=== PATIENT | female | born 1950 | race Caucasian/White ===

== ENCOUNTER 2017-06-09 09:26 | Day surgery (SDC) | payer BC ==
[~2017-06-09 09:26] MED LIST: Buffered Lidocaine 0.9% SYRIN* 5 ML/SYR SYRINGE INTRADERM ONE; Dexamethasone IV* 4 MG/ML 1 ML (4 MG) ONE; Famotidine IV* 10 MG/ML 2 ML (20 mg) IV ONE; KETAMINE HCL* 50 MG/ML 10 ML VIAL ONE; Ketorolac INJ* 30 MG/ML 1 ML VIAL ONE; Lidocaine 2% PF * 5 ML VIAL ONE; Midazolam* 1 MG/ML 5 ML VIAL (5 MG) ONE; Ondansetron INJ* 2 MG/ML VIAL ONE; Propofol* 10 MG/ML 20 ML BTL IV PUSH ONE; fentaNYL* 50 MCG/ML 2 ML VIAL (100 MCG VIAL) ONE
[2017-06-09] MEDS ORDERED: Famotidine IV* 10 MG/ML 2 ML (20 mg) ONE (09:39)
[2017-06-09] MEDS ORDERED: ceFAZolin 2 GM PREMIX (*) 50 ML IVPB ONE (09:40)
[2017-06-09] MEDS ORDERED: Buffered Lidocaine 0.9% SYRIN* 5 ML/SYR SYRINGE ONE (09:40)
[2017-06-09] MEDS ORDERED: Lidocaine 2% PF* 10 ML AMP ONE (09:58)
[2017-06-09] MEDS ORDERED: Midazolam* 1 MG/ML 2 ML VIAL (2 MG) ONE (10:46)
[2017-06-09] MEDS ORDERED: Ondansetron INJ* 2 MG/ML VIAL IV PRN (11:03)
[2017-06-09] MEDS ORDERED: fentaNYL* 50 MCG/ML 2 ML VIAL (100 MCG VIAL) ONE (11:54)
[2017-06-09] MEDS ORDERED: oxyCODONE/Acetamin 5/325 MG* TAB ONE ×2 (11:54→12:39)
[2017-06-09] MEDS: oxyCODONE/Acetamin 5/325 MG* TAB PO PRN ×2 (11:56→12:43)
[2017-06-09] MEDS: fentaNYL* 50 MCG/ML 2 ML VIAL (100 MCG VIAL) IV PRN ×4 (11:58→12:42)
[2017-06-09 13:17] VITALS: BP 158/81
--- NOTE | 2017-06-10 03:13 | OP ---
DATE OF OPERATION: 06/09/17 [facility] DATE OF : 52 SURGEON: David Hodge MD PHYSICIAN ASSISTANT PSYCHIATRY: JANE Crews ANESTHESIOLOGIST: Josue Romero MD ANESTHESIA: Monitored anesthesia care. PRE-OP DIAGNOSIS: Right first metatarsophalangeal joint arthritis. POST-OP DIAGNOSIS: Right first metatarsophalangeal joint arthritis. OPERATIVE PROCEDURE: Right first MTP joint fusion. DESCRIPTION OF PROCEDURE: The patient was taken to the operating room where a longitudinal incision was made over the first MTP joint. We incised medial and lateral to allow visualization of the joint, which was prepared for arthro- desis using a rongeur and a small power bur. We then pinned this in a neutral position with an oblique 4.0 cannulated lag screw and a F3 plate over the dorsum. A combination of locking and non-locking screws was used. X-ray intra- operatively showed satisfactory position of the hardware in the toe. We then irrigated thoroughly closing the 3-0 Vicryl dorsally, nylon for the skin, and a compression dressing. [id number]/[facility] #: [id number] MTDD
--- NOTE | 2017-06-10 07:19 | RAD ---
INDICATION: Right foot first metatarsal-phalangeal joint fusion. COMPARISON: Comparison is made with a prior x-ray study of the right foot from May 21, 2017. TECHNIQUE: 2.1 seconds of intermittent fluoroscopic guidance were provided and 2 spot films of the right foot were obtained in the operating room. FINDINGS: The films demonstrate a surgical screw and metallic plate transfixed with multiple surgical screws spanning the first metatarsal-phalangeal joint of the right foot. IMPRESSION: INTRAOPERATIVE CONTROL FILMS. CPT II Codes: 6045F
== END 2017-06-09 13:18 | disposition home or self-care (01) ==
LOC: OR 09:26
PROVIDERS: ATTEND Orthopaedic Surgery
DX: M19.071 Primary osteoarthritis, right ankle and foot (principal); F90.9 Attention-deficit hyperactivity disorder, unspecified type; F32.9 Major depressive disorder, single episode, unspecified; Z88.6 Allergy status to analgesic agent
CPT/HCPCS: 76000; A9270-GY; C1713; C1776; J0690; J1100; J1885; J2001; J2250; J2405; J2704; J3010

== ENCOUNTER 2019-03-06 11:14 | Inpatient (IN) | payer MEDICARE ==
[2019-03-06] MEDS ORDERED: Ticagrelor* 90 MG TAB PO ONE (11:18)
[2019-03-06] MEDS ORDERED: Heparin for STEMI(*) 5,000 UNITS/ML 1 ML VIAL IV ONE ×2 (11:18→11:20)
[2019-03-06] MEDS ORDERED: Ondansetron INJ* 2 MG/ML VIAL IV ONE (11:19)
[2019-03-06] MEDS ORDERED: Nitroglycerin TAB 0.4 MG* 0.4 MG TAB ONE (11:19)
[2019-03-06] MEDS ORDERED: Morphine 4 MG/ML VIAL (1 ml) 4 MG/ML VIAL IV ONE (11:19)
[2019-03-06] MEDS ORDERED: nitroGLYCERIN DRIP* 25,000 MCG/250 ML BTL ONE ×2 (11:20→11:45)
[2019-03-06] MEDS ORDERED: Aspirin 81 mg CHEW TAB* 81 MG TAB.CHEW ONE (11:20)
[2019-03-06] MEDS ORDERED: Morphine 4 MG/ML VIAL (1 ml) 4 MG/ML VIAL ONE (11:20)
[2019-03-06] MEDS ORDERED: Ondansetron INJ* 2 MG/ML VIAL ONE (11:20)
[2019-03-06] MEDS ORDERED: Aspirin 81 mg CHEW TAB* 81 MG TAB.CHEW PO ONE (11:23)
[2019-03-06] MEDS ORDERED: nitroGLYCERIN DRIP* 25,000 MCG/250 ML BTL IV ONE (11:26)
[2019-03-06 11:27] LABS: ABS Basophils 0.1 10^3/ul (0-0.2); ABS Eosinophils 0.1 10^3/ul (0-0.6); ABS Lymphocytes 2.9 10^3/ul (1.0-4.8); ABS Monocytes 0.7 10^3/ul (0-0.8); ABS Neutrophils 5.5 10^3/ul (1.5-7.7); Eosinophil % 1.6 %; Hematocrit 44 % (35-47); Lymphocyte % 31.2 %; Mean Corpuscular HGB Conc 34 g/dL (31-36); Mean Corpuscular Hemoglobin 30 pg (27-31); Mean Corpuscular Volume 88 fL (80-97); Mean Platelet Volume 8.4 fL (7.4-10.4); Platelet Count 243 10^3/uL (150-450); Red Blood Count 4.97 10^6 /uL (3.70-4.87); Red Cell Distribution Width 13 % (10-15); White Blood Count 9.2 10^3/uL (3.5-10.8)
--- NOTE | 2019-03-06 11:29 | ED ---
HPI Chest Pain - HPI Summary HPI Summary: Time seen by provider: 1121. The patient is a 68 y/o F presenting to [facility] with a chief complaint of sudden onset CP starting this morning with worsening since onset. She states that she did not wake up with the pain, but she's been having upper left back pain, which she thought was a result of recent heavy lifting. The sharp pain is currently rated 10/10 in severity. She additionally c/o nausea but no vomiting. Hx of HTN, but no previous cardiac problems. She had a recent cardiac workup with Dr. Little, bowl turner, in November, and there were no significant findings present at that time, but she has since began to work out more and eat better. Nonsmoker, daily EtOH, no substance use. - History of Current Complaint Time Seen by Provider: 03/06/19 11:17 Hx Obtained From: Patient Onset/Duration: Started Minutes Ago, Still Present Timing: Lasting Minutes Initial Severity: Moderate Current Severity: Severe Pain Intensity: 10 Pain Scale Used: 0-10 Numeric Chest Pain Location: Diffuse Chest Pain Radiates: Yes Chest Pain Radiates To:: Back - left upper Character: Sharp/Stabbing Aggravating Factor(s): Nothing Alleviating Factor(s): Nothing Associated Signs and Symptoms: Positive: Chest Pain, Nausea. Negative: Vomiting - Allergy/Home Medications Allergies/Adverse Reactions: Allergies Allergy/AdvReac Type Severity Reaction Status Date / Time ibuprofen Allergy Rash Verified 03/06/19 11:39 Home Medications: Home Medications Amlodipine 2.5 mg tab 2.5 mg PO DAILY 03/06/19 [History Confirmed 03/06/19] Metoprolol Succinate 25 mg PO BID 03/06/19 [History Confirmed 03/06/19] Venlafaxine HCl [Venlafaxine HCl ER] 37.5 mg PO DAILY 03/06/19 [History Confirmed 03/06/19] PMH/Surg Hx/FS Hx/Imm Hx Endocrine/Hematology History: Denies: Hx Diabetes, Hx Thyroid Disease Cardiovascular History: Reports: Hx Hypertension Respiratory History: Denies: Hx Asthma Musculoskeletal History: Reports: Hx Arthritis - GENERALIZED OSTEO, Hx Rheumatoid Arthritis, Hx Osteoporosis, Other Musculoskeletal History Denies: Hx Scoliosis Sensory History: Reports: Hx Contacts or Glasses Denies: Hx Hearing Aid Opthamlomology History: Reports: Hx Contacts or Glasses Neurological History: Denies: Hx Headaches, Other Neuro Impairments/Disorders Psychiatric History: Reports: Hx Depression - ON MEDS PT STATES CONTROLLED - Cancer History Hx Chemotherapy: No Hx Radiation Therapy: No - Surgical History Surgery Procedure, Year, and Place: RIGHT SHOULDER REPAIR [place] [facility] [place], hysterectomy 1991, appendix 1972. LAPAROSCOPY 1988. AP REPAIR DR LACEY 2002 [facility] Hx Anesthesia Reactions: No Infectious Disease History: Denies: Hx Hepatitis, Traveled Outside the [place] in Last 30 Days - Family History Known Family History: Positive: Hypertension - Social History Alcohol Use: Daily Alcohol Amount: WINE Hx Substance Use: No Substance Use Type: Reports: None Hx Tobacco Use: No Smoking Status (MU): Never Smoked Tobacco Do You Chew or Dip Tobacco: No Have You Chewed or Dipped Tobacco in the LAST YEAR: No Have You Smoked in the Last Year: No Review of Systems Positive: Chest Pain Positive: Nausea. Negative: Vomiting Positive: Other - upper back pain on left side All Other Systems Reviewed And Are Negative: Yes Physical Exam - Summary Physical Exam Summary: VITAL SIGNS: Reviewed. GENERAL: Patient is a well-developed and nourished female who is in distress secondary to the pain. Patient is not in any acute respiratory distress. HEAD AND FACE: No signs of trauma. No ecchymosis, hematomas or skull depressions. No sinus tenderness. EYES: PERRLA, EOMI x 2, No injected conjunctiva, no nystagmus. EARS: Hearing grossly intact. Ear canals and tympanic membranes are within normal limits. MOUTH: Oropharynx within normal limits. NECK: Supple, trachea is midline, no adenopathy, no JVD, no carotid bruit, no c- spine tenderness, neck with full ROM. CHEST: Symmetric, no tenderness at palpation LUNGS: Clear to auscultation bilaterally. No wheezing or crackles. CVS: Regular rate and rhythm, S1 and S2 present, no murmurs or gallops appreciated. ABDOMEN: Soft, non-tender. No signs of distention. No rebound no guarding, and no masses palpated. Bowel sounds are normal. EXTREMITIES: FROM in all major joints, no edema, no cyanosis or clubbing. NEURO: Alert and oriented x 3. No acute neurological deficits. Speech is normal and follows commands. SKIN: Dry and slightly clammy. Triage Information Reviewed: Yes Vital Signs Reviewed: Yes Diagnostics - Laboratory Result Diagrams: 03/06/19 11:22 03/06/19 15:01 Lab Statement: Any lab studies that have been ordered have been reviewed, and results considered in the medical decision making process. - Radiology CXR Radiology Interpretation Completed By: Radiologist Summary of Radiographic Findings: Findings suggestive of COPD, no evidence for acute disease. ED physician has reviewed this radiology report. - EKG 1116 Cardiac Rate: NL - 92 BPM EKG Rhythm: Sinus Rhythm Summary of EKG Findings: ST elevations in aVR, V1, V2, V3, and V4. ST depressions in II, III, and aVF. 1135 Cardiac Rate: NL - 94 BPM EKG Rhythm: Sinus Rhythm EKG Comparison: No Significant Change - Similar to EKG taken at 1116 on 2018 Summary of EKG Findings: ST elevations in aVR, V1, V2, V3, and V4. ST depressions in II, III, and aVF. Re-Evaluation - Re-Evaluation First Eval Re-Evaluation Time: 12:00 Comment: I discussed admission and next steps with the patient. Chest Pain Course/Dx - Course Assessment/Plan: The patient is a 68 y/o F presenting to [facility] with a chief complaint of sudden onset CP starting this morning. She states that she did not wake up with the pain, but she's been having upper left back pain, which she thought was a result of recent heavy lifting. The sharp pain is currently rated 10/10 in severity. She additionally c/o nausea but no vomiting. Hx of HTN, but no previous cardiac problems. She had a recent cardiac workup with Dr. Little, bowl turner, in November, and there were no significant findings present at that time. Nonsmoker, daily EtOH, no substance use. EKG shows a sinus rhythm at [address] elevations in aVR, V1, V2, V3 and V4, and ST depressions in II, III , and aVF. STEMI alert called at 1118. Patient was placed on a traffic monitor specialist; two IV access sites were obtained. Patient was started with aspirin, Brilinta, heparin, Zofran for nausea, and morphine for pain. The patient continues to have pain she was placed on the nitroglycerin drip. Blood work without any significant abnormality except for potassium level of 3.2, anion gap of 14, carbon dioxide of 20, troponin of 0.07, and BNP of 107. She was given potassium IV for her hypokalemia. At this point, I discussed my physical exam and findings with Dr. Horner from interventional cardiology. Dr. Horner is at bedside, and he will take the patient to the Assistant Professor Of Marine Biology. At this time the patient is hemodynamically stable alert and oriented 3. - Diagnoses Provider Diagnoses: STEMI (ST elevation myocardial infarction) During the Visit The Following Alert/Code Occurred: STEMI - called at 1118 - Provider Notifications Discussed Care Of Patient With: Jordyn Horner - special assets officer Time Discussed With Above Provider: 11:22 Instructed by Provider To: Other - I spoke with Dr. Horner concerning the patient's case; he will come see the patient in the ED. He admits the patient and will take her to the cath laboratory technician for further workup. - Critical Care Time Critical Care Time: 30-74 min Discharge - Sign-Out/Discharge Documenting (check all that apply): Patient Departure - Patient is admitted to [facility]. Patient Received Moderate/Deep Sedation with Procedure: No - Discharge Plan Condition: Stable Disposition: ADMITTED TO [facility] - Billing Disposition and Condition Condition: STABLE Disposition: Admitted to [facility] - Attestation Statements Document Initiated by Brendan: Yes Documenting Scribe: Shira Su Provider For Whom Brendan is Documenting (Include Credential): Dr. Carlos Ricks MD Scribe Attestation: IShira, scribed for Dr. Carlos Ricks MD on 03/06/19 at 1832. Scribe Documentation Reviewed: Yes Provider Attestation: The documentation as recorded by the Shira banda accurately reflects the service I personally performed and the decisions made by me, Dr. Carlos Ricks MD Status of Scribe Document: Ready
[2019-03-06 11:37] LABS: Activated Partial Thrombo Time 31.4 seconds (26.0-38.0); INR 0.9 (0.82-1.09)
[2019-03-06] MEDS ORDERED: fentaNYL* 50 MCG/ML 2 ML VIAL (100 MCG VIAL) ONE (11:44)
[2019-03-06] MEDS ORDERED: Midazolam* 1 MG/ML 5 ML VIAL (5 MG) ONE (11:44)
[2019-03-06] MEDS ORDERED: Heparin(*) 1000 UNIT/ML 10 ML VIAL CATH LAB IV ONE ×2 (11:44→13:28)
[2019-03-06] MEDS ORDERED: Lidocaine 1% INJ* 10 MG/ML 30 ML SDV ONE (11:45)
[2019-03-06] MEDS ORDERED: Iohexol 350 (CONTRAST) 200 ML MDV IV ONE ×2 (11:45→13:26)
[2019-03-06] MEDS ORDERED: VERAPAMIL 2.5 MG/ML 2 ML VIAL ** 5 mg/2 ml ONE ×2 (11:45→12:11)
[2019-03-06] MEDS ORDERED: Heparin 2 UNITS/ML IVPREMIX* 3,000 UNIT/1,500 ML BAG IV ONE (11:46)
[2019-03-06 11:48] LABS: ALT 15 U/L (7-52); AST 18 U/L (13-39); Albumin 4.8 g/dL (3.2-5.2); Alkaline Phosphatase 48 U/L (34-104); Anion Gap 14 mmol/L (2-11); Blood Urea Nitrogen 19 mg/dL (6-24); CO2 Carbon Dioxide 20 mmol/L (22-32); Calcium 9.8 mg/dL (8.6-10.3); Chloride 106 mmol/L (101-111); Creatine Kinase 83 U/L (10-223); EGFR African American 96.2 (>60); EGFR Non-African American 79.5 (>60); Globulin 2.4 g/dL (2-4); Glucose 137 mg/dL (70-100); LDL Cholesterol Direct 128 mg/dL; Potassium 3.2 mmol/L (3.5-5.0); Sodium 140 mmol/L (135-145); Total Protein 7.2 g/dL (6.4-8.9)
[2019-03-06 11:52] LABS: CKMB ng/mL 3.7 ng/mL (0.6-6.3)
[2019-03-06 12:01] LABS: Troponin I 0.07 ng/mL (<0.04)
[2019-03-06] MEDS ORDERED: KCL 10 MEQ/50 ML IVPREMIX* 10 MEQ/50 ML BAG ONE (12:25)
[2019-03-06] MEDS ORDERED: Metoprolol Tartrate IV* 1 MG/ML 5 ML VIAL ONE ×2 (12:25→12:50)
[2019-03-06 12:29] LABS: Cholesterol 225 mg/dL; HDL Cholesterol 71.4 mg/dL; LDL Cholesterol 125 mg/dL; Triglycerides 142 mg/dL
[2019-03-06] MEDS ORDERED: Nitroglycerin TAB 0.4 MG* 0.4 MG TAB SL PRN (13:50)
[2019-03-06] MEDS ORDERED: NS 0.9% 1000 ML** 1,000 ML IV SCH (14:00)
[2019-03-06] MEDS: KCL 10 MEQ/50 ML IVPREMIX* 10 MEQ/50 ML BAG IV SCH ×2 (14:55→16:00)
[2019-03-06] MEDS: Captopril TAB* 12.5 MG PO SCH ×2 (15:11→19:58)
[2019-03-06] MEDS: Carvedilol TAB* 6.25 MG PO SCH ×2 (15:11→19:58)
[2019-03-06 15:24] LABS: Creatine Kinase 1481 U/L (10-223); Potassium 3.6 mmol/L (3.5-5.0)
[2019-03-06 15:31] LABS: CKMB ng/mL 198.7 ng/mL (0.6-6.3)
[2019-03-06 15:33] LABS: Troponin I 21.66 ng/mL (<0.04)
--- NOTE | 2019-03-06 16:41 | HP ---
CC: Dr. Newell; Dr. Little HISTORY AND PHYSICAL: DATE OF ADMISSION: 03/06/19 PRIMARY CARE PHYSICIAN: Dr. Newell. PICKLING GRADER: Dr. Little. HISTORY OF PRESENT ILLNESS: A 68-year-old woman presenting to the ER with acute anteroseptal ST-elev ation infarct. She has been evaluated by Dr. Little in 2018 for palpitations with a negative Holter, echocardiogram with normal LV systolic function and a negative stress echo. She has been treated for hypertension. Yesterday, she was moving some objects, had some discomfort in her back, which she thought was muscul ar, although in retrospect, it was somewhat similar to the discomfort that she developed this morning , confined only to the upper back. This morning at around 9 o'clock, she developed chest pain, which was burning, radiated into both arm s, up to her neck, and across the top of her shoulder blades. She presented to the ER where EKG demon strated an acute anteroseptal ST-elevation infarct, STEMI was called. In the ER, she received a load ing dose of Brilinta, heparin 4000 units IV, was started on IV nitroglycerin, aspirin 324 mg. She wa s brought to the slab polisher. She has no history of heart failure symptoms or syncope. She is fairly active. PAST MEDICAL HISTORY: Hypertension, history of palpitations without syncope. PREHOSPITAL MEDICATIONS: 1. Toprol-XL 25 b.i.d. 2. Norvasc 2.5 daily. 3. Venlafaxine 37.5 mg daily. ALLERGIES: IBUPROFEN with hives, but tolerates aspirin without issue and occasional Aleve without pr oblem. FAMILY HISTORY: Positive for 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in her father in his 60s. SOCIAL HISTORY: She is a nonsmoker. She is . REVIEW OF SYSTEMS: General: No weight loss. No fever. WEBFOCUS DEVELOPER: No history of TIA or CVA. GI: No hi story of peptic ulcer disease or bleeding. : Negative. Circulatory: She had previous normal ABIs . Remainder all negative. PHYSICAL EXAM: GENERAL: When seen in the ER, she was still complaining of moderate chest discomfort. VITAL SIGNS: Her presenting BP 155/115 with a heart rate of 110. HEENT: Normal without xanthelasma, scleral injection or jaundice. EOMs normal. Cranial nerves gross ly intact. NECK: JVP and carotids normal. No bruits. No thyromegaly. Trachea midline. LUNGS: Clear to percussion and auscultation. CARDIAC: Texline and RV not palpable, regular rhythm. No audible gallop, murmur, or rub. ABDOMEN: Soft, nontender. No bruit. Aorta not palpable. Liver not palpable. Femoral pulses 2+. EXTREMITIES: Radial pulses 2+. Pedal pulses 2+. No cyanosis, clubbing, or edema. PSYCH: She is oriented and appropriate. SKIN: Warm and perfused. DIAGNOSTIC STUDIES/LAB DATA: CBC is unremarkable. BMP notable for a potassium of 3.2, creatinine 0. 73. Her random blood sugar is 137 without prior, A1c is 5.7. BNP elevated at 137. First troponin 0. 07. Cholesterol 225 with triglycerides 142, LDL 125, direct LDL 128, HDL 71.4. Chest x-ray per report, no acute changes. IMPRESSION AND PLAN: 1. Acute anteroseptal ST-elevation infarct. She underwent emergent catheterization. 2. Hypertension. 3. Dyslipidemia. 4. History of palpitations with negative previous workup. [id number]/[facility] #: [id number]
[2019-03-06] MEDS: Atorvastatin* 80 MG TAB PO SCH (17:46)
[2019-03-06] MEDS: Acetaminophen TAB* 325 MG PO PRN (19:58)
[2019-03-06] MEDS: Ticagrelor* 90 MG TAB PO SCH (19:58)
[2019-03-06 20:46] LABS: Troponin I 41.93 ng/mL (<0.04)
[2019-03-06 20:47] LABS: CKMB ng/mL > 304.0 ng/mL (0.6-6.3)
[2019-03-06 21:21] LABS: Creatine Kinase 2304 U/L (10-223)
[2019-03-06] MEDS: Metoprolol Tartrate TAB* 25 MG PO SCH (21:31)
[2019-03-06] MEDS ORDERED: Enoxaparin(*) 60 MG/0.6 ML SYR SUBCUT SCH (22:00)
[2019-03-07 02:35] LABS: Creatine Kinase 1507 U/L (10-223)
[2019-03-07 02:41] LABS: CKMB ng/mL 242.2 ng/mL (0.6-6.3)
[2019-03-07 02:46] LABS: Troponin I 47.78 ng/mL (<0.04)
[2019-03-07] MEDS: Metoprolol Tartrate TAB* 25 MG PO SCH ×3 (03:47→16:57)
[2019-03-07] MEDS ORDERED: Furosemide IV* 10 MG/ML VIAL (40 MG) IV ONE (05:03)
[2019-03-07 05:51] LABS: Anion Gap 7 mmol/L (2-11); BUN/Creatinine Ratio 23.2 (8-20); Blood Urea Nitrogen 16 mg/dL (6-24); CO2 Carbon Dioxide 24 mmol/L (22-32); Chloride 106 mmol/L (101-111); EGFR African American 102.7 (>60); EGFR Non-African American 84.9 (>60); Glucose 136 mg/dL (70-100); Potassium 3.8 mmol/L (3.5-5.0); Sodium 137 mmol/L (135-145)
[2019-03-07 06:03] LABS: Troponin I 44.89 ng/mL (<0.04)
--- NOTE | 2019-03-07 06:32 | PN ---
Hospitalist Progress Note Date of Service: 03/07/19 Called abt pt, persistent hypoxia overngiht, asymptomatic, no new chest pain, desats to high 80s while sleeping, and needs 4L to maintain sats, even after waking. No new tachycardia or cardiac sx Repeat CXR mild interstitial markings and as per prior hyperinflated lungs, no hx of COPD or smoking per H&P, will trial low dose diuretic and if no improvement may need to consider r/o PE or other V/Q mismatch
[2019-03-07] MEDS: Captopril TAB* 12.5 MG PO SCH ×3 (08:18→20:49)
[2019-03-07] MEDS: Ticagrelor* 90 MG TAB PO SCH ×2 (08:18→20:49)
[2019-03-07] MEDS: Aspirin 81 mg CHEW TAB* 81 MG TAB.CHEW PO SCH (08:18)
[2019-03-07] MEDS: Enoxaparin(*) 60 MG/0.6 ML SYR SUBCUT SCH (12:51)
[2019-03-07] MEDS: Venlafaxine EXT RELEASE CAP* 37.5 MG PO SCH (12:51)
[2019-03-07] MEDS: Atorvastatin* 80 MG TAB PO SCH (16:57)
[2019-03-08] MEDS: Enoxaparin(*) 60 MG/0.6 ML SYR SUBCUT SCH ×3 (00:03→23:46)
[2019-03-08] MEDS: Metoprolol Tartrate TAB* 25 MG PO SCH ×5 (01:00→20:49)
[2019-03-08] MEDS: Ticagrelor* 90 MG TAB PO SCH ×2 (07:20→20:49)
[2019-03-08] MEDS: Pantoprazole TAB * 40 MG TAB PO SCH (07:20)
[2019-03-08] MEDS: Captopril TAB* 12.5 MG PO SCH ×3 (07:20→20:49)
[2019-03-08] MEDS: Aspirin 81 mg CHEW TAB* 81 MG TAB.CHEW PO SCH (07:20)
[2019-03-08] MEDS: Venlafaxine EXT RELEASE CAP* 37.5 MG PO SCH (09:16)
--- NOTE | 2019-03-08 13:38 | CATH ---
CC: Dr. Newell; Dr. Little STENT REPORT: DATE OF PROCEDURE: PRIMARY CARE PHYSICIAN: Dr. Newell. CARPET MEASURER: Dr. Little. PROCEDURE: Right radial artery access, bilateral selective coronary cineangiography, left heart cath eterization, left ventriculography, stent placement, LAD 2.75 x 16 Synergy drug-eluting stent, with p roximal overlapping 2.5 x 8 Synergy drug-eluting stent. HISTORY: A 68-year-old woman with prediabetes, hypertension, and hyperlipidemia, presenting with acu te anterolateral ST elevation infarct. PROCEDURE ACCESS: Right radial artery sheath 6F slender. MEDICATIONS: 1. Subcu lidocaine. 2. IV versed. 3. IV fentanyl. 4. Nitroglycerin 300 mcg. 5. Verapamil 3 mg IA. 6. She received loading dose of Brilinta 180 mg as well as 4000 units of heparin and aspirin in the ER. 7. Additional heparin 6000 units IV total. 8. Lopressor 5, 5 mg IV. DIAGNOSTIC CATHETERS: 5F TIG4. GUIDING CATHETER: LAD, 6FLBU 3.5 wire 14 BMW, which was used to cross the proximal LAD near occlusio n, which was predilated with 2.5 x 12 balloon 6 atmospheres for 8 seconds. The area was then stented with a 2.75 x 16 Synergy drug-eluting stent, 11 atmospheres 20 seconds, post dilated with a 2.75 x 8 NC, distally to 12 atmospheres was 16, in the mid at 16 atmospheres 40 seconds, and proximally 16 at mospheres with 30 seconds. Due to a persisting ostial 75% to 80% LAD stenosis. In spite of a total of 750 mcg of IC nitroglycerin and additional stent, 2.5 x Synergy drug-eluting stent was depl oyed at the ostium of the LAD 11 atmospheres 10 seconds, post dilated with a 2.5 x 8 NC at the ostium 16 atmospheres of 30 seconds then the overlap area to 20 atmospheres for 30 seconds. The small sept al review analyst which likely had thrombus and slow flow was probed with the wire before the second sten t without any change. 5F pigtail was then used for left heart catheterization and the left ventricul ogram. HEMODYNAMICS: Initial AO 121/72, post revascularization LV 95/16 - 27, no aortic valve gradient on p ullback. ANGIOGRAPHY: Left Main: The left main is normal with minimal ostial irregularity. LAD: The LAD is moderate in size and extensive distribution, has a thrombus containing proximal 95 p manohar percent stenosis with distal EDIN-1 flow. Circumflex: The circumflex is large, codominant with a moderate marginal, a small ramus, 2 moderate posterolaterals, and ends with a small circumflex PDA. The circumflex has no significant stenosis. RCA: The RCA is relatively small, codominant with a proximal 30% stenosis, it supplies a small to mo derate PDA. After revascularization of the LAD and stenting of the persisting ostial LAD lesion, post dilatation, there is still some haziness of the origin of the first septal review analyst, the small side branch of the first diagonal persists with a tubular 80% stenosis, reference diameter less than 2 mm. Distally the LAD wraps around the apex. At the end of the procedure she is pain free. LV Gram: There is preserved anterobasal contraction as well as inferior contraction, the anterolater al wall, and apex are akinetic, visually estimated LVEF of 30%. There is no MR. CONCLUSION: 1. Single vessel disease proximal LAD, excellent angiographic result with drug- eluting stent placem ent. 2. Severe left ventricular systolic dysfunction, hopefully at least in part due to stunning. 3. Residual stenosis of the small first septal and small side branch of the first diagonal, too smal l for intervention. 4. Elevated LVEDP, otherwise unremarkable left-sided hemodynamics. 5. Successful right radial artery access. [id number]/[facility] #: [id number]
[2019-03-08] MEDS: Atorvastatin* 80 MG TAB PO SCH (17:00)
[2019-03-09 06:43] LABS: BUN/Creatinine Ratio 20.8 (8-20); EGFR African American 90.5 (>60); EGFR Non-African American 74.8 (>60); Potassium 3.9 mmol/L (3.5-5.0)
[2019-03-09] MEDS: Aspirin 81 mg CHEW TAB* 81 MG TAB.CHEW PO SCH (09:11)
[2019-03-09] MEDS: Pantoprazole TAB * 40 MG TAB PO SCH (09:11)
[2019-03-09] MEDS: Captopril TAB* 12.5 MG PO SCH ×3 (09:11→20:55)
[2019-03-09] MEDS: Venlafaxine EXT RELEASE CAP* 37.5 MG PO SCH (09:11)
[2019-03-09] MEDS: Metoprolol Tartrate TAB* 25 MG PO SCH ×3 (09:12→20:55)
[2019-03-09] MEDS: Ticagrelor* 90 MG TAB PO SCH ×2 (09:12→20:56)
--- NOTE | 2019-03-09 09:57 | ECHO ---
*[facility]* [place] [address] Fax #: [phone] Patient: Jessy Height: 63 in / Pita Tracey 160 cm : 1950 Weight: 139.7 lb / Study Date: 03/09/2019 63.5 kg Age: 68 BP: 91 / 59 Gender: F BMI/BSA: 24.8 HR: 90 bpm kg/m^2 / 1.66 m^2 *Transformation Analyst: * Nova Rucker [facility] *Referring Physician: * Jordyn Horner MD *Reading Physician: * Yuri Oropeza MD Indications: Myocardial Infarction (new). History: PMH: Anterolateral myocardial infarction (current admission, 03/06/2019). Risk factors: Hypertension. Hyperlipidemia. Labs, prior tests, procedures, and surgery: Catheterization (03/06/2019). There was a stenosis which was treated with a stent. Conclusions Summary: 1. Left ventricle: Systolic function is moderately reduced. The estimated ejection fraction is 30-35%. 2. Regional wall motion abnormality: Akinesis of the apical anterior myocardium; moderate hypokinesis of the mid anterior, mid anteroseptal, and apical myocardium; mild hypokinesis of the apical septal and apical lateral myocardium. 3. Right ventricle: Systolic function is normal. 4. Mitral valve: The possibility of chordal rupture cannot be excluded. There is trace regurgitation. 5. Aortic valve: There is no evidence of stenosis. There is no significant regurgitation. 6. Pericardium, extracardiac: There is no significant pericardial effusion. Study data: Procedure: Transthoracic echocardiography was performed. Image quality was fair. Complete 2D, spectral Doppler, and color flow Doppler. Location: Bedside. Patient status: Inpatient. Patient room number: 442-1. Rhythm: Normal sinus rhythm. Findings Left ventricle: The cavity size is normal. Wall thickness is normal. Systolic function is moderately reduced. The estimated ejection fraction is 30-35%. Regional wall motion abnormalities: Hypokinesis of the mid-apicalinferoseptal myocardium. Hypokinesis of the mid-apicalanterior and anterolateral myocardium. Akinesis of the mid-apicalanteroseptal myocardium. Akinesis of the apical anterior myocardium; moderate hypokinesis of the mid anterior, mid anteroseptal, and apical myocardium; mild hypokinesis of the apical septal and apical lateral myocardium. Doppler parameters are consistent with abnormal left ventricular relaxation (grade 1 diastolic dysfunction). Right ventricle: The cavity size is normal. Systolic function is normal. Systolic pressure is within the normal range. Left atrium: The atrium is normal in size. Right atrium: The atrium is normal in size. Mitral valve: The annulus is calcified. The leaflets are mildly thickened. The possibility of chordal rupture cannot be excluded. There is no evidence of stenosis. There is trace regurgitation. Aortic valve: The valve is trileaflet. The leaflets are normal thickness. There is no evidence of stenosis. There is no significant regurgitation. Tricuspid valve: The leaflets are normal thickness. There is no evidence of stenosis. There is trace to mild regurgitation. Pulmonic valve: The leaflets are normal thickness. There is no evidence of stenosis. There is trivial regurgitation. Aorta: Ascending aorta: The ascending aorta is appears normal. Aortic arch: The aortic arch is appears normal. The aortic root is not dilated. Pericardium: There is no significant pericardial effusion. Pulmonary arteries: Not well visualized. Systemic veins: Inferior vena cava: The vessel is normal in size. The respirophasic diameter changes are in the normal range (>= 50%). Measurements Left ventricle Value Ref Aortic valve Value Ref WILDA, LAX 4.6 cm 3.8 - 5.2 Patrick diam, ED 1.8 cm ----- ESD, LAX 3.1 cm 2.2 - 3.5 Peak v, S 1.12 m/sec ----- FS, LAX 33 % 27 - 45 VTI, S 18.2 cm ----- PW, ED, LAX 0.9 cm 0.6 - 0.9 Mean grad, S 3.0 mm Hg ----- FS (L) 22 % 27 - 45 Peak grad, S 5.0 mm Hg ----- Mid-wall FS 9 % LVOT/AV, VTI ratio 0.88 ----- PW, ED 0.9 cm 0.6 - 0.9 E', lat patrick, TDI (L) 4.7 cm/sec >=10.0 Mitral valve Value Ref E/e', lat patrikc, 17 Peak E 0.78 m/sec ----- TDI Peak A 0.93 m/sec ----- E', med patrick, TDI (L) 5.7 cm/sec >=7.0 Decel time 166 ms --- -- E/e', med patrick, 14 Peak grad, D 2.4 mm Hg ----- TDI Peak E/A ratio 0.8 ----- E', avg, TDI 5.2 cm/sec E/e', avg, TDI (H) 15 <=14 Pulmonic valve Value Ref Peak v, S 0.79 m/sec ----- LVOT Value Ref Peak grad, S 3.0 mm Hg ----- Peak arthur, S 0.88 m/sec VTI, S 16.0 cm Tricuspid valve Value Ref Mean grad, S 2 mm Hg TR peak v 2.3 m/sec <=2.8 Peak RV-RA grad, S 21 mm Hg ----- Ventricular septum Value Ref IVS, ED 0.9 cm 0.6 - 0.9 Aortic root Value Ref Root diam 3.2 cm <3.9 Right ventricle Value Ref WILDA, LAX 2.5 cm Ascending aorta Value Ref WILDA minor ax, A4C 3.1 cm 1.9 - 3.5 AAo AP diam, S 2.8 cm ----- mid Pressure, S 24 mm Hg Aortic arch Value Ref Arch diam 1.8 cm ----- Left atrium Value Ref AP dim, ES 2.90 cm 2.70 - Decending aorta Value Ref 3.80 Eduardo peak arthur 0.6 m/sec ----- ML dim, A4C 3.9 cm SI dim, A4C 4.2 cm Pulmonary artery Value Ref Vol/bsa, ES, 1-p 22 ml/m^2 11 - 40 Pressure, S 21.0 mm Hg ----- A4C Vol/bsa, ES, A/L 27 ml/m^2 16 - 34 Inferior vena cava Value Ref Diam 1.7 cm ----- Right atrium Value Ref SI dim, ES 3.6 cm 3.4 - 5.3 ML dim, ES, A4C 3.5 cm 2.6 - 4.4 SI dim, ES, A4C 3.6 cm 3.4 - 5.3 Estimated RAP 3 mm Hg Legend: (L) and (H) marika values outside specified reference range. Prepared and electronically signed by Yuri Oropeza MD 03/09/2019 09:56
--- NOTE | 2019-03-09 11:09 | PN ---
<ZoeyjesusLynnette - Last Filed: 03/09/19 11:03> Subjective Date of Service: 03/09/19 - anterior STEMI s/p PCI, SHF Interval History: No events last night, Patient denies chest pain, dizziness, palpitations, sensation of heart racing, syncope. She has been up and ambulating halls with no problems. She is asking if she can shower. Medications Active Medications: Acetaminophen (Tylenol Tab*) 650 mg PO Q4H PRN PRN Reason: HEADACHE/PAIN Last Admin: 03/06/19 19:58 Dose: 650 mg Aspirin (Aspirin 81 Mg Chew Tab*) 81 mg PO DAILY [facility] Last Admin: 03/09/19 09:11 Dose: 81 mg Atorvastatin Calcium (Lipitor*) 80 mg PO 1700 [facility] Last Admin: 03/08/19 17:00 Dose: 80 mg Captopril (Capoten Tab*) 12.5 mg PO TID [facility] Last Admin: 03/09/19 09:11 Dose: 12.5 mg Enoxaparin Sodium (Lovenox(*)) 60 mg SUBCUT Q12H [facility] Last Admin: 03/08/19 23:46 Dose: 60 mg Metoprolol Tartrate (Lopressor Tab*) 50 mg PO TID [facility] Last Admin: 03/09/19 09:12 Dose: 50 mg Nitroglycerin (Nitroglycerin Tab 0.4 Mg*) 0.4 mg SL Q5M PRN PRN Reason: ANGINA Last Admin: 03/07/19 00:05 Dose: 0.4 mg Pantoprazole Sodium (Protonix Tab*) 40 mg PO DAILY [facility] Last Admin: 03/09/19 09:11 Dose: 40 mg Ticagrelor (Brilinta*) 90 mg PO BID [facility] Last Admin: 03/09/19 09:12 Dose: 90 mg Venlafaxine HCl (Effexor Xr Cap*) 37.5 mg PO DAILY [facility] Last Admin: 03/09/19 09:11 Dose: 37.5 mg Objective Vital Signs: Temp Pulse Resp BP Pulse Ox 98.3 F 98 16 99/64 97 03/09/19 07:36 03/09/19 07:36 03/09/19 08:00 03/09/19 07:36 03/09/19 07:36 Oxygen Devices in Use Now: None Appearance: well nourished, A+O x3, NAD Ears/Nose/Mouth/Throat: NL Teeth, Lips, Gums, Mucous Membranes Moist Neck: NL Appearance and Movements; NL JVP Respiratory: Symmetrical Chest Expansion and Respiratory Effort, Clear to Auscultation Cardiovascular: NL Sounds; No Murmurs; No JVD, RRR, No Edema Extremities: No Edema Neurological: Alert and Oriented x 3 Lines/Tubes/Other Access: Clean, Dry and Intact Peripheral IV Laboratory Results: 03/06/19 11:22 03/09/19 05:50 INR (Anticoag Therapy) 0.90 (0.82-1.09) 03/06/19 11:22 APTT 31.4 seconds (26.0-38.0) 03/06/19 11:22 Total Bilirubin 0.50 mg/dL (0.2-1.0) 03/06/19 11:22 AST 18 U/L (13-39) 03/06/19 11:22 ALT 15 U/L (7-52) 03/06/19 11:22 Alkaline Phosphatase 48 U/L (34-104) 03/06/19 11:22 CK-MB (CK-2) 242.2 ng/mL (0.6-6.3) H 03/07/19 02:00 B-Natriuretic Peptide 137 pg/mL (<=100) H 03/06/19 11:22 Total Protein 7.2 g/dL (6.4-8.9) 03/06/19 11:22 Albumin 4.8 g/dL (3.2-5.2) 03/06/19 11:22 Globulin 2.4 g/dL (2-4) 03/06/19 11:22 Albumin/Globulin Ratio 2.0 (1-3) 03/06/19 11:22 Triglycerides 142 mg/dL 03/06/19 11:22 Cholesterol 225 mg/dL 03/06/19 11:22 LDL Cholesterol 125 mg/dL 03/06/19 11:22 HDL Cholesterol 71.4 mg/dL 03/06/19 11:22 03/06/19 03/06/19 03/06/19 11:22 15:01 20:15 Troponin I 0.07 H* 21.66 H* 41.93 H* 03/07/19 03/07/19 02:00 05:27 Troponin I 47.78 H* 44.89 H* Laboratory Results - last 24 hr 03/09/19 05:50 Sodium 141 Potassium 3.9 Chloride 107 Carbon Dioxide 28 Anion Gap 6 BUN 16 Creatinine 0.77 Est GFR ( Amer) 90.5 Est GFR (Non-Af Amer) 74.8 BUN/Creatinine Ratio 20.8 H Glucose 117 H Calcium 9.0 Diagnostic Imaging: Limited echo today per verbal report per Dr. Horner LVEF < 35% [facility] 03/08/2019 please refer to dictated report in EHR EKG Data: 03/09/2019; Sinus Rhythm rate 96, anterolater ST elevation in V 1-4. 1mm inferior ST depression. + anterior Q waves. Assessment/Plan #1 ? Late presenting anterior STEMI; Presented with c/o anterior chest pain described as burning radiating into neck. Troponin peaked 03/07/2019 at 47. s/p DESx2 Proximal LAD with known septal case liner lesion not amendable to PCI per report. On ASA 81/day, Brillinta 90mg Po BID, Lipitor 80mg PO QHS and Lopressor therapy. No recurrent c/o chest pain since PCI. EKG still reveals Anterolateral ST elevation. Will repeat Troponin and follow. Patient may shower off tely #2 ICM; LVEF < 35 on todays limited echo. Compensated on exam. Continue medical therapy unable to uptitrate. #3 h/o HLD goal LDL < 70 on high intensity statin therapy #4 h/o HTN; BP stable. #5 Disposition pending course. Patient full code. Lifevest order placed. will follow Attending: Jordyn Horner <Jordyn Horner - Last Filed: 03/09/19 18:11> Medications Active Medications: Acetaminophen (Tylenol Tab*) 650 mg PO Q4H PRN PRN Reason: HEADACHE/PAIN Last Admin: 03/06/19 19:58 Dose: 650 mg Aspirin (Aspirin 81 Mg Chew Tab*) 81 mg PO DAILY [facility] Last Admin: 03/09/19 09:11 Dose: 81 mg Atorvastatin Calcium (Lipitor*) 80 mg PO 1700 [facility] Last Admin: 03/08/19 17:00 Dose: 80 mg Captopril (Capoten Tab*) 12.5 mg PO TID [facility] Last Admin: 03/09/19 14:06 Dose: 12.5 mg Enoxaparin Sodium (Lovenox(*)) 60 mg SUBCUT Q12H [facility] Last Admin: 03/09/19 14:07 Dose: 60 mg Metoprolol Tartrate (Lopressor Tab*) 50 mg PO TID [facility] Last Admin: 03/09/19 14:06 Dose: 50 mg Nitroglycerin (Nitroglycerin Tab 0.4 Mg*) 0.4 mg SL Q5M PRN PRN Reason: ANGINA Last Admin: 03/07/19 00:05 Dose: 0.4 mg Pantoprazole Sodium (Protonix Tab*) 40 mg PO DAILY [facility] Last Admin: 03/09/19 09:11 Dose: 40 mg Ticagrelor (Brilinta*) 90 mg PO BID [facility] Last Admin: 03/09/19 09:12 Dose: 90 mg Venlafaxine HCl (Effexor Xr Cap*) 37.5 mg PO DAILY [facility] Last Admin: 03/09/19 09:11 Dose: 37.5 mg Objective Vital Signs: Temp Pulse Resp BP Pulse Ox 98.1 F 90 16 122/69 99 03/09/19 11:30 03/09/19 11:30 03/09/19 11:30 03/09/19 11:30 03/09/19 11:30 Laboratory Results: 03/06/19 11:22 03/09/19 05:50 INR (Anticoag Therapy) 0.90 (0.82-1.09) 03/06/19 11:22 APTT 31.4 seconds (26.0-38.0) 03/06/19 11:22 Total Bilirubin 0.50 mg/dL (0.2-1.0) 03/06/19 11:22 AST 18 U/L (13-39) 03/06/19 11:22 ALT 15 U/L (7-52) 03/06/19 11:22 Alkaline Phosphatase 48 U/L (34-104) 03/06/19 11:22 CK-MB (CK-2) 242.2 ng/mL (0.6-6.3) H 03/07/19 02:00 B-Natriuretic Peptide 137 pg/mL (<=100) H 03/06/19 11:22 Total Protein 7.2 g/dL (6.4-8.9) 03/06/19 11:22 Albumin 4.8 g/dL (3.2-5.2) 03/06/19 11:22 Globulin 2.4 g/dL (2-4) 03/06/19 11:22 Albumin/Globulin Ratio 2.0 (1-3) 03/06/19 11:22 Triglycerides 142 mg/dL 03/06/19 11:22 Cholesterol 225 mg/dL 03/06/19 11:22 LDL Cholesterol 125 mg/dL 03/06/19 11:22 HDL Cholesterol 71.4 mg/dL 03/06/19 11:22 03/06/19 03/06/19 03/06/19 11:22 15:01 20:15 Troponin I 0.07 H* 21.66 H* 41.93 H* 03/07/19 03/07/19 03/09/19 02:00 05:27 11:21 Troponin I 47.78 H* 44.89 H* 10.88 H* Assessment/Plan Stronger, ambulating w less "windedness". No orthostatic sx, no CP. RUE ok. CHF compensated, d/w her stunned vs infarcted myocardium, management. consolidate Rx.
[2019-03-09 12:06] LABS: Troponin I 10.88 ng/mL (<0.04)
[2019-03-09] MEDS: Enoxaparin(*) 60 MG/0.6 ML SYR SUBCUT SCH ×2 (14:07→23:30)
[2019-03-09] MEDS: Atorvastatin* 80 MG TAB PO SCH (17:24)
[2019-03-09] MEDS: Spironolactone TAB* 25 MG PO SCH (19:15)
[2019-03-10 06:58] LABS: BUN/Creatinine Ratio 19.2 (8-20); Calcium 9.1 mg/dL (8.6-10.3); EGFR African American 89.1 (>60); EGFR Non-African American 73.7 (>60); Potassium 4.1 mmol/L (3.5-5.0)
[2019-03-10] MEDS: Aspirin 81 mg CHEW TAB* 81 MG TAB.CHEW PO SCH (08:26)
[2019-03-10] MEDS: Spironolactone TAB* 25 MG PO SCH (08:26)
[2019-03-10] MEDS: Ticagrelor* 90 MG TAB PO SCH ×2 (08:26→20:52)
[2019-03-10] MEDS: Venlafaxine EXT RELEASE CAP* 37.5 MG PO SCH (08:27)
[2019-03-10] MEDS: Pantoprazole TAB * 40 MG TAB PO SCH (08:27)
[2019-03-10] MEDS: Lisinopril TAB* 10 MG PO SCH (08:27)
[2019-03-10] MEDS: Metoprolol Succinate XL TAB* 100 MG PO SCH ×2 (08:27→20:52)
--- NOTE | 2019-03-10 08:59 | PN ---
Subjective Date of Service: 03/10/19 - anterior stemi, ICM Interval History: No events last night, Patient states she noticed concentrated urine yesterday evening. She was fitted for lifevest yesterday and has been wearing it. I informed her that while she is on telemetry she does not need to wear lifevest. She adds that this morning she had (1) episode of diarrhea liquis in nature with hematuria. She denies dysuria but states she does have mid lower back pain. She contributed back pain to not sleeping well. No c/o chest pain, dizziness, palpitations or sob Medications Active Medications: Acetaminophen (Tylenol Tab*) 650 mg PO Q4H PRN PRN Reason: HEADACHE/PAIN Last Admin: 03/06/19 19:58 Dose: 650 mg Aspirin (Aspirin 81 Mg Chew Tab*) 81 mg PO DAILY [facility] Last Admin: 03/10/19 08:26 Dose: 81 mg Atorvastatin Calcium (Lipitor*) 80 mg PO 1700 [facility] Last Admin: 03/09/19 17:24 Dose: 80 mg Lisinopril (Prinivil Tab*) 10 mg PO DAILY [facility] Last Admin: 03/10/19 08:27 Dose: 10 mg Metoprolol Succinate (Toprol Xl Tab*) 100 mg PO BID [facility] Last Admin: 03/10/19 08:27 Dose: 100 mg Nitroglycerin (Nitroglycerin Tab 0.4 Mg*) 0.4 mg SL Q5M PRN PRN Reason: ANGINA Last Admin: 03/07/19 00:05 Dose: 0.4 mg Pantoprazole Sodium (Protonix Tab*) 40 mg PO DAILY [facility] Last Admin: 03/10/19 08:27 Dose: 40 mg Spironolactone (Aldactone Tab*) 25 mg PO DAILY [facility] Last Admin: 03/10/19 08:26 Dose: 25 mg Ticagrelor (Brilinta*) 90 mg PO BID [facility] Last Admin: 03/10/19 08:26 Dose: 90 mg Venlafaxine HCl (Effexor Xr Cap*) 37.5 mg PO DAILY [facility] Last Admin: 03/10/19 08:27 Dose: 37.5 mg Objective Vital Signs: Temp Pulse Resp BP Pulse Ox 98 F 98 16 101/63 98 03/10/19 07:20 03/10/19 07:20 03/10/19 07:20 03/10/19 07:20 03/10/19 07:20 Oxygen Devices in Use Now: None Appearance: well nourished, A+O x3, NAD Ears/Nose/Mouth/Throat: NL Teeth, Lips, Gums, Mucous Membranes Moist Neck: NL Appearance and Movements; NL JVP Respiratory: Symmetrical Chest Expansion and Respiratory Effort, Clear to Auscultation Cardiovascular: NL Sounds; No Murmurs; No JVD, RRR, No Edema Extremities: No Edema Neurological: Alert and Oriented x 3 Lines/Tubes/Other Access: Clean, Dry and Intact Peripheral IV Laboratory Results: 03/06/19 11:22 03/10/19 05:46 INR (Anticoag Therapy) 0.90 (0.82-1.09) 03/06/19 11:22 APTT 31.4 seconds (26.0-38.0) 03/06/19 11:22 Total Bilirubin 0.50 mg/dL (0.2-1.0) 03/06/19 11:22 AST 18 U/L (13-39) 03/06/19 11:22 ALT 15 U/L (7-52) 03/06/19 11:22 Alkaline Phosphatase 48 U/L (34-104) 03/06/19 11:22 CK-MB (CK-2) 242.2 ng/mL (0.6-6.3) H 03/07/19 02:00 B-Natriuretic Peptide 137 pg/mL (<=100) H 03/06/19 11:22 Total Protein 7.2 g/dL (6.4-8.9) 03/06/19 11:22 Albumin 4.8 g/dL (3.2-5.2) 03/06/19 11:22 Globulin 2.4 g/dL (2-4) 03/06/19 11:22 Albumin/Globulin Ratio 2.0 (1-3) 03/06/19 11:22 Triglycerides 142 mg/dL 03/06/19 11:22 Cholesterol 225 mg/dL 03/06/19 11:22 LDL Cholesterol 125 mg/dL 03/06/19 11:22 HDL Cholesterol 71.4 mg/dL 03/06/19 11:22 03/06/19 03/06/19 03/06/19 11:22 15:01 20:15 Troponin I 0.07 H* 21.66 H* 41.93 H* 03/07/19 03/07/19 03/09/19 02:00 05:27 11:21 Troponin I 47.78 H* 44.89 H* 10.88 H* Laboratory Results - last 24 hr 03/09/19 03/10/19 11:21 05:46 Sodium 141 Potassium 4.1 Chloride 106 Carbon Dioxide 28 Anion Gap 7 BUN 15 Creatinine 0.78 Est GFR ( Amer) 89.1 Est GFR (Non-Af Amer) 73.7 BUN/Creatinine Ratio 19.2 Glucose 114 H Calcium 9.1 Troponin I 10.88 H* Diagnostic Imaging: Limited echo today per verbal report per Dr. Horner LVEF < 35% [facility] 03/08/2019 please refer to dictated report in EHR EKG Data: 03/09/2019; Sinus Rhythm rate 96, anterolater ST elevation in V 1-4. 1mm inferior ST depression. + anterior Q waves. 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 LVEF 30-35%. Patient was fitted for lifevest yesterday. Troponin peaked at 47 on 03/07/2019. She is on ASA 81/day, Brilinta 90mg Po BID, toprol 100mg Po BID, and Lipitor 80mg Po QHS. given presentation was STEMI she will need uninterrupted DAPT for 12 months. She should go home with free 30 day supply of Brilinta prior to leaving 4 S. She has a follow up appointment on 03/19/2019 at 2:45pm with Lynnette Angulo NP. She should not drive for 7 days. She should not lift more than 5-10 lbs until further directed by cardiology in follow up. #2 Ischemic Cardiomyopathy with severe LV dysfunction; Patient fitted for lifevest. LVEF on limited echo 03/09/2019 30-35%. Compensated on exam. On Toprol 100mg Po BID, Lisinopril 10mg/day, Aldactone 25mg/day. #3 c/o Mid lower back pain with reported hematuria; Will order clean cath UA with reflux to culture, update CBC. She has been up and ambulating thus will D/ C Sub Q Lovenox. Recommend monitoring and not discharging home yet. #4 h/o HLD; Now on high intensity statin therapy. will need repeat FLP/LFTs in 6 -8 weeks. #5 Disposition pending course. Zoll to come today to do lifevest teaching. wait for UA, CBC. Will follow. Will d/w Dr. Horner. Attending: Jordyn Horner
[2019-03-10 09:10] LABS: ABS Basophils 0.1 10^3/ul (0-0.2); ABS Eosinophils 0.2 10^3/ul (0-0.6); ABS Lymphocytes 1.7 10^3/ul (1.0-4.8); ABS Monocytes 0.7 10^3/ul (0-0.8); ABS Neutrophils 6.2 10^3/ul (1.5-7.7); Eosinophil % 2.1 %; Hematocrit 37 % (35-47); Hemoglobin 12.6 g/dL (12.0-16.0); Mean Corpuscular HGB Conc 34 g/dL (31-36); Mean Corpuscular Hemoglobin 30 pg (27-31); Mean Corpuscular Volume 89 fL (80-97); Mean Platelet Volume 9.4 fL (7.4-10.4); Nucleated Red Blood Cells % 0.3; Platelet Count 180 10^3/uL (150-450); Red Blood Count 4.16 10^6 /uL (3.70-4.87); Red Cell Distribution Width 13 % (10-15); White Blood Count 8.8 10^3/uL (3.5-10.8)
[2019-03-10 10:02] LABS: Urine Appearance Cloudy; Urine Bacteria 2+ (Absent); Urine Bilirubin Negative (Negative); Urine Blood 2+ (Negative); Urine Color Yellow; Urine Glucose Negative (Negative); Urine Ketones Negative (Negative); Urine Nitrite Negative (Negative); Urine Protein Negative (Negative); Urine Red Blood Cell 1+(3-5/hpf) (Absent); Urine Specific Gravity 1.005 (1.010-1.030); Urine Squamous Epithelial Cell Present (Absent); Urine Urobilinogen Negative (Negative); Urine White Blood Cell 3+(>20/hpf) (Absent)
--- NOTE | 2019-03-10 13:22 | DS ---
ADDENDUM NOW INCLUDED ON THIS REPORT CC: Dr. Hernesto Little; Dr. Edin Newell * DISCHARGE SUMMARY: DATE OF ADMISSION: DATE OF DISCHARGE: ATTENDING PHYSICIAN: Dr. Horner, interventional cardiology.* (DICTATED BY LYNNETTE ANGULO NP) PRIMARY FRONT OFFICE MEDICAL ASSISTANT: Dr. Hernesto Little. PRIMARY CARE PHYSICIAN: Dr. Edin Newell. ADMITTING DIAGNOSES: 1. Acute anterior ST-elevation myocardial infarction. 2. History of hypertension. 3. History of hyperlipidemia. 4. Prediabetes. 5. Remote history of colitis in the 20s. DISCHARGE DIAGNOSES: 1. Anterior ST-elevation myocardial infarction, status post successful 2.75 x 16 Synergy drug-eluting stent, with proximal overlapping 2.5 x 8 mm Synergy drug - eluting stent with known residual small first septal and small side branch of first diagonal, disease not amenable to PCI, treated medically. The patient is on aspirin, Brilinta, metoprolol therapy. Lipitor has temporarily been discontinued due to profound diarrhea after initiation. We will reevaluate reinitiating Lipitor on an outpatient basis, but it will likely be a moderate dose instead of high- intensity dose. 2. Ischemic cardiomyopathy, LVEF per limited echocardiogram on 03/09/[address] Horner was less than 35%. [facility] She is on metoprolol 100 mg p.o. b.i.d., lisinopril 10 mg a day, Aldactone 25 mg a day. Renal function is stable. She will need repeat BMP next week prior to followup appointment. She is compensated on physical examination. 3. History of hypertension. Blood pressure is currently controlled on current medical therapy. 4. History of hyperlipidemia. LDL this admission was 125. Unfortunately, the patient developed profound diarrhea after initiation of high-intensity statin therapy; thus, Lipitor was discontinued. We will follow up reinitiating statin therapy next week when she follows up in our practice. 5. Complaints of diarrhea; C. diff test is currently pending. We will reevaluate prior to discharge. 6. Questionable hematuria. Urinalysis obtained demonstrates 2+ blood in the urine. The patient has no CVAT on exam. Urinalysis with reflex to culture, there was 2+ urine bacteria on UA with nitrite negative. We will follow up on prior to discharge. She may need to follow up with urology on an outpatient basis. PROCEDURES PERFORMED: The patient had a cardiac catheterization performed by Dr. Horner on 03/08/[address]-segment elevation myocardial infarction. FINDINGS: 1. Left main; normal with minimal ostial irregularity. 2. LAD; moderate in size with extensive distribution, has a thrombus containing proximal 95 plus percent stenosis, distal EDIN flow 1. 3. Left circumflex; large, codominant with moderate marginal, small ramus, 2 moderate posterolaterals, and ends with a small circumflex PDA. Circumflex has no significant stenosis. 4. Right coronary artery; relatively small, codominant with proximal 30% stenosis, supplies [id number] PDA. INTERVENTION PERFORMED: The patient underwent successful predilation with 2.5 x 12 balloon for 8 seconds. The territory was then stented with 2.75 x 16 mm Synergy drug-eluting stent. Due to persisting ostial 75% to 80% LAD stenosis, the patient underwent 2.5 x 8 mm Synergy drug-eluting stent in overlapping fashion to proximal LAD. The small septal mortician investigator which likely had thrombus and slow flow was probed with the wire before the second stent without any change. It was recommended to treat small first septal and small side branch of the first diagonal artery medically due to not being amenable to PCI. COMPLICATIONS: None. COURSE OF HOSPITAL STAY: This is a pleasant 68-year-old female patient who follows with Dr. Hernesto Little of our practice due to a notable history of hypertension and hyperlipidemia. She states that on 03/02/19 she started to notice exertional chest discomfort radiating to her neck that would resolve when she would rest; however, suddenly on 03/06/19 while gardening, she developed anterior chest pain, described as burning like in nature radiating into her upper back and neck. She states pain was persisting and intense; thus, she elected to be evaluated at [facility]. While being evaluated in the emergency department, ECG was obtained, which revealed anterior ST-segment elevation; thus, the patient was seen urgently by Dr. Horner on 03/06/19 and was admitted to the hospital for acute anteroseptal ST-segment elevation myocardial infarction. The patient received loading dose of Brilinta, heparin 4000 units IV and was started on IV nitroglycerin and aspirin 324 mg. She underwent emergent catheterization which resulted in drug-eluting stent placement x2 in overlapping fashion to proximal LAD. Troponin peaked at 47.7 on 03/07/19. Echocardiogram was updated, which revealed severe LV dysfunction, LVEF 30% to 35%, akinesis of the apical anterior myocardium, moderate hypokinesis of the mid anterior; mid anteroseptal and apical myocardium, and mild hypokinesis involving the apical septal and apicolateral myocardium. Trace mitral regurgitation per report, possibility of chordal eruption could not be excluded. No aortic stenosis. Aortic root 3.2 cm. The patient was started on heart failure guideline driven therapy. LifeVest was ordered. ZANE saw the patient during this hospitalization, fitted and educated the patient on importance of LifeVest. She is agreeable to wearing prior to discharge. She has been compensated on physical examination. Her blood pressure has been ranging 97 to 102, systolic, although she is not symptomatic. She has had no recurrent complaints of chest pain since she presented to the emergency department. Norvasc was discontinued. The patient was placed on metoprolol 100 mg p.o. b.i.d., lisinopril 10 mg a day, Aldactone 25 mg a day. Aspirin has been continued in addition to Brilinta therapy. She was initially prescribed Lipitor 80 mg p.o. q.h.s.; however, today 03/10/19, she started to develop profound diarrhea. She has had 6 liquid bowel movements today. C. diff test was ordered, which is currently pending. She also reported an episode of hematuria, although her urinalysis I was told was clear in nature and is still pending. She reports a remote history of colitis in her 20s with no recurrence. CBC is unremarkable. Depending upon course of illness today and if diarrhea improves, she may be discharged home; however, she will need to follow up with urology due to possible hematuria episode in the setting of newly prescribed dual antiplatelet therapy. Lovenox has been discontinued due to frequent ambulation. Further recommendations to follow pending C. diff test and urinalysis with reflex to culture; however, she denies dysuria. She has no CVAT on exam. DISCHARGE DIET: Low-cholesterol, low-fat. DRIVING RESTRICTIONS: No driving for 7 days. LIFTING RESTRICTIONS: No lifting more than 5 to 10 pounds or exercising until further directed in followup with cardiology. DISCHARGE HOME MEDICATIONS: Include: 1. Aspirin 81 mg a day. 2. Brilinta 90 mg p.o. b.i.d. 3. Metoprolol 100 mg a day. 4. Aldactone 25 mg a day. 5. Lisinopril 10 mg a day. 6. Protonix 40 mg a day. 7. Venlafaxine 37.5 mg a day. Please note that the patient is not going to be discharged home on high- intensity statin therapy or statin therapy due to initiation of profound diarrhea. We will reevaluate and follow up next week. LABS TO BE OBTAINED: The patient will need a basic metabolic panel next week due to initiation of Aldactone and lisinopril therapy to evaluate potassium and renal function. FOLLOWUP APPOINTMENTS: The patient is to follow up with Dr. Newell, PCP, in 7 to 10 days. She is to follow up with myself, Lynnette Angulo NP, on 03/19/19 at 2:45. Please note the patient was given free 30-day supply of Brilinta prior to discharge. Pending no complications and course of symptomatology today, she may go home later today. Dr. Horner agrees with the above assessment and plan. LYNNETTE ANGULO NP [id number]/[facility] #: [id number] DISCHARGE SUMMARY: ADDENDUM: ATTENDING PHYSICIAN: Jordyn Horner MD.* (DICTATED BY LYNNETTE ANGULO NP) DATE OF ADMISSION: 03/06/19 TENTATIVE DATE OF DISCHARGE: Pending no complications - 03/11/19 HOSPITAL COURSE: The patient had continued frequent bowel movements on plus she stayed an additional night. She states her bowel movements have improved although she has had 5 bowel movements today. Her C. diff testing was negative. Urine culture still pending. There has been no recurrent episodes of hematuria. She denies flank pain, no CVAT on exam. Vital signs are stable; systolic blood pressure remains 90 to 100 systolic. The patient is not symptomatic and has been up and ambulating. There had been no events on telemetry. The patient is stable to be discharged home. She was given a one time dose of Imodium 4 mg a day and was instructed to take 2 mg p.o. daily as needed for diarrhea upon discharge. She is to have a repeat basic metabolic panel next week. A prescription was sent to [facility]. She is to follow up with myself on 03/19/19 as previously instructed and she is to follow up with her PCP in 7 to 10 days as previously instructed. The patient is aware to seek medical evaluation if she has recurrent episodes of hematuria, if she develops fever, chills, changes in her urinary pattern such as dysuria, decreased urination, or any concerning symptoms. Her radial access site is intact, no evidence of hematoma. Strong pulse on physical examination today. She is compensated. Dr. Jordyn Horner personally saw and examined the patient and agrees to the above plan. LYNNETTE ANGULO NP [id number]/[facility] #: [id number] - 03/11/19 1051 ANA
[2019-03-10] MEDS: Acetaminophen TAB* 325 MG PO PRN (20:56)
--- NOTE | 2019-03-11 08:59 | PN ---
<KevLynnette - Last Filed: 03/11/19 08:54> Subjective Date of Service: 03/11/19 - Anterolateral STEMI, ICM Interval History: No events last night, Patient had low blood pressure at 0300 per nurse but was not symptomatic. No c/o chest pain, sob, dizziness. Does report feeling fatigue but contributes this to her frequent loose bowel movements yesterday which has improved but not resolved. No c.o hematuria since yesterday morning,no melena or hematochezia. She desires to go home. She is weeping today asking what activities she is able to do once she is discharge. Medications Active Medications: Acetaminophen (Tylenol Tab*) 650 mg PO Q4H PRN PRN Reason: HEADACHE/PAIN Last Admin: 03/10/19 20:56 Dose: 650 mg Aspirin (Aspirin 81 Mg Chew Tab*) 81 mg PO DAILY [facility] Last Admin: 03/10/19 08:26 Dose: 81 mg Lisinopril (Prinivil Tab*) 10 mg PO DAILY [facility] Last Admin: 03/10/19 08:27 Dose: 10 mg Metoprolol Succinate (Toprol Xl Tab*) 100 mg PO BID [facility] Last Admin: 03/10/19 20:52 Dose: 100 mg Nitroglycerin (Nitroglycerin Tab 0.4 Mg*) 0.4 mg SL Q5M PRN PRN Reason: ANGINA Last Admin: 03/07/19 00:05 Dose: 0.4 mg Pantoprazole Sodium (Protonix Tab*) 40 mg PO DAILY [facility] Last Admin: 03/10/19 08:27 Dose: 40 mg Spironolactone (Aldactone Tab*) 25 mg PO DAILY [facility] Last Admin: 03/10/19 08:26 Dose: 25 mg Ticagrelor (Brilinta*) 90 mg PO BID [facility] Last Admin: 03/10/19 20:52 Dose: 90 mg Venlafaxine HCl (Effexor Xr Cap*) 37.5 mg PO DAILY [facility] Last Admin: 03/10/19 08:27 Dose: 37.5 mg Objective Vital Signs: Temp Pulse Resp BP Pulse Ox 97.3 F 88 20 97/68 99 03/11/19 07:22 03/11/19 07:22 03/11/19 07:24 03/11/19 07:22 03/11/19 07:22 Oxygen Devices in Use Now: None Appearance: well nourished, A+O x3, NAD Ears/Nose/Mouth/Throat: NL Teeth, Lips, Gums, Mucous Membranes Moist Neck: NL Appearance and Movements; NL JVP Respiratory: Symmetrical Chest Expansion and Respiratory Effort, Clear to Auscultation Cardiovascular: NL Sounds; No Murmurs; No JVD, RRR, No Edema Extremities: No Edema Neurological: Alert and Oriented x 3 Lines/Tubes/Other Access: Clean, Dry and Intact Peripheral IV Laboratory Results: 03/10/19 05:46 03/10/19 05:46 INR (Anticoag Therapy) 0.90 (0.82-1.09) 03/06/19 11:22 APTT 31.4 seconds (26.0-38.0) 03/06/19 11:22 Total Bilirubin 0.50 mg/dL (0.2-1.0) 03/06/19 11:22 AST 18 U/L (13-39) 03/06/19 11:22 ALT 15 U/L (7-52) 03/06/19 11:22 Alkaline Phosphatase 48 U/L (34-104) 03/06/19 11:22 CK-MB (CK-2) 242.2 ng/mL (0.6-6.3) H 03/07/19 02:00 B-Natriuretic Peptide 137 pg/mL (<=100) H 03/06/19 11:22 Total Protein 7.2 g/dL (6.4-8.9) 03/06/19 11:22 Albumin 4.8 g/dL (3.2-5.2) 03/06/19 11:22 Globulin 2.4 g/dL (2-4) 03/06/19 11:22 Albumin/Globulin Ratio 2.0 (1-3) 03/06/19 11:22 Triglycerides 142 mg/dL 03/06/19 11:22 Cholesterol 225 mg/dL 03/06/19 11:22 LDL Cholesterol 125 mg/dL 03/06/19 11:22 HDL Cholesterol 71.4 mg/dL 03/06/19 11:22 03/06/19 03/06/19 03/06/19 11:22 15:01 20:15 Troponin I 0.07 H* 21.66 H* 41.93 H* 03/07/19 03/07/19 03/09/19 02:00 05:27 11:21 Troponin I 47.78 H* 44.89 H* 10.88 H* Laboratory Results - last 24 hr 03/10/19 03/10/19 05:46 09:45 WBC 8.8 RBC 4.16 Hgb 12.6 Hct 37 MCV 89 MCH 30 MCHC 34 RDW 13 Plt Count 180 MPV 9.4 Neut % (Auto) 70.4 Lymph % (Auto) 19.0 [place] % (Auto) 7.8 Eos % (Auto) 2.1 Baso % (Auto) 0.7 Absolute Neuts (auto) 6.2 Absolute Lymphs (auto) 1.7 Absolute Monos (auto) 0.7 Absolute Eos (auto) 0.2 Absolute Basos (auto) 0.1 Absolute Nucleated RBC 0.0 Nucleated RBC % 0.3 Urine Color Yellow Urine Appearance Cloudy Urine pH 6.0 Ur Specific [place] 1.005 L Urine Protein Negative Urine Ketones Negative Urine Blood 2+ A Urine Nitrate Negative Urine Bilirubin Negative Urine Urobilinogen Negative Ur Leukocyte Esterase 2+ A Urine WBC (Auto) 3+(>20/hpf) A Urine RBC (Auto) 1+(3-5/hpf) A Ur Squamous Epith Cells Present A Urine Bacteria 2+ A Urine Glucose Negative Diagnostic Imaging: Limited echo today per verbal report per Dr. Horner LVEF < 35% [facility] 03/08/2019 please refer to dictated report in EHR EKG Data: 03/09/2019; Sinus Rhythm rate 96, anterolater ST elevation in V 1-4. 1mm inferior ST depression. + anterior Q waves. Telemetry; Sinus rate 90's with PACs. Assessment/Plan #1 Anterolateral STEMI 03/07/2019 s/p DESx2 to LAD with residual septal galley stripper lesion being medically treated. LVEF 30-35%. Patient was fitted for lifevest. Troponin peaked at 47 on 03/07/2019. She is on ASA 81/day, Brilinta 90mg Po BID, toprol 100mg Po BID. Lip[itor on hold due to diarrhea will address re starting next Friday in follow up. given presentation was STEMI she will need uninterrupted DAPT for 12 months. She should go home with free 30 day supply of Brilinta prior to leaving 4 S. She has a follow up appointment on 03/19 at 2:45pm with Lynnette Angulo NP. She should not drive for 7 days. She should not lift more than 5-10 lbs until further directed by cardiology in follow up. #2 Ischemic Cardiomyopathy with severe LV dysfunction; Patient fitted for lifevest. LVEF on limited echo 03/09/2019 30-35%. Compensated on exam. On Toprol 100mg Po BID, Lisinopril 10mg/day, Aldactone 25mg/day. Unable to increase doses due to SBP. #3 c/o hematuria 03/09/2019; patient had one episode of hematuria. UA 2+ blood, nitrate negative. Urine culture is pending. No recurrent episodes. No CVAT. She will need to f/u with urology. I told her I would place referral when she sees me next week. She is aware to seek medical evaluation after discharge if hematuria re occurs, if she develops fever, back pain or dysuria/ urinary changes. Diarrhea improving off Lipitor Cdiff test negative. #4 h/o HLD; statin therapy on hold will re address in follow up. #5 Disposition pending course.Will D/C patient home. Will d/c Dr. Horner Attending: Jordyn Horner <Jordyn Horner - Last Filed: 03/11/19 10:37> Medications Active Medications: Acetaminophen (Tylenol Tab*) 650 mg PO Q4H PRN PRN Reason: HEADACHE/PAIN Last Admin: 03/10/19 20:56 Dose: 650 mg Aspirin (Aspirin 81 Mg Chew Tab*) 81 mg PO DAILY [facility] Last Admin: 03/11/19 09:34 Dose: 81 mg Lisinopril (Prinivil Tab*) 10 mg PO DAILY [facility] Last Admin: 03/11/19 09:34 Dose: 10 mg Metoprolol Succinate (Toprol Xl Tab*) 100 mg PO BID [facility] Last Admin: 03/11/19 09:34 Dose: 100 mg Nitroglycerin (Nitroglycerin Tab 0.4 Mg*) 0.4 mg SL Q5M PRN PRN Reason: ANGINA Last Admin: 03/07/19 00:05 Dose: 0.4 mg Pantoprazole Sodium (Protonix Tab*) 40 mg PO DAILY [facility] Last Admin: 03/11/19 09:34 Dose: 40 mg Spironolactone (Aldactone Tab*) 25 mg PO DAILY [facility] Last Admin: 03/11/19 09:34 Dose: 25 mg Ticagrelor (Brilinta*) 90 mg PO BID [facility] Last Admin: 03/11/19 09:34 Dose: 90 mg Venlafaxine HCl (Effexor Xr Cap*) 37.5 mg PO DAILY [facility] Last Admin: 03/11/19 09:34 Dose: 37.5 mg Objective Vital Signs: Temp Pulse Resp BP Pulse Ox 97.3 F 88 20 98/68 99 03/11/19 07:22 03/11/19 07:22 03/11/19 07:24 03/11/19 09:30 03/11/19 07:22 Laboratory Results: 03/10/19 05:46 03/10/19 05:46 INR (Anticoag Therapy) 0.90 (0.82-1.09) 03/06/19 11:22 APTT 31.4 seconds (26.0-38.0) 03/06/19 11:22 Total Bilirubin 0.50 mg/dL (0.2-1.0) 03/06/19 11:22 AST 18 U/L (13-39) 03/06/19 11:22 ALT 15 U/L (7-52) 03/06/19 11:22 Alkaline Phosphatase 48 U/L (34-104) 03/06/19 11:22 CK-MB (CK-2) 242.2 ng/mL (0.6-6.3) H 03/07/19 02:00 B-Natriuretic Peptide 137 pg/mL (<=100) H 03/06/19 11:22 Total Protein 7.2 g/dL (6.4-8.9) 03/06/19 11:22 Albumin 4.8 g/dL (3.2-5.2) 03/06/19 11:22 Globulin 2.4 g/dL (2-4) 03/06/19 11:22 Albumin/Globulin Ratio 2.0 (1-3) 03/06/19 11:22 Triglycerides 142 mg/dL 03/06/19 11:22 Cholesterol 225 mg/dL 03/06/19 11:22 LDL Cholesterol 125 mg/dL 03/06/19 11:22 HDL Cholesterol 71.4 mg/dL 03/06/19 11:22 03/06/19 03/06/19 03/06/19 11:22 15:01 20:15 Troponin I 0.07 H* 21.66 H* 41.93 H* 03/07/19 03/07/19 03/09/19 02:00 05:27 11:21 Troponin I 47.78 H* 44.89 H* 10.88 H* Assessment/Plan Diarrhea less frequent 36 hrs off Lipitor. Feeling better, no SOB, CP. Soft s4. Full review of D/C instructions. Ready for discharge. I 'll check Urine CS tomorrow.
[2019-03-11] MEDS: Venlafaxine EXT RELEASE CAP* 37.5 MG PO SCH (09:34)
[2019-03-11] MEDS: Aspirin 81 mg CHEW TAB* 81 MG TAB.CHEW PO SCH (09:34)
[2019-03-11] MEDS: Metoprolol Succinate XL TAB* 100 MG PO SCH (09:34)
[2019-03-11] MEDS: Pantoprazole TAB * 40 MG TAB PO SCH (09:34)
[2019-03-11] MEDS: Lisinopril TAB* 10 MG PO SCH (09:34)
[2019-03-11] MEDS: Spironolactone TAB* 25 MG PO SCH (09:34)
[2019-03-11] MEDS: Ticagrelor* 90 MG TAB PO SCH (09:34)
[2019-03-11 09:54] VITALS: BP 98/68
[2019-03-11] MEDS ORDERED: Loperamide CAP* 2 MG PO ONE (10:07)
--- NOTE | 2019-03-11 12:29 | DS ---
DISCHARGE SUMMARY: ADDENDUM: ATTENDING PHYSICIAN: Jordyn Horner MD. DATE OF ADMISSION: 03/06/19 TENTATIVE DATE OF DISCHARGE: Pending no complications - 03/11/19 HOSPITAL COURSE: The patient had continued frequent bowel movements on plus she stayed an additional night. She states her bowel movements have improved although she has had 5 bowel movements today. Her C. diff testing was negative. Urine culture still pending. There has been no recurrent episodes of hematuria. She denies flank pain, no CVAT on exam. Vital signs are stable; systolic blood pressure remains 90 to 100 systolic. The patient is not symptomatic and has been up and ambulating. There had been no events on telemetry. The patient is stable to be discharged home. She was given a one time dose of Imodium 4 mg a day and was instructed to take 2 mg p.o. daily as needed for diarrhea upon discharge. She is to have a repeat basic metabolic panel next week. A prescription was sent to [facility]. She is to follow up with myself on 03/19/19 as previously instructed and she is to follow up with her PCP in 7 to 10 days as previously instructed. The patient is aware to seek medical evaluation if she has recurrent episodes of hematuria, if she develops fever, chills, changes in her urinary pattern such as dysuria, decreased urination, or any concerning symptoms. Her radial access site is intact, no evidence of hematoma. Strong pulse on physical examination today. She is compensated. Dr. Jordyn Horner personally saw and examined the patient and agrees to the above plan. MARI VOGEL NP [id number]/[facility] #: [id number] ANA
== END 2019-03-11 11:37 | disposition home or self-care (01) | DRG 247 ==
LOC: ED 11:14 → CHICATH 12:02 → ICU 14:08 → MEDTELE 03-08 10:24
PROVIDERS: ADMIT Internal Medicine Cardiovascular Disease; ATTEND Internal Medicine Cardiovascular Disease
PROC: B2111ZZ Fluoroscopy of Multiple Coronary Arteries using Low Osmolar Contrast (ICD-10-PCS; 2019-03-06)
PROC: B2151ZZ Fluoroscopy of Left Heart using Low Osmolar Contrast (ICD-10-PCS; 2019-03-06)
PROC: 4A023N7 Measurement of Cardiac Sampling and Pressure, Left Heart, Percutaneous Approach (ICD-10-PCS; 2019-03-06)
PROC: 027035Z Dilation of Coronary Artery, One Artery with Two Drug-eluting Intraluminal Devices, Percutaneous Approach (ICD-10-PCS; principal; 2019-03-06 12:00)
DX: I21.09 ST elevation (STEMI) myocardial infarction involving other coronary artery of anterior wall (principal); K52.1 Toxic gastroenteritis and colitis; E78.5 Hyperlipidemia, unspecified; M19.90 Unspecified osteoarthritis, unspecified site; M81.0 Age-related osteoporosis without current pathological fracture; M06.9 Rheumatoid arthritis, unspecified; F32.9 Major depressive disorder, single episode, unspecified; R53.83 Other fatigue; I25.5 Ischemic cardiomyopathy; R31.9 Hematuria, unspecified; M54.5 Low back pain; I50.9 Heart failure, unspecified; R09.02 Hypoxemia; R73.03 Prediabetes; I25.10 Atherosclerotic 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of native coronary artery without angina pectoris; T46.6X5A Adverse effect of antihyperlipidemic and antiarteriosclerotic drugs, initial encounter; Y92.239 Unspecified place in hospital as the place of occurrence of the external cause; I11.0 Hypertensive 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with heart failure; Z88.6 Allergy status to analgesic agent; Z82.49 Family history of ischemic 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and other diseases of the circulatory system; Z72.89 Other problems related to lifestyle; Z90.710 Acquired absence of both cervix and uterus; Z79.82 Long term (current) use of aspirin; Z79.02 Long term (current) use of antithrombotics/antiplatelets
CPT/HCPCS: 36415; 71045; 80048; 80053; 80061; 81003; 81015; 82550; 82553; 83036; 83605; 83721; 83880; 84132; 84484; 85025; 85347; 85610; 85730; 87077; 87086; 87186; 87493; 87641; 93005; 93306; 99156; 99157; 99285; A9270-GY; C1725; C1769; C1876; C1887; C9606-LD; J1644; J1650; J1940; J2250; J2270; J2405; J3010; J3480; J3490

== ENCOUNTER 2019-08-06 21:39 | Emergency (ER) | payer MEDICARE ==
--- OUTSIDE RECORDS SUMMARY | 2019-08-06 21:56 | XMS REPORT | Continuity of Care Document ---
:1950 External Reference #:[id number] Author Name Lynnette Angulo NP (transmitted by agent of provider Tracy Hatfield) Address [address] [address] Care Team Providers Name Role Phone Edin Newell MD - Family Care Team Information Pressure Dispatcher [phone] Medicine Problems Active Problems Provider Date Osteoporosis Hernesto Little M.D. Onset: 06/25/2018 Osteoarthritis Hernesto Little M.D. Onset: 06/25/2018 Note: of cervical spine Gastroesophageal reflux disease Hernesto Little M.D. Onset: 06/25/2018 Note: silent Hypertensive disorder Hernesto Little M.D. Onset: 06/25/2018 Social History Type Date Description Comments Sex Unknown ETOH Use Drinks 4 Alcoholic Beverages Per Week Tobacco Use Start: Unknown Patient has never smoked Recreational Drug Use Denies Drug Use Smoking Status Reviewed: 06/10/19 Patient has never smoked Exercise Type/Frequency Exercises regularly on average 3 times a week- Reduced since (03/19/19) Allergies, Adverse Reactions, Alerts Active Allergies Reaction Severity Comments Date Ibuprofen 07/01/2014 Medications Active Medications SIG Qnty Indications Ordering Date Provider Metoprolol Succinate take 2 tablets by 120tabs Lynnette Angulo, 06/10/2019 ER mouth twice a day [employer]ONT [employer] DEVELOPER DESIGNER 25mg Tablets ER 24HR Lisinopril 2 1/2 tabs by mouth 60tabs I25.5 Lynnette Angulo, 04/27/2019 5mg every day before [employer] END DEVELOPER DESIGNER Tablets bed Atorvastatin Calcium 1 tab by mouth 30tabs E78.5 Lynnette Angulo, 03/19/2019 every day at FRONT END DEVELOPER DESIGNER 40mg Tablets bedtime Venlafaxine HCL ER alternating 1 tab Ruddy, by mouth with 2 Marycarmen FORGER HELPER 37.5mg Caps ER 24HR tabs by mouth daily Fosamax take one tablet by Unknown 70mg Tablets mouth every week (Friday) Valtrex take 1 tablet twice Unknown 500mg Tablets daily for 5 days as needed Estrace 1 applicator full Unknown 0.1mg/GM vaginally weekly as Cream needed Aspirin Adult Low 1 by mouth every Unknown Dose day 81mg Tablets DR Lo 1 by mouth twice a Unknown 90mg Tablets day Vitamin D 1 cap po daily Unknown 2000Unit Capsules Multivitamin Adult 1 by mouth every Unknown day Tablets Omeprazole 1 by mouth every Unknown 40mg day Capsules Melatonin 1 cap at bedtime as Unknown 5mg needed Capsules History Medications Lisinopril 1 by mouth q am, Lynnette Angulo NP 04/26/2019 - 2.5mg 2 po q pm 04/27/2019 Tablets Lisinopril 1 by mouth q am, 90tabs Hernesto Little, 03/16/2019 - 2.5mg 2 tabs q pm M.D. 04/26/2019 Tablets Immunizations Description No Information Available Vital Signs Date Vital Result Comment 06/10/2019 2:56pm Height 62 inches 5'2" Weight 130.12 lb with shoes Heart Rate 70 /min radial, regular BP Systolic Sitting 104 mmHg Ra, reg cuff BP Diastolic Sitting 62 mmHg Ra, reg cuff BP Systolic Standing 100 mmHg Ra, reg cuff BP Diastolic Standing 70 mmHg Ra, reg cuff BMI (Body Mass Index) 23.8 kg/m2 Ejection Fraction 35%-40% echo 04/08/19 05/24/2019 3:03pm Height 62 inches 5'2" Weight 130.50 lb with shoes Heart Rate 88 /min BP Systolic Sitting 108 mmHg Ra< reg BP Diastolic Sitting 68 mmHg Ra< reg BP Systolic Standing 106 mmHg Ra, reg BP Diastolic Standing 68 mmHg Ra, reg BMI (Body Mass Index) 23.9 kg/m2 Ejection Fraction 35%-40% 04/08/19 Results Test Date Facility Test Result H/L Range Note Laboratory test 04/26/2019 [facility] Potassium 3.9 mmol/L Normal 3.5-5.[address] [place] [address] [phone] Basic Metabolic 04/26/2019 [facility] Sodium 140 mmol/L Normal 135-[address] [place] [address] [phone] Chloride 105 mmol/L Normal 101-111 Co2 Carbon Dioxide 28 mmol/L Normal 22-32 Glucose 109 mg/dL High 70-100 Blood Urea Nitrogen 14 mg/dL Normal 6-24 Creatinine 0.77 mg/dL Normal 0.51-0.95 BUN/Creatinine Ratio 18.2 Normal 8-20 Calcium 9.8 mg/dL Normal 8.6-10.3 Egfr Non- 74.8 >60 Egfr 90.5 >60 1 Potassium TNP mmol/L 3.5-5.0 2 Anion Gap 7 mmol/L Normal 2-11 CBC Auto 04/07/2019 [facility] White Blood 6.0 10^3/uL Normal 3.5-10.[address] [place] [address] [phone] Red Blood Count 4.43 10^6/uL Normal 3.70-4.87 Hemoglobin 13.7 g/dL Normal 12.0-16.0 Hematocrit 39 % Normal 35-47 Mean Corpuscular Volume 89 fL Normal 80-97 Mean Corpuscular Hemoglobin 31 pg Normal 27-31 Mean Corpuscular HGB Conc 35 g/dL Normal 31-36 Red Cell Distribution Width 13 % Normal 10-15 Platelet Count 173 10^3/uL Normal 150-450 Mean Platelet Volume 9.3 fL Normal 7.4-10.4 Abs Neutrophils 4.0 10^3/uL Normal 1.5-7.7 Abs Lymphocytes 1.5 10^3/uL Normal 1.0-4.8 Abs Monocytes 0.4 10^3/uL Normal 0-0.8 Abs Eosinophils 0.1 10^3/uL Normal 0-0.6 Abs Basophils 0.1 10^3/uL Normal 0-0.2 Abs Nucleated RBC 0.0 10^3/uL Granulocyte % 65.9 % Lymphocyte % 24.6 % Monocyte % 6.3 % Eosinophil % 2.3 % Basophil % 0.9 % Nucleated Red Blood Cells % 0.0 Lipid Panel - 04/07/2019 [facility] Creatine 47 U/L Normal 10- [address] Kinase(CK) [place] [address] [phone] Comp Metabolic 04/07/2019 [facility] Sodium 140 Normal 135- [address] mmol/[place] [address] [phone] Potassium 4.6 mmol/L Normal 3.5-5.0 Chloride 104 mmol/L Normal 101-111 Co2 Carbon Dioxide 32 mmol/L Normal 22-32 Anion Gap 4 mmol/L Normal 2-11 Glucose 113 mg/dL High 70-100 Blood Urea Nitrogen 20 mg/dL Normal 6-24 Creatinine 0.79 mg/dL Normal 0.51-0.95 BUN/Creatinine Ratio 25.3 High 8-20 Calcium 9.8 mg/dL Normal 8.6-10.3 Total Protein 6.7 g/dL Normal 6.4-8.9 Albumin 4.5 g/dL Normal 3.2-5.2 Globulin 2.2 g/dL Normal 2-4 Albumin/Globulin Ratio 2.0 Normal 1-3 Total Bilirubin 0.60 mg/dL Normal 0.2-1.0 Alkaline Phosphatase 56 U/L Normal 34-104 Alt 16 U/L Normal 7-52 Ast 16 U/L Normal 13-39 Egfr Non- 72.6 >60 Egfr 87.8 >60 4 Lipid Profile 04/07/2019 [facility] Triglycerides 93 mg/dL 5 (Trig/Chol/HDL) [address] [place] [address] [phone] Cholesterol 142 mg/dL 6 HDL Cholesterol 55.9 mg/dL 7 LDL Cholesterol 68 mg/dL 8 Basic Metabolic 03/19/2019 [facility] Sodium 142 mmol/L Normal 135-[address] [place] [address] [phone] Potassium 4.0 mmol/L Normal 3.5-5.0 Chloride 107 mmol/L Normal 101-111 Co2 Carbon Dioxide 29 mmol/L Normal 22-32 Anion Gap 6 mmol/L Normal 2-11 Glucose 121 mg/dL High 70-100 Blood Urea Nitrogen 25 mg/dL High 6-24 Creatinine 0.91 mg/dL Normal 0.51-0.95 BUN/Creatinine Ratio 27.5 High 8-20 Calcium 10.0 mg/dL Normal 8.6-10.3 Egfr Non- 61.7 >60 Egfr 74.6 >60 9 Laboratory test 03/06/2019 [facility] Poc Activated 436 seconds [address] [place] [address] [phone] Laboratory test 03/06/2019 [facility] Poc Activated 229 seconds [address] [employer], [place] [id number] [phone] Laboratory test 03/06/2019 [facility] Poc Activated 266 seconds [address] [employer], [place] [id number] [phone] 1 Because ethnic data is not always readily available, this report includes an eGFR for both -Americans and non- Americans. The National Kidney Disease Education Program (NKDEP) does not endorse the use of the MDRD equation for patients that are not between the ages of 18 and 70, are , have extremes of body size, muscle mass, or nutritional status, or are non- or non-. According to the National Kidney Foundation, irrespective of diagnosis, the stage of the disease is based on the level of kidney function: Stage Description GFR(mL/min/1.73 m(2)) 1 Kidney damage with normal or decreased GFR 90 2 Kidney damage with mild decrease in GFR 60-89 3 Moderate decrease in GFR 30-59 4 Severe decrease in GFR 15-29 5 Kidney failure <15 (or dialysis) 2 Specimen Hemolyzed. Result may not be valid. Unable to report test result due to hemolysis. 3 FASTING in 2 weeks cc pmd Copy Result to: EDIN NEWELL ([id number]) 4 Because ethnic data is not always readily available, this report includes an eGFR for both -Americans and non- Americans. The National Kidney Disease Education Program (NKDEP) does not endorse the use of the MDRD equation for patients that are not between the ages of 18 and 70, are , have extremes of body size, muscle mass, or nutritional status, or are non- or non-. According to the National Kidney Foundation, irrespective of diagnosis, the stage of the disease is based on the level of kidney function: Stage Description GFR(mL/min/1.73 m(2)) 1 Kidney damage with normal or decreased GFR 90 2 Kidney damage with mild decrease in GFR 60-89 3 Moderate decrease in GFR 30-59 4 Severe decrease in GFR 15-29 5 Kidney failure <15 (or dialysis) 5 Desirable: <150 Borderline High: 150-199 High: 200-499 Very High: >500 6 Desirable: <200 Borderline High: 200-239 High: >239 7 Low: <40 Desirable: 40-60 High: >60 8 Desirable: <100 Near Optimal: 100-129 Borderline High: 130-159 High: 160-189 Very High: >189 9 Because ethnic data is not always readily available, this report includes an eGFR for both -Americans and non- Americans. The National Kidney Disease Education Program (NKDEP) does not endorse the use of the MDRD equation for patients that are not between the ages of 18 and 70, are , have extremes of body size, muscle mass, or nutritional status, or are non- or non-. According to the National Kidney Foundation, irrespective of diagnosis, the stage of the disease is based on the level of kidney function: Stage Description GFR(mL/min/1.73 m(2)) 1 Kidney damage with normal or decreased GFR 90 2 Kidney damage with mild decrease in GFR 60-89 3 Moderate decrease in GFR 30-59 4 Severe decrease in GFR 15-29 5 Kidney failure <15 (or dialysis) 10 Facility Environmental Technician: [id number] Reference Range: 74-125 seconds 11 Facility Environmental Technician: [id number] Reference Range: 74-125 seconds 12 Facility Environmental Technician: [id number] Reference Range: 74-125 seconds Procedures Date Code Description Status 04/08/2019 41632 ECHO Transthoracic, Real-Time 2D With Doppler And Color Completed Flow 04/08/2019 33561 ECHO Transthoracic, Real-Time 2D With Doppler And Color Completed Flow 03/25/2019 44352 EKG Tracing & Interpretation Completed 03/09/2019 46207 EKG, Interpretation Only Completed 03/09/2019 97385 ECHO Transthorasic Realtime 2D W Doppler & Color Flow Hosp Completed 03/08/2019 64083 EKG, Interpretation Only Completed 03/07/2019 61956 EKG, Interpretation Only Completed 03/06/2019 61556 EKG, Interpretation Only Completed 03/06/2019 10235 Left Heart Cath. Incl S/I Coronaries, Angio S/I V Gram If Completed Done 03/06/2019 67775 Revascularization Acute Total/Subtotal Occlusion Completed Medical Devices Description No Information Available Encounters Type Date Location Provider Dx Diagnosis Office Visit 05/24/2019 3:00p [facility] Lynnette Angulo, FRONT END DEVELOPER DESIGNER R00.2 Palpitations I25.5 Ischemic cardiomyopathy E78.5 Hyperlipidemia, unspecified I25.10 [place] 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 Office [facility] 04[facility]2019 [facility] Thuman, FRONT END DEVELOPER DESIGNER cardiomyopathy E78.5 Hyperlipidemia, unspecified I10 Essential (primary) hypertension I25.10 Athscl 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 Office [facility] E78[facility] Hyperlipidemia, 1:00p Cardiology Kev, FRONT END DEVELOPER DESIGNER unspecified I25.5 Ischemic cardiomyopathy I10 Essential (primary) hypertension I25.10 Athscl 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 Office Visit 03/25/2019 Jeannette Cyr E78.5 Hyperlipidemia, 3:40p Cardiology Dru Little unspecified I25.10 Athscl 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 I25.5 Ischemic cardiomyopathy I10 Essential (primary) hypertension 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 R94.31 Abnormal electrocardiogram [ECG] [EKG] Office Visit 03/19/2019 3:00p [facility] Lynnette Angulo, R31.9 Hematuria, FRONT END DEVELOPER DESIGNER unspecified E78.5 Hyperlipidemia, unspecified I25.10 Athscl 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 I25.5 Ischemic cardiomyopathy Z79.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 Office Visit 03/11/2019 8:58a [facility] Lynnette Angulo, I21.02 Stemi involving Of [employer] [place] [facility] FRONT END DEVELOPER DESIGNER left anterior descending coronary artery I25.10 Athscl 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 Z98.61 Coronary angioplasty status I25.5 Ischemic cardiomyopathy E78.5 Hyperlipidemia, unspecified I10 Essential (primary) hypertension Office Visit 03/11/2019 2:21p [facility] Jordyn Bustos I21.02 Stemi involving Of Car Seat Coverer AT [facility] MD Siri, left anterior FACC, FSCAI descending coronary artery I25.10 Athscl 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 I25.5 Ischemic cardiomyopathy R31.9 Hematuria, unspecified E78.5 Hyperlipidemia, unspecified Z98.61 Coronary angioplasty status Office Visit 03/10/2019 2:20p [facility] Jordyn Bustos I21.02 Stemi involving Of Car Seat Coverer AT [facility] MD Siri, left anterior FACC, FSCAI descending coronary artery I25.10 Athscl 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 Z98.61 Coronary angioplasty status I25.5 Ischemic cardiomyopathy E78.5 Hyperlipidemia, unspecified Office Visit 03/09/2019 2:19p [facility] Jordyn Bustos I21.02 Stemi involving Of Car Seat Coverer AT [facility] MD Siri, left anterior FACC, FSCAI descending coronary artery I25.10 Athscl 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 Z98.61 Coronary angioplasty status I25.5 Ischemic cardiomyopathy E78.5 Hyperlipidemia, unspecified Office Visit 03/08/2019 4:25p [facility] Jordyn Bustos I21.02 Stemi involving Of Car Seat Coverer AT [facility] MD Siri, left anterior FACC, FSCAI descending coronary artery I50.9 Heart failure, unspecified Office Visit 03/07/2019 4:24p [facility] Jordyn Bustos I21.02 Stemi involving Of Car Seat Coverer AT [facility] Horner MD, left anterior FACC, FSCAI descending coronary artery I50.9 Heart failure, unspecified Office Visit 03/06/2019 4:06p [facility] Jordyn Bustos I21.02 Stemi involving Of Car Seat Coverer AT [facility] MD Siri, left anterior FACC, FSCAI descending coronary artery I25.10 Athscl 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 I10 Essential (primary) hypertension E78.5 Hyperlipidemia, unspecified Office Visit 01/28/2019 9:30a [facility] Padma Osorio I10 Essential ( primary) Foster, N.P. hypertension R94.31 Abnormal electrocardiogram [ECG] [EKG] R06.00 Dyspnea, unspecified R00.2 Palpitations R01.1 Cardiac murmur, unspecified Assessments Date Code Description Provider 06/10/2019 I25.5 Ischemic cardiomyopathy Lynnette Angulo, FRONT END DEVELOPER DESIGNER 06/10/2019 E78.5 Hyperlipidemia, unspecified Lynnette Thuman, FRONT END DEVELOPER DESIGNER 06/10/2019 I25.10 Atherosclerotic 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of Lynnette Angulo NP [place] coronary artery with 06/10/2019 M79.18 Myalgia, other site Lynnette Angulo, FRONT END DEVELOPER DESIGNER 05/24/2019 R00.2 Palpitations Lynnette Angulo, FRONT END DEVELOPER DESIGNER 05/24/2019 I25.5 Ischemic cardiomyopathy Lynnette Angulo, FRONT END DEVELOPER DESIGNER 05/24/2019 E78.5 Hyperlipidemia, unspecified Lynnette Thuman, FRONT END DEVELOPER DESIGNER 05/24/2019 I25.10 Atherosclerotic 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of Lynnette Angulo FRONT END DEVELOPER DESIGNER [place] coronary artery with 04/27/2019 I25.5 Ischemic cardiomyopathy Lynnette Angulo, FRONT END DEVELOPER DESIGNER 04/27/2019 E78.5 Hyperlipidemia, unspecified Lynnette Thuman, FRONT END DEVELOPER DESIGNER 04/27/2019 I10 Essential (primary) [facility] END DEVELOPER DESIGNER 04/27/2019 I25.10 Atherosclerotic 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of Lynnette Angulo FRONT END DEVELOPER DESIGNER [place] coronary artery with 04/16/2019 E78.5 Hyperlipidemia, unspecified Lynnette Thuman, FRONT END DEVELOPER DESIGNER 04/16/2019 I25.5 Ischemic cardiomyopathy Lynnette Angulo, FRONT END DEVELOPER DESIGNER 04/16/2019 I10 Essential (primary) hypertension [facility] FR[employer] END DEVELOPER DESIGNER 04/16/2019 I25.10 Atherosclerotic 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of Lynnette Angulo NP [place] coronary artery with 04/08/2019 I25.5 Ischemic cardiomyopathy Hernesto Little M.D. 04/08/2019 I25.5 Ischemic cardiomyopathy [facility] Schedule 03/25/2019 E78.5 Hyperlipidemia, unspecified Hernesto Little M.D. 03/25/2019 I25.10 Atherosclerotic 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of Hernesto Little M.D. [place] coronary artery with 03/25/2019 I25.5 Ischemic cardiomyopathy Hernesto Little M.D. 03/25/2019 I10 Essential (primary) hypertension Hernesto Little M.D. 03/25/[address] elevation (Stemi) myocardial Hernesto Little M.D. infarction involving left an 03/25/2019 R94.31 Abnormal electrocardiogram [ECG] [EKG] Hernesto Little M.D. 03/19/2019 R31.9 Hematuria, unspecified [facility], FRONT END DEVELOPER DESIGNER 03/19/2019 E78.5 Hyperlipidemia, unspecified [facility], FRONT END DEVELOPER DESIGNER 03/19/2019 I25.10 Atherosclerotic 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of Lynntete Angulo FRONT END DEVELOPER DESIGNER [place] coronary artery with 03/19/2019 I25.5 Ischemic cardiomyopathy [facility], FRONT END DEVELOPER DESIGNER 03/19/2019 Z79.899 Other alf (current) drug therapy [facility] FR[employer] END DEVELOPER DESIGNER 03/11/[address] elevation (Stemi) [facility] FRONT END DEVELOPER DESIGNER infarction involving left an 03/11/[address] elevation (Stemi) myocardial Jordyn Horner MD, FACC , infarction involving left an [facility] 03/11/2019 I25.10 Atherosclerotic 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of Lynnette Kev FRONT END DEVELOPER DESIGNER [place] coronary artery with 03/11/2019 I25.10 Atherosclerotic 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of Jordyn Horner MD, FACC, [place] coronary artery with [facility] 03/11/2019 Z98.61 Coronary angioplasty status Lynnette Angulo, FRONT END DEVELOPER DESIGNER 03/11/2019 I25.5 Ischemic cardiomyopathy Jordyn Horner MD, FACC, [facility] 03/11/2019 I25.5 Ischemic cardiomyopathy [facility], FRONT END DEVELOPER DESIGNER 03/11/2019 R31.9 Hematuria, unspecified Jordyn Horner MD, FACC, [facility] 03/11/2019 E78.5 Hyperlipidemia, unspecified [facility], FRONT END DEVELOPER DESIGNER 03/11/2019 E78.5 Hyperlipidemia, unspecified Jordyn Horner MD, FACC, [facility] 03/11/2019 I10 Essential (primary) hypertension [facility], FRONT END DEVELOPER DESIGNER 03/11/2019 Z98.61 Coronary angioplasty status Jordyn Horner MD, FACC, [facility] 03/10/[address] elevation (Stemi) myocardial Jordyn Horner MD, FACC , infarction involving left an [facility] 03/10/2019 I25.10 Atherosclerotic 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of Jordyn Horner MD, FACC, [place] coronary artery with [facility] 03/10/2019 Z98.61 Coronary angioplasty status Jordyn Horner MD, FACC, [facility] 03/10/2019 I25.5 Ischemic cardiomyopathy Jordyn Horner MD, FACC, [facility] 03/10/2019 E78.5 Hyperlipidemia, unspecified Jordyn Horner MD, FACC, [facility] 03/09/2019 R94.31 Abnormal electrocardiogram [ECG] [EKG] Jordyn Horner MD, FACC, [facility] 03/09/[address] elevation (Stemi) myocardial Jordyn Horner MD, FACC , infarction involving left an [facility] 03/09/2019 I25.10 Atherosclerotic 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of Jordyn Horner MD, FACC, [place] coronary artery with [facility] 03/09/2019 Z98.61 Coronary angioplasty status Jordyn Horner MD, FACC, [facility] 03/09/2019 I25.5 Ischemic cardiomyopathy Jordyn Horner MD, FACC, [facility] 03/09/2019 E78.5 Hyperlipidemia, unspecified Jordyn Horner MD, FACC, [facility] 03/09/[address] elevation (Stemi) myocardial Yuri Oropeza M.D. infarction involving left an 03/08/2019 R94.31 Abnormal electrocardiogram [ECG] [EKG] Jordyn Horner MD, FACC, [facility] 03/08/[address] elevation (Stemi) myocardial Jordyn Horner MD, FACC , infarction involving left an [facility] 03/08/2019 I50.9 Heart failure, unspecified Jordyn Horner MD, FACC, [facility] 03/07/2019 R94.31 Abnormal electrocardiogram [ECG] [EKG] Jordyn Horner MD, FACC, [facility] 03/07/[address] elevation (Stemi) myocardial Jordyn Horner MD, FACC , infarction involving left anterior FSCAI descending coronary artery 03/07/2019 I50.9 Heart failure, unspecified Jordyn Horner MD, FACC, [facility] 03/06/2019 R94.31 Abnormal electrocardiogram [ECG] [EKG] Jordyn Horner MD, FACC, [facility] 03/06/[address] elevation (Stemi) myocardial Jordyn Horner MD, FACC , infarction involving left an [facility] 03/06/2019 I25.10 Atherosclerotic 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of Jordyn Horner MD, [facility], [place] coronary artery with [facility] 03/06/2019 I10 Essential (primary) hypertension Jordyn Horner MD, [facility], [facility] 03/06/2019 E78.5 Hyperlipidemia, unspecified Jordyn Horner MD, [facility], [facility] 01/28/2019 I10 Essential (primary) hypertension Padma Schafer, N.P. 01/28/2019 R94.31 Abnormal electrocardiogram [ECG] [EKG] Padma Schafer, N.P. 01/28/2019 R06.00 Dyspnea, unspecified Padma Schafer, N.P. 01/28/2019 R00.2 Palpitations Padma Schafer, N.P. 01/28/2019 R01.1 Cardiac murmur, unspecified Padma Schafer, N.P. Plan of Treatment Future Appointment(s):07/22/2019 1:30 pm - [place] [facility]08/10/2019 3:40 pm - Hernesto Little M.D. at [facility]08/2019 - Lynnette Angulo NPI25.5 Ischemic cardiomyopathyNew Orders: Echocardiogram, Limited Study, Scheduled: 07/22/19Recommendations:Please go home and confirm lisinopril dose and call me.E78.5 Hyperlipidemia, knseblaocfeD36.10 Atherosclerotic 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ithM79.18 Myalgia, other site Functional Status Description No Information Available Mental Status Description No Information Available Referrals Refer to Reason for Referral Status Appt Date Geovani Orourke MD Sent [address] [place], [place] [id number] [phone] [facility] Sent [address], [place] [id number] [phone]
--- OUTSIDE RECORDS SUMMARY | 2019-08-06 21:56 | XMS REPORT | Continuity of Care Document ---
:1950 External Reference #:[id number] Author Name JANE Kenny Address [address] [place] [address] Care Team Providers Name Role Phone Edin Newell MD - Family Medicine Care Team Information [employer] Rohit Sanders MD - Care Team Information [employer] [phone] Otolaryngology [place] Lawrence MD - Cardiovascular Care Team Information [employer] [phone] Disease Problems Active Problems Provider Date Dysthymia Edin Newell M.D. 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 Onset: 03/03/2017 pathological fracture Essential hypertension Edin Newell M.D. Onset: 05/11/2018 Gastroesophageal reflux disease Edin Newell M.D. 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 Onset: 03/13/2019 Dong hematuria Sandeep Knowles M.D. Onset: 03/13/[address] segment elevation myocardial Sandeep Knowles M.D. 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 2caps S20.469A Edin Newell, 2018 M.D. 100mg Capsules Atorvastatin Calcium 1 by mouth every day DR. Gallagher 04/14/2019 Doctor 40mg Tablets Omeprazole 1 by mouth every day 90caps Marycarmen 04/14/2019 40mg Ruddy, TOBACCO STRIPPER Capsules Alendronate Sodium Take One Tablet By 12tabs Edin Newell, 01/28/2019 Mouth Once Weekly M.D. 70mg Tablets Vitamin D 1 po qd Family Medicine 01/08/2014 [facility] Caps[facility] [place] Venlafaxine HCL ER take one capsule by 90caps F34.1 Edin Newell, 06/15 mouth every day M.D. 37.5mg Caps ER 24HR alternating with 2 capsules every other day as directed Valtrex 2 by mouth every day 20tabs Edin Newell, 12/30/2007 500mg Tablets x 5 days as needed M.D. Estrace 1 applicatorful Unknown 0.1mg/GM vaginally weekly Cream Brilinta 1 by mouth twice a Unknown 90mg Tablets day Nitroglycerin dissolve one tablet Unknown 0.4mg under the tongue as Tablets Sub needed, repeat every 5 minutes up to three tablets, call 911 after 3 tablets Aspirin 81 1 by mouth every day Unknown 81mg Tablets Multivitamin Adult 1 by mouth every day Unknown Tablets Metoprolol Succinate 1 by mouth bid I10 Unknown ER 50mg Tablets ER 24HR Lisinopril 2 by mouth every day Unknown 10mg Tablets Lisinopril 3 by mouth every day Unknown 5mg Tablets History Medications Macrobid 1 by mouth 14caps N39.0 Susan Shira 03/12/2019 - 100mg twice a day JIL Mejias 03/19/2019 Capsules Immunizations CPT Code Status Date Vaccine Lot # [id number] Given 05/24/2019 Pneumococcal Immunization [id number] Given 08/25/2018 High-Dose, Influenza Virus Vacccine-fluzone 65 and older 76555 Given 06/23/2017 Influenza Vac, Quadrivalent, Slit Virus, Im [id number] 79389 Given 03/03/2017 Pneumococcal Conjugate Vacc-13 [id number] 08969 Given 09/04/2014 DO Not Use Split Influenza Virus Vaccine 99067 Given 07/21/2013 Zostivax [id number] Given 07/06/2013 DO Not Use Split Influenza Virus Vaccine 02956 Given 07/07/2012 DO Not Use Split Influenza Virus Vaccine [id number] Given 02/17/2012 Tdap Tetanus, W Pertussis [id number] 85923 Given 10/15/2009 H1N1 Virus Vaccine Vital Signs Date Vital Result Comment 07/14/2019 3:22pm BP Systolic 110 mmHg BP Diastolic 70 mmHg Heart Rate 68 /min Body Temperature 98.1 F Respiratory Rate 16 /min Weight 130.00 lb 05/24/2019 10:22am BP Systolic 118 mmHg BP Diastolic 72 mmHg Heart Rate 76 /min Body Temperature 97.8 F Respiratory Rate 16 /min Height 63 inches 5'3" Weight 131.00 lb BMI (Body Mass Index) 23.2 kg/m2 Results Test Date Facility Test Result H/L Range Note Basic Metabolic Panel 06/22/2019 [facility] [place]odium 140 mmol/L Normal 135-145 Potassium 4.4 mmol/L Normal 3.5-5.0 Chloride 106 mmol/L Normal 101-111 Co2 Carbon Dioxide 29 mmol/L Normal 22-32 Anion Gap 5 mmol/L Normal 2-11 Glucose 92 mg/dL Normal 70-100 Blood Urea Nitrogen 23 mg/dL Normal 6-24 Creatinine 0.75 mg/dL Normal 0.51-0.95 BUN/Creatinine Ratio 30.7 High 8-20 Calcium 9.6 mg/dL Normal 8.6-10.3 Egfr Non- 77.1 >60 Egfr 93.3 >60 1 Laboratory test finding 06/22/2019 [facility] [place] Creatine Kinase(CK) 58 U/L Normal 10-223 TSH (Thyroid Stim Horm) 2.18 mcIU/mL Normal 0.34-5.60 Laboratory test finding 04/26/2019 [facility] [place] Potassium Redraw 3.9 mmol/L Normal 3.5-5.0 Basic Metabolic Panel 04/26/2019 [facility] [place] Sodium 140 mmol/L Normal 135-145 Chloride 105 mmol/L Normal 101-111 Co2 Carbon Dioxide 28 mmol/L Normal 22-32 Glucose 109 mg/dL High 70-100 Blood Urea Nitrogen 14 mg/dL Normal 6-24 Creatinine 0.77 mg/dL Normal 0.51-0.95 BUN/Creatinine Ratio 18.2 Normal 8-20 Calcium 9.8 mg/dL Normal 8.6-10.3 Egfr Non- 74.8 >60 Egfr 90.5 >60 2 Potassium TNP mmol/L 3.5-5.0 3 Anion Gap 7 mmol/L Normal 2-11 Laboratory test finding 04/07/2019 [facility] [place] Creatine Kinase(CK) 47 U/L Normal 10-223 4 Lipid Profile 04/07/2019 [facility] [place] Triglycerides 93 mg/dL 5 (Trig/Chol/HDL) Cholesterol 142 mg/dL 6 HDL Cholesterol 55.9 mg/dL 7 LDL Cholesterol 68 mg/dL 8 Comp Metabolic Panel 04/07/2019 [facility] [place] Sodium 140 mmol/L Normal 135-145 Potassium 4.6 mmol/L Normal 3.5-5.0 Chloride 104 [...] Egfr Non- 72.6 >60 Egfr 87.8 >60 9 CBC Auto Diff 04/07/2019 [facility] [place] White Blood Count 6.0 10^3/uL Normal 3.5- 10.8 Red Blood Count 4.43 10^6/uL Normal 3.70-4.87 [...] % Nucleated Red Blood Cells % 0.0 Basic Metabolic Panel 03/19/2019 [facility] [place] Sodium 142 mmol/L Normal 135-145 Potassium 4.0 mmol/L Normal 3.5-5.0 Chloride 107 mmol/L Normal 101-111 Co2 Carbon Dioxide 29 mmol/L Normal 22-32 Anion Gap 6 mmol/L Normal 2-11 Glucose 121 mg/dL High 70-100 Blood Urea Nitrogen 25 mg/dL High 6-24 Creatinine 0.91 mg/dL Normal 0.51-0.95 BUN/Creatinine Ratio 27.5 High 8-20 Calcium 10.0 mg/dL Normal 8.6-10.3 Egfr Non- 61.7 >60 Egfr 74.6 >60 10 Laboratory test 03/06/2019 [facility] [place] Poc Activated 436 seconds 11 finding Clotting Time Laboratory test 03/06/2019 [facility] [place] Poc Activated 229 seconds 12 finding Clotting Time Laboratory test 03/06/2019 [facility] [place] Poc Activated 266 seconds 13 finding Clotting Time CBC Auto Diff 03/06/2019 [facility] [place] White Blood Count 9.2 10^3/uL Normal 3.5- 10.8 Red Blood Count 4.97 10^6/uL High 3.70-4.87 Hemoglobin 15.0 g/dL Normal 12.0-16.0 Hematocrit 44 % Normal 35-47 Mean Corpuscular Volume 88 fL Normal 80-97 Mean Corpuscular Hemoglobin 30 pg Normal 27-31 Mean Corpuscular HGB Conc 34 g/dL Normal 31-36 Red Cell Distribution Width 13 % Normal 10-15 Platelet Count 243 10^3/uL Normal 150-450 Mean Platelet Volume 8.4 fL Normal 7.4-10.4 Abs Neutrophils 5.5 10^3/uL Normal 1.5-7.7 Abs Lymphocytes 2.9 10^3/uL Normal 1.0-4.8 Abs Monocytes 0.7 10^3/uL Normal 0-0.8 Abs Eosinophils 0.1 10^3/uL Normal 0-0.6 Abs Basophils 0.1 10^3/uL Normal 0-0.2 Abs Nucleated RBC 0.0 10^3/uL Granulocyte % 59.4 % Lymphocyte % 31.2 % Monocyte % 7.1 % Eosinophil % 1.6 % Basophil % 0.7 % Nucleated Red Blood Cells % 0.0 Inr/Protime 03/06/2019 [facility] [place] Inr 0.90 Normal 0.82-1.09 14 Laboratory test 03/06/2019 [facility] [place] Partial Thrombo 31.4 seconds Normal 26.0- 38.0 finding Time PTT Lactic Acid 1.9 mmol/L Normal 0.5-2.0 15 Comp Metabolic Panel 03/06/2019 [facility] [place] Sodium 140 mmol/L Normal 135-145 Potassium 3.2 mmol/L Low 3.5-5.0 Chloride 106 mmol/L Normal 101-111 Co2 Carbon Dioxide 20 mmol/L Low 22-32 Anion Gap 14 mmol/L High 2-11 Glucose 137 mg/dL High 70-100 Blood Urea Nitrogen 19 mg/dL Normal 6-24 Creatinine 0.73 mg/dL Normal 0.51-0.95 BUN/Creatinine Ratio 26.0 High 8-20 Calcium 9.8 mg/dL Normal 8.6-10.3 Total Protein 7.2 g/dL Normal 6.4-8.9 Albumin 4.8 g/dL Normal 3.2-5.2 Globulin 2.4 g/dL Normal 2-4 Albumin/Globulin Ratio 2.0 Normal 1-3 Total Bilirubin 0.50 mg/dL Normal 0.2-1.0 Alkaline Phosphatase 48 U/L Normal 34-104 Alt 15 U/L Normal 7-52 Ast 18 U/L Normal 13-39 Egfr Non- 79.5 >60 Egfr 96.2 >60 16 Laboratory test finding 03/06/2019 [facility] [place] LDL Cholesterol Direct 128 mg/dL 17 Creatine Kinase(CK) 83 U/L Normal 10-223 CKMB 03/06/2019 [facility] [place] CKMB ng/mL 3.7 ng/mL Normal 0.6-6.3 Laboratory test 03/06/2019 [facility] [place] Troponin I 0.07 ng/mL Critical high <0.04 18 finding B-Type Natriuretic Peptide BNP 137 pg/mL High <=100 Lipid Profile (Trig/Chol/HDL) 03/06/2019 [facility] [place] Triglycerides 142 mg/dL 19 Cholesterol 225 mg/dL 20 HDL Cholesterol 71.4 mg/dL 21 LDL Cholesterol 125 mg/dL 22 Laboratory test finding 03/06/2019 [facility] [place] Hemoglobin A1c (Glyco 5.7 % High 4.0-5.6 23 HGB) 1 Because ethnic data is not always [...] 5 Kidney failure <15 (or dialysis) 2 Because ethnic data is not always readily [...] 15-29 5 Kidney failure <15 (or dialysis) 3 Specimen Hemolyzed. Result may not be valid. Unable to report test result due to hemolysis. 4 FASTING in 2 weeks cc pmd Copy Result to: EDIN NEWELL ([id number]) 5 Desirable: <150 Borderline High: 150-199 High: [...] 5 Kidney failure <15 (or dialysis) 10 Because ethnic data is not always readily [...] 15-29 5 Kidney failure <15 (or dialysis) 11 Italian Lecturer: [id number] Reference Range: 74-125 seconds 12 Italian Lecturer: [id number] Reference Range: 74-125 seconds 13 Italian Lecturer: [id number] Reference Range: 74-125 seconds 14 Standard intensity warfarin therapeutic range: 2.0-3.0 High intensity warfarin therapeutic range: 2.5-3.5 15 [place] Severe Sepsis and Septic Shock Management Bundle Measure requires all lactic acids initially measuring >2.0 mmol/L be repeated. 16 Because ethnic data is not always readily [...] 15-29 5 Kidney failure <15 (or dialysis) 17 Desirable: <100 Near Optimal: 100-129 Borderline High: 130-159 High: 160-189 Very High: >189 18 Result TnIDx:0.[address] NIEVES at: 12:01:23 by:[id number] Read back by: DR NIEVES Troponin-I testing on Plasma Separator Tubes (PST) has a known false positive rate of 0.20-0.40%. All positive troponins reflex immediately to secondary confirmatory testing. Using the InterEx DxI 800 Access Immunoassay systems, the 99th percentile upper reference limit was demonstrated to be < 0.03 ng/mL. 19 Desirable: <150 Borderline High: 150-199 High: 200-499 Very High: >500 20 Desirable: <200 Borderline High: 200-239 High: >239 21 Low: <40 Desirable: 40-60 High: >60 22 Desirable: <100 Near Optimal: 100-129 Borderline High: 130-159 High: 160-189 Very High: >189 23 Therapeutic target for the treatment of diabetes mellitus patients is <7% HBA1C, and in selective patients <6.0%. Please refer to [place] [employer] diabetic care guidelines for further information. Procedures Date Code Description Status 06/08/2019 [id number] Mammogram Completed 05/22/2018 [id number] Mammogram Completed 02/20/2017 [id number] Mammogram Completed 01/16/2016 [id number] Colonoscopy Completed 09/29/2015 [id number] Bone Mineral Density Test Completed 12/07/2014 [id number] Mammogram Completed 11/16/2013 [id number] Mammogram Completed 05/10/2013 [id number] Mammogram Completed 11/24/2009 [id number] Mammogram Completed Medical Devices Description No Information Available Encounters Type Date Location Provider Dx Diagnosis Office Visit 05/24/2019 [facility] Edin Newell, I25.5 Ischemic 10:20a M.DMary cardiomyopathy K21.9 Gastro-esophageal reflux disease without esophagitis Z23 Encounter for immunization Z12.31 Encntr screen mammogram for malignant neoplasm of breast Office Visit 04/14/2019 4:30p [facility] Edin Harmon I25.10 Athscl heart Dru Newell disease of gamb[place] coronary artery w/o ang pctrs I25.5 Ischemic cardiomyopathy I10 Essential (primary) hypertension E78.5 Hyperlipidemia, unspecified F34.1 Dysthymic disorder M81.8 Other osteoporosis without current pathological fracture K21.9 Gastro-esophageal reflux disease without esophagitis Office Visit 03/13/2019 10:00a [facility] Sandeep Cyr I21.02 Stemi involving Dru Knowles left anterior descending coronary artery R31.0 Gross hematuria N39.0 Urinary tract infection, site not specified Assessments Date Code Description Provider 07/14/2019 S20.469A Insect bite (nonvenomous) of unspecified JANE Kenny back wall of thorax, initial encounter 05/24/2019 I25.5 Ischemic cardiomyopathy Edin Newell M.D. 05/24/2019 K21.9 Gastro-esophageal reflux disease without Edin Newell M.D. esophagitis 05/24/2019 Z23 Encounter for immunization Edin Newell M.D. 05/24/2019 Z12.31 Encounter for screening mammogram for Edin A. Darlow, M.D. malignant neoplasm of breast 04/14/2019 I25.10 Atherosclerotic 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of gamb[place] Edin Newell M.D. coronary artery with 04/14/2019 I25.5 Ischemic cardiomyopathy Edin Newell M.D. 04/14/2019 I10 Essential (primary) hypertension Edin Newell M.D. 04/14/2019 E78.5 Hyperlipidemia, unspecified Edin Newell M.D. 04/14/2019 F34.1 Dysthymic disorder Edin Newell M.D. 04/14/2019 M81.8 Other osteoporosis without current Edin Newell M.D. pathological fracture 04/14/2019 K21.9 Gastro-esophageal reflux disease without Edin Newell M.D. esophagitis 03/13/[address] elevation (Stemi) myocardial infarction Sandeep Knowles M.D. involving left an 03/13/2019 R31.0 Gross hematuria Sandeep Knowles M.D. 03/13/2019 N39.0 Urinary tract infection, site not Sandeep Knowles M.D. specified Plan of Treatment Future Appointment(s):11/24/2019 9:30 am - Edin Newell M.D. at [facility]07/14/2019 - Dolores Rosario, PAS20.469A Insect bite (nonvenomous) of unspecified back wall of thorax, initial encounterNew Medication:Doxycycline Hyclate 100 mg - take 2 tablets.Comments:Doxycycline 200 mg one dose.Monitor for any increase in red, swelling, or fevers, joint pains.AllComments: PCMHMedication Management Patient Understands medications he's taking? Yes Are there Barriers to Adherence? No Has the patient been asked about herbal supplements and therapies, and OTC meds? Yes Care Plan1. Patient has been queried about patient's goals/preferences and functional/ lifestyle goals at relevant visits. Yes If relevant, describe: N/A2. Treatment goals as explained to the patient: above3. Are there barriers to meeting treatment goals? No If Yes, please describe:4. Self-Management goals as described to the patient: Yes As always, we strongly encourage a healthy diet and making physical activity a part of your every day life. If you have questions about how or where to start, please contact the office. Functional Status Description No Information Available Mental Status Description No Information Available Referrals Description No Information Available
[2019-08-06 23:34] LABS: ABS Basophils 0.1 10^3/ul (0-0.2); ABS Eosinophils 0.3 10^3/ul (0-0.6); ABS Lymphocytes 2.1 10^3/ul (1.0-4.8); ABS Monocytes 0.5 10^3/ul (0-0.8); ABS Neutrophils 4.4 10^3/ul (1.5-7.7); Eosinophil % 3.5 %; Hematocrit 39 % (35-47); Hemoglobin 13.4 g/dL (12.0-16.0); Lymphocyte % 28.4 %; Mean Corpuscular HGB Conc 34 g/dL (31-36); Mean Corpuscular Hemoglobin 31 pg (27-31); Mean Corpuscular Volume 89 fL (80-97); Nucleated Red Blood Cells % 0.1; Platelet Count 208 10^3/uL (150-450); Red Blood Count 4.39 10^6 /uL (3.70-4.87); Red Cell Distribution Width 13 % (10-15); White Blood Count 7.3 10^3/uL (3.5-10.8)
[2019-08-06 23:41] LABS: INR 0.99 (0.82-1.09)
[2019-08-06 23:49] LABS: Albumin 4.5 g/dL (3.2-5.2); Albumin/Globulin Ratio 1.7 (1-3); BUN/Creatinine Ratio 20.3 (8-20); EGFR African American 87.8 (>60); EGFR Non-African American 72.6 (>60); Globulin 2.6 g/dL (2-4); Total Bilirubin 0.5 mg/dL (0.2-1.0); Total Protein 7.1 g/dL (6.4-8.9)
[2019-08-06 23:52] LABS: Troponin I 0.01 ng/mL (<0.04)
--- NOTE | 2019-08-07 00:53 | ED ---
HPI Chest Pain - HPI Summary HPI Summary: Patient presents with left-sided chest pain starting at 2 PM and lasting until 9 PM, radiating into left arm. Currently resolved prior to arrival. Pain in chest described as a constant pinching, rated at worst 2/10. Denies trauma, fever, cough, sore throat, SOB, N/V/D, abdominal pain, change in urine, change in BM. History of [place] in February 2019 with 3 stents placed patient states she is compliant with her medication. Currently in cardiac rehabilitation. - History of Current Complaint Chief Complaint: EDChestPainROMI Time Seen by Provider: 08/06/19 23:54 Hx Obtained From: Patient, Family/Assistance Coordinator Onset/Duration: Started Hours Ago Timing: Constant Initial Severity: Mild Current Severity: None Pain Intensity: 0 Pain Scale Used: 0-10 Numeric Chest Pain Location: Left Anterior Chest Pain Radiates To:: Arm Character: Sharp/Stabbing Aggravating Factor(s): Nothing Alleviating Factor(s): Nothing Associated Signs and Symptoms: Positive: Chest Pain - Additional Pertinent History Primary Care Physician: [facility] - Allergy/Home Medications Allergies/Adverse Reactions: Allergies Allergy/AdvReac Type Severity Reaction Status Date / Time ibuprofen Allergy Rash Verified 08/06/19 21:50 Home Medications: Home Medications Alendronate (NF) 70 mg PO WEEKLY 08/07/19 [History Confirmed 08/07/19] Atorvastatin* 40 mg PO DAILY 08/07/19 [History Confirmed 08/07/19] PMH/Surg Hx/FS Hx/Imm Hx Endocrine/Hematology History: Denies: Hx Diabetes, Hx Thyroid Disease Cardiovascular History: Reports: Hx Hypertension Respiratory History: Denies: Hx Asthma Musculoskeletal History: Reports: Hx Arthritis - GENERALIZED OSTEO, Hx Rheumatoid Arthritis, Hx Osteoporosis, Other Musculoskeletal History Denies: Hx Scoliosis Sensory History: Reports: Hx Contacts or Glasses Denies: Hx Hearing Aid Opthamlomology History: Reports: Hx Contacts or Glasses Neurological History: Denies: Hx Headaches, Other Neuro Impairments/Disorders Psychiatric History: Reports: Hx Depression - ON MEDS PT STATES CONTROLLED - Cancer History Hx Chemotherapy: No Hx Radiation Therapy: No - Surgical History Surgery Procedure, Year, and Place: RIGHT SHOULD[place]PA[place] [facility] [place], hysterectomy 1991, appendix 1972. LAPAROSCOPY 1988. AP REPAIR DR [place] [facility] [place] Anesthesia Reactions: No Infectious Disease History: No Infectious Disease History: Denies: Hx Hepatitis, Traveled Outside the [place] in Last 30 Days - Family History Known Family History: Positive: Hypertension - Social History Alcohol Use: Occasionally Alcohol Amount: WINE Hx Substance Use: No Substance Use Type: Reports: None Hx Tobacco Use: No Smoking Status (MU): Never Smoked Tobacco Have You Smoked in the Last Year: No Review of Systems Constitutional: Negative Eyes: Negative ENT: Negative Positive: Chest Pain Respiratory: Negative Gastrointestinal: Negative Genitourinary: Negative Musculoskeletal: Negative Skin: Negative Neurological: Negative Psychological: Normal All Other Systems Reviewed And Are Negative: Yes Physical Exam - Summary Physical Exam Summary: Chest nontender to palpation. Lung sounds clear to auscultation bilaterally. Triage Information Reviewed: Yes Vital Signs On Initial Exam: Initial Vitals Temp Pulse Resp BP Pulse Ox 98.2 F 78 16 155/76 99 08/06/19 21:40 08/06/19 21:40 08/06/19 21:40 08/06/19 21:40 08/06/19 21:40 Vital Signs Reviewed: Yes Appearance: Positive: Well-Appearing Skin: Positive: Warm Head/Face: Positive: Normal Head/Face Inspection Eyes: Positive: Normal Neck: Positive: Supple Respiratory/Lung Sounds: Positive: Clear to Auscultation Cardiovascular: Positive: Normal Abdomen Description: Positive: Nontender Musculoskeletal: Positive: Normal Neurological: Positive: Normal Psychiatric: Positive: Normal AVPU Assessment: Alert - [place] Coma Scale Best Eye Response: 4 - Spontaneous Best Motor Response: 6 - Obeys Commands Best Verbal Response: 5 - Oriented Coma Scale Total: 15 Procedures - Sedation Patient Received Moderate/Deep Sedation with Procedure: No Diagnostics - Vital Signs Vital Signs Temp Pulse Resp BP Pulse Ox 08/06/19 21:40 98.2 F 78 16 155/76 99 - Laboratory Lab Results: Lab Results 08/06/19 08/06/19 08/06/19 Range/Units 23:23 23:23 23:23 WBC 7.3 (3.5-10.8) 10^3/uL RBC 4.39 (3.70-4.87) 10^6 /uL Hgb 13.4 (12.0-16.0) g/dL Hct 39 (35-47) % MCV 89 (80-97) fL MCH 31 (27-31) pg MCHC 34 (31-36) g/dL RDW 13 (10-15) % Plt Count 208 (150-450) 10^3/uL MPV 8.0 (7.4-10.4) fL Neut % (Auto) 60.5 % Lymph % (Auto) 28.4 % [place] % (Auto) 6.8 % Eos % (Auto) 3.5 % Baso % (Auto) 0.8 % Absolute Neuts (auto) 4.4 (1.5-7.7) 10^3/ul Absolute Lymphs (auto) 2.1 (1.0-4.8) 10^3/ul Absolute Monos (auto) 0.5 (0-0.8) 10^3/ul Absolute Eos (auto) 0.3 (0-0.6) 10^3/ul Absolute Basos (auto) 0.1 (0-0.2) 10^3/ul Absolute Nucleated RBC 0.0 10^3/ul Nucleated RBC % 0.1 INR (Anticoag Therapy) 0.99 (0.82-1.09) Sodium 143 (135-145) mmol/L Potassium 4.0 (3.5-5.0) mmol/L Chloride 107 (101-111) mmol/L Carbon Dioxide 30 (22-32) mmol/L Anion Gap 6 (2-11) mmol/L BUN 16 (6-24) mg/dL Creatinine 0.79 (0.51-0.95) mg/dL Est GFR ( Amer) 87.8 (>60) Est GFR (Non-Af Amer) 72.6 (>60) BUN/Creatinine Ratio 20.3 H (8-20) Glucose 121 H (70-100) mg/dL Calcium 10.0 (8.6-10.3) mg/dL Total Bilirubin 0.50 (0.2-1.0) mg/dL AST 19 (13-39) U/L ALT 18 (7-52) U/L Alkaline Phosphatase 55 (34-104) U/L Troponin I 0.01 (<0.04) ng/mL Total Protein 7.1 (6.4-8.9) g/dL Albumin 4.5 (3.2-5.2) g/dL Globulin 2.6 (2-4) g/dL Albumin/Globulin Ratio 1.7 (1-3) Result Diagrams: 08/06/19 23:23 08/06/19 23:23 Lab Statement: Any lab studies that have been ordered have been reviewed, and results considered in the medical decision making process. Chest Pain Course/Dx - Course Course Of Treatment: Patient presents with left-sided chest pain starting at 2 PM and lasting until 9 PM, radiating into left arm. Currently resolved prior to arrival. Pain in chest described as a constant pinching, rated at worst 2/ 10. Denies trauma, fever, cough, sore throat, SOB, N/V/D, abdominal pain, change in urine, change in BM. History of [place] in February 2019 with 3 stents placed patient states she is compliant with her medication. Currently in cardiac rehabilitation. Vital signs within normal limits. Labs unremarkable. EKG sinus rhythm, rate of 77, normal P axis. Chest x-ray negative. Serial troponins negative. Follow up with cardiology. - Diagnoses Provider Diagnoses: Atypical chest pain Discharge ED - Sign-Out/Discharge Documenting (check all that apply): Patient Departure - Discharge Plan Condition: Stable Disposition: HOME Patient Education Materials: Chest Pain (ED) Referrals: Edin Newell MD [Primary Care Provider] - Additional Instructions: Follow-up with your client program manager for further evaluation. - Billing Disposition and Condition Condition: STABLE Disposition: Home
[2019-08-07 03:35] VITALS: BP 138/84
--- NOTE | 2019-08-07 11:08 | ED ---
Imaging and Labs Follow Up Follow Up Type: Imaging Imaging Result: IMPRESSION: HYPERINFLATION, CONSISTENT WITH COPD. NO ACTIVE CARDIOPULMONARY DISEASE. R2 Preliminary Imaging Read R2 Patient Communication/Plan: No change in treatment needed. Provider Diagnoses: Atypical chest pain
== END 2019-08-07 03:34 | disposition home or self-care (01) ==
LOC: ED 21:39
DX: R07.89 Other chest pain (principal); I10 Essential (primary) hypertension; M06.9 Rheumatoid arthritis, unspecified; F32.9 Major depressive disorder, single episode, unspecified; Z79.899 Other long term (current) drug therapy; Z88.6 Allergy status to analgesic agent
CPT/HCPCS: 36415; 71046; 80053; 84484; 85025; 85610; 93005; 99283

== ENCOUNTER 2019-11-24 11:58 | Observation (INO) | payer MEDICARE ==
[2019-11-24 12:23] LABS: ABS Basophils 0.1 10^3/ul (0-0.2); ABS Eosinophils 0.2 10^3/ul (0-0.6); ABS Lymphocytes 1.4 10^3/ul (1.0-4.8); ABS Monocytes 0.4 10^3/ul (0-0.8); ABS Neutrophils 4.9 10^3/ul (1.5-7.7); Hematocrit 37 % (35-47); Hemoglobin 12.9 g/dL (12.0-16.0); Lymphocyte % 20.2 %; Mean Corpuscular HGB Conc 35 g/dL (31-36); Mean Corpuscular Hemoglobin 31 pg (27-31); Mean Corpuscular Volume 89 fL (80-97); Mean Platelet Volume 8.2 fL (7.4-10.4); Platelet Count 228 10^3/uL (150-450); Red Cell Distribution Width 13 % (10-15); White Blood Count 7.1 10^3/uL (3.5-10.8)
--- OUTSIDE RECORDS SUMMARY | 2019-11-24 12:27 | XMS REPORT | Continuity of Care Document ---
:1950 External Reference #:[id number] Author Name Sandeep Knowles M.D. Address [address] [place] [address] Care Team Providers Name Role Phone Edin Newell MD - Family Medicine Care Team Information Computer Specialist Rohit Sanders MD - Care Team Information Computer Specialist [phone] Otolaryngology [place] Lawrence MD - Cardiovascular Care Team Information Computer Specialist [phone] Disease Problems Active Problems Provider Date Dysthymia Edin Newell M.D. 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 Onset: 03/03/2017 pathological fracture Essential hypertension Edin Newell M.D. Onset: 05/11/2018 Otitis media Sandeep Knowles M.D. Onset: 11/06/2019 Gastroesophageal reflux disease Edin Newell M.D. Onset: 04/14/2019 Atherosclerotic 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of [place] Edin Newell M.D. Onset: 2018 coronary artery [...] Active Allergies Reaction Severity Comments Date Ibuprofen rash 12/30/2007 Medications Active Medications SIG Qnty Indications Ordering Date Provider Vitamin D3 2000U 1 po qd Sandeep FMary 11/06/2019 Dru Knowles Amoxicillin/Clavulana 1 twice a day w/ 14tabs Sandeep FMary 11/06/2019 te Potassium food. Dru Knowles 875-125mg Tablets Acetaminophen-Codeine take 1 tablet by 20tabs Sandeep FMary 11/06/2019 #3 mouth every 4 Dru Knowles 300-30mg Tablets hours as needed maximum daily dose of 6 per day Omeprazole 1 by mouth every 90caps Marycarmen 04/14/2019 40mg day Ruddy, MATERIAL MOVER Capsules Alendronate Sodium Take One Tablet By 12tabs Edin Newell, 01/28/2019 70mg Mouth Once Weekly M.DMary Tablets Venlafaxine HCL ER take one capsule 90caps F34.1 Edin Newell, 2011 by mouth every day M.D. 37.5mg Caps ER 24HR alternating with 2 capsules every other day as directed Brilinta 1 by mouth twice a Unknown 90mg Tablets day Nitroglycerin dissolve one Unknown 0.4mg tablet under the Tablets Sub tongue as needed, repeat every 5 minutes up to three tablets, call 911 after 3 tablets Aspirin 81 1 by mouth every Unknown 81mg Tablets day Multivitamin Adult 1 by mouth every Unknown day Tablets Metoprolol Succinate 1 by mouth bid I10 Unknown ER 50mg Tablets ER 24HR Crestor 1 by mouth every Unknown 10mg Tablets day Coq10 1 po qd Unknown 200mg Capsules Lisinopril 1 by mouth bid Unknown 20mg Tablets History Medications Doxycycline Hyclate take 2 tablets. 2caps S20.469A Edin Newell, 2018 - M.D. 2019 100mg Capsules Immunizations CPT Code Status Date Vaccine Lot # [id number] Given 10/22/2019 High-Dose, Influenza Virus Vacccine-fluzone 65 and older [id number] Given 05/24/2019 Pneumococcal Immunization [id number] Given 08/25/2018 High-Dose, Influenza Virus Vacccine-fluzone 65 and older 86261 Given 06/23/2017 Influenza Vac, Quadrivalent, Slit Virus, Im [id number] 56687 Given 03/03/2017 Pneumococcal Conjugate Vacc-13 [id number] 38681 Given 09/04/2014 DO Not Use Split Influenza Virus Vaccine 37521 Given 07/21/2013 Zostivax [id number] 14010 Given 07/06/2013 DO Not Use Split Influenza Virus Vaccine 34764 Given 07/07/2012 DO Not Use Split Influenza Virus Vaccine 93426 Given 02/17/2012 Tdap Tetanus, W Pertussis [id number] 80614 Given 10/15/2009 H1N1 Virus Vaccine Vital Signs Date Vital Result Comment 11/06/2019 11:06am BP Systolic 134 mmHg BP Diastolic 60 mmHg Heart Rate 84 /min Body Temperature 98.6 F Respiratory Rate 16 /min O2 % BldC Oximetry 98 % Height 63 inches 5'3" Weight 128.38 lb BMI (Body Mass Index) 22.7 kg/m2 07/14/2019 3:22pm BP Systolic 110 mmHg BP Diastolic 70 mmHg Heart Rate 68 /min Body Temperature 98.1 F Respiratory Rate 16 /min Weight 130.00 lb Results Test Acquired Date Facility Test Result H/L Range Note Laboratory test 08/07/2019 [facility] [place] Troponin-I 0.02 ng/mL <0.04 1 finding (TnI) CBC Auto Diff 08/06/2019 [facility] [place] White Blood 7.3 10^3/uL Normal 3.5-10.8 Count Red Blood Count 4.39 10^6/uL Normal 3.70-4.87 Hemoglobin 13.4 g/dL Normal 12.0-16.0 Hematocrit 39 % Normal 35-47 Mean Corpuscular Volume 89 fL Normal 80-97 Mean Corpuscular Hemoglobin 31 pg Normal 27-31 Mean Corpuscular HGB Conc 34 g/dL Normal 31-36 Red Cell Distribution Width 13 % Normal 10-15 Platelet Count 208 10^3/uL Normal 150-450 Mean Platelet Volume 8.0 fL Normal 7.4-10.4 Abs Neutrophils 4.4 10^3/uL Normal 1.5-7.7 Abs Lymphocytes 2.1 10^3/uL Normal 1.0-4.8 Abs Monocytes 0.5 10^3/uL Normal 0-0.8 Abs Eosinophils 0.3 10^3/uL Normal 0-0.6 Abs Basophils 0.1 10^3/uL Normal 0-0.2 Abs Nucleated RBC 0.0 10^3/uL Granulocyte % 60.5 % Lymphocyte % 28.4 % Monocyte % 6.8 % Eosinophil % 3.5 % Basophil % 0.8 % Nucleated Red Blood Cells % 0.1 Inr/Protime 08/06/2019 [facility] [place] Inr 0.99 Normal 0.82-1.09 2 Comp Metabolic Panel 08/06/2019 [facility] [place] Sodium 143 mmol/L Normal 135-145 Potassium 4.0 mmol/L Normal 3.5-5.0 Chloride 107 mmol/L Normal 101-111 Co2 Carbon Dioxide 30 mmol/L Normal 22-32 Anion Gap 6 mmol/L Normal 2-11 Glucose 121 mg/dL High 70-100 Blood Urea Nitrogen 16 mg/dL Normal 6-24 Creatinine 0.79 mg/dL Normal 0.51-0.95 BUN/Creatinine Ratio 20.3 High 8-20 Calcium 10.0 mg/dL Normal 8.6-10.3 Total Protein 7.1 g/dL Normal 6.4-8.9 Albumin 4.5 g/dL Normal 3.2-5.2 Globulin 2.6 g/dL Normal 2-4 Albumin/Globulin Ratio 1.7 Normal 1-3 Total Bilirubin 0.50 mg/dL Normal 0.2-1.0 Alkaline Phosphatase 55 U/L Normal 34-104 Alt 18 U/L Normal 7-52 Ast 19 U/L Normal 13-39 Egfr Non- 72.6 >60 Egfr 87.8 >60 3 Laboratory test finding 08/06/2019 [facility] [place] Troponin-I (TnI) 0.01 ng/mL < 0.04 4 Basic Metabolic Panel 06/22/2019 [facility] [place] Sodium 140 mmol/L Normal 135-145 Potassium 4.4 mmol/L Normal 3.5-5.0 Chloride 106 mmol/L Normal 101-111 Co2 Carbon Dioxide 29 mmol/L Normal 22-32 Anion Gap 5 mmol/L Normal 2-11 Glucose 92 mg/dL Normal 70-100 Blood Urea Nitrogen 23 mg/dL Normal 6-24 Creatinine 0.75 mg/dL Normal 0.51-0.95 BUN/Creatinine Ratio 30.7 High 8-20 Calcium 9.6 mg/dL Normal 8.6-10.3 Egfr Non- 77.1 >60 Egfr 93.3 >60 5 Laboratory test finding 06/22/2019 [facility] Creatine Kinase(CK) 58 U/L Normal 10-223 TSH (Thyroid Stim Horm) 2.18 mcIU/mL Normal 0.34-5.60 1 Troponin-I testing on Plasma Separator Tubes (PST) has a known false positive rate of 0.20-0.40%. All positive troponins reflex immediately to secondary confirmatory testing. Using the [employer] DxI 800 Access Immunoassay systems, the 99th percentile upper reference limit was demonstrated to be < 0.03 ng/mL. 2 Standard intensity warfarin therapeutic range: 2.0-3.0 High intensity warfarin therapeutic range: 2.5-3.5 3 Because ethnic data is not always readily [...] 15-29 5 Kidney failure <15 (or dialysis) 4 Troponin-I testing on Plasma Separator Tubes (PST) has a known false positive rate of 0.20-0.40%. All positive troponins reflex immediately to secondary confirmatory testing. Using the [employer] DxI 800 Access Immunoassay systems, the 99th percentile upper reference limit was demonstrated to be < 0.03 ng/mL. 5 Because ethnic data is not always readily [...] 15-29 5 Kidney failure <15 (or dialysis) Procedures Date Code Description Status 11/06/2019 04389 Pulse Oximetry Completed 06/08/2019 [id number] Mammogram Completed 05/22/2018 [id number] Mammogram Completed 02/20/2017 [id number] Mammogram Completed 01/16/2016 [id number] Colonoscopy Completed 09/29/2015 445343418 Bone Mineral Density Test Completed 12/07/2014 [id number] Mammogram Completed 11/16/2013 [id number] Mammogram Completed 05/10/2013 [id number] Mammogram Completed 11/24/2009 [id number] Mammogram Completed Medical Devices Description No Information Available Encounters Type Date Location Provider Dx Diagnosis Office Visit 07/14/2019 [facility] Office Dolores Rosario, S20.469A Insect bite 3:15p PA (nonvenomous) of unsp back wall of thorax, init W57.xxxA Bit/stung by nonvenom insect & oth nonvenom arthropods, init Office Visit 05/24/2019 10:20a [facility] Office Edin Harmon I25.5 Elizabeth Newell M.D. cardiomyopathy K21.9 Gastro-esophageal reflux disease without esophagitis Z23 Encounter for immunization Z12.31 Encntr screen mammogram for malignant neoplasm of breast Assessments Date Code Description Provider 11/06/2019 J01.80 Other acute sinusitis Sandeep Knowles M.D. 11/06/2019 H66.91 Otitis media, unspecified, right ear Sandeep Knowles M.D. 07/14/2019 S20.469A Insect bite (nonvenomous) of unspecified Dolores Rosario , JANE back wall of thorax, initial encounter 07/14/2019 W57.xxxA Bitten or stung by nonvenomous insect and JANE Kenny other nonvenomous arthropods, initial encounter 05/24/2019 I25.5 Ischemic cardiomyopathy Edin Newell M.D. 05/24/2019 K21.9 Gastro-esophageal reflux disease without Edin Newell M.D. esophagitis 05/24/2019 Z23 Encounter for immunization Edin Newell M.D. 05/24/2019 Z12.31 Encounter for screening mammogram for Edin Newell M.D. malignant neoplasm of breast Plan of Treatment Future Appointment(s):11/24/2019 9:30 am - Edin Newell M.D. at [facility] Bixncx0411/06/2019 - Sandeep Knowles M.D.J01.80 Other acute hbhhednvoB09.91 Otitis media, unspecified, right earComments:start augmentin 875mg bid, and call us if no improvementAllNew Medication:Vitamin D3 2000U - 1 po qdAmoxicillin/Clavulanate Potassium 875-125 mg - 1 twice a day w/ food.Acetaminophen-Codeine #3 300-30 mg - take 1 tablet by mouth every 4 hours as needed maximum daily dose of 6 per day Functional Status Description No Information Available Mental Status Description No Information Available Referrals Description No Information Available
--- OUTSIDE RECORDS SUMMARY | 2019-11-24 12:27 | XMS REPORT | Continuity of Care Document ---
:1950 External Reference #:[id number] Author Name Nu Garrido MD Address [address] [place] [address] Care Team Providers Name Role Phone Edin Newell M.D. 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 Onset: 02/06/2012 Social History Type Date Description Comments Sex Unknown Cigarette Use Does Not Smoke Cigarettes Tobacco Use Start: Unknown Never Smoked Cigarettes Smoking Status Reviewed: 10/22/19 Never Smoked Cigarettes ETOH Use Occasionally consumes alcohol Recreational Drug Use Does Not Use Drugs Tobacco Use Start: Unknown Patient has never smoked Allergies, Adverse Reactions, Alerts Active Allergies Reaction Severity Comments Date Ibuprofen 12/31/2010 Medications Active Medications SIG Qnty Indications Ordering Date Provider Valtrex 1 po qd 60tabs 054.12 Edu Harmon 12/31/2010 500mg Tablets Dru Bruner Venlafaxine HCL Unknown 50mg Tablets Methylphenidate HCL Unknown Fosamax take 1 by mouth Unknown 70mg Tablets per week. take 30 minutes before food/or other medications. avoid lying down for 30 minutes after med taken Estrace Unknown Brilinta Unknown Lisinopril Unknown Prilosec Unknown Aspirin 81 Unknown Vitamin D Unknown (Cholecalciferol) Calcium 1200 Unknown Nitroglycerin Unknown Crestor Unknown Metoprolol Succinate ER Unknown Medications Administered in Office Medication SIG Qnty Indications Ordering Provider Date PT SCRN Tbco Id as Non User Nu Garrido MD 10/22/2019 Injection Immunizations Description No Information Available Vital Signs Date Vital Result Comment 10/22/2019 9:32am BP Systolic 140 mmHg BP Diastolic 80 mmHg Height 64.25 inches 5'4.25" Weight 129.00 lb BMI (Body Mass Index) 22.0 kg/m2 Last Menstrual Period 1188762 2 Parity 2 10/01/2017 9:21am BP Systolic 130 mmHg BP Diastolic 80 mmHg Height 64.25 inches 5'4.25" Weight 130.00 lb BMI (Body Mass Index) 22.1 kg/m2 Last Menstrual Period [id number] 2 Parity 2 Results Description No Information Available Procedures Date Code Description Status 06/08/2019 [id number] Mammogram Completed 01/16/2016 [id number] Colonoscopy Completed Medical Devices Description No Information Available Encounters Type Date Location Provider Dx Diagnosis Office Visit 10/22/2019 [facility] Nu Garrido, Z01.411 Encntr for nurse obgyn exam 9:30a (general) (routine) w abnormal findings N39.3 Stress incontinence (female) (male) N95.2 Postmenopausal atrophic vaginitis Assessments Date Code Description Provider 10/22/2019 Z01.411 Encounter for gynecological examination Nu Garrido MD (general) (routine) with abnormal findings 10/22/2019 N39.3 Stress incontinence (female) (male) Nu Garrido MD 10/22/2019 N95.2 Postmenopausal atrophic vaginitis Nu Garrido MD Plan of Treatment 10/22/2019 - Nu Garrido MDZ01.411 Encounter for gynecological examination (general) (routine) with abnormal findingsComments:Maintain routine exercise and healthy diet. Incorporate weight bearing exercise (walking/running with weights) to help prevent osteoporosis. Try to incorporate calcium into your regular diet. Take Vitamin D supplementation(600-800 IU/day) to assist absorption of the calcium. Call to schedule your yearly mammogram. Once it is scheduled call the office to let us know and we will send an order.Perform periodic breast exams to become familiar with your breast tissue so you are more likely to notice something abnormal. Return for annual exam in 1 year or earlier if concerns arise. Routine cervical cancer screening has changed. For low-risk women pap smears are no longer recommended after 65 years.N39.3 Stress incontinence (female) (male)Comments:Try to do routine Kegel exercises.N95.2 Postmenopausal atrophic vaginitis Functional Status Description No Information Available Mental Status Description No Information Available Referrals Description No Information Available
--- NOTE | 2019-11-24 12:29 | ED ---
HPI Chest Pain - HPI Summary HPI Summary: This patient is a 69 y/o female, with hx of IA, CAD, HTN, presenting to [facility] c/ o chest pain. Patient reports for the past 10 days she has been doing water aerobics in the pool and has been experiencing chest pain afterwards. She states usually after some rest her chest pain resolves, however, yesterday her chest pain persisted and it lasted longer than usual. Additionally yesterday patient became very short of breath and weak. Patient notes yesterday it took longer to recuperate. Patient saw her PCP, Dr. Newell, today. Dr. Newell spoke with Dr. Little who originally planned for the patient to get nitro patch and follow up with Dr. Little tomorrow. Dr. Newell also spoke with Dr. Kay, who performed cardiac cath on the patient for an IA, and recommended for the patient to come to the ED for blood work, admission and to rule out ACS. Patient currently denies any chest pain. Home Medications Medication Instructions Recorded Confirmed Type Rosuvastatin (NF) [Crestor (NF)] 10 mg PO DAILY #30 tab 10/08/19 11/24/19 Rx Alendronate (NF) [Fosamax (NF)] 70 mg PO WEEKLY 11/24/19 11/24/19 History Aspirin EC TAB* [Ecotrin EC Low 81 mg PO DAILY 11/24/19 11/24/19 History Dose 81 MG*] Calcium Carb/Vitamin D3/Vit K1 1 chw PO DAILY 11/24/19 11/24/19 History [Calcium + D] Cholecalciferol TAB* [Vitamin D 1,000 unit PO DAILY 11/24/19 11/24/19 History TAB*] Lisinopril TAB* [Prinivil TAB*] 20 mg PO BID 11/24/19 11/24/19 History Metoprolol Succinate XL TAB* 50 mg PO BID 11/24/19 11/24/19 History [Toprol XL TAB*] Multivitamins/Minerals TAB* 1 tab PO DAILY 11/24/19 11/24/19 History [Theragran/minerals TAB*] Nitroglycerin TAB 0.4 MG* 0.4 mg SL Q5M PRN 11/24/19 11/24/19 History Omeprazole (Nf) [Prilosec (NF)] 40 mg PO DAILY 11/24/19 11/24/19 History Ticagrelor* [Brilinta*] 90 mg PO BID 11/24/19 11/24/19 History Ubidecarenone [Co Q10] 200 mg PO DAILY 11/24/19 11/24/19 History ValACYclovir (*) [Valtrex 500 mg 500 mg PO DAILY PRN 11/24/19 11/24/19 History (*)] Venlafaxine EXT RELEASE CAP* 37.5 mg PO EVERY OTHER DAY 11/24/19 11/24/19 History [Effexor Xr CAP*] Venlafaxine EXT RELEASE CAP* 75 mg PO EVERY OTHER DAY 11/24/19 11/24/19 History [Effexor Xr CAP*] - History of Current Complaint Chief Complaint: EDChestPainROMI Hx Obtained From: Patient Onset/Duration: Started Days Ago Timing: Intermittent, Lasting Days Current Severity: None Pain Intensity: 0 Pain Scale Used: 0-10 Numeric Chest Pain Location: Diffuse Chest Pain Radiates: No Aggravating Factor(s): Nothing Alleviating Factor(s): Nothing Associated Signs and Symptoms: Positive: Chest Pain, Weakness, Shortness of Breath. Negative: Fever, Chills, Nausea, Vomiting - Additional Pertinent History Primary Care Physician: [id number] - Allergy/Home Medications Allergies/Adverse Reactions: Allergies Allergy/AdvReac Type Severity Reaction Status Date / Time ibuprofen Allergy Rash Verified 11/24/19 12:03 atorvastatin AdvReac Pain Verified 11/24/19 16:29 Home Medications: Home Medications Rosuvastatin (NF) [Crestor (NF)] 10 mg PO DAILY #30 tab 10/08/19 [Rx Confirmed 11/24/19] Alendronate (NF) [Fosamax (NF)] 70 mg PO WEEKLY 11/24/19 [History Confirmed ] Aspirin EC TAB* [Ecotrin EC Low Dose 81 MG*] 81 mg PO DAILY 11/24/19 [History Confirmed 11/24/19] Calcium Carb/Vitamin D3/Vit K1 [Calcium + D Soft Chewable Tab] 1 chw PO DAILY [History Confirmed 11/24/19] Cholecalciferol TAB* [Vitamin D TAB*] 1,000 unit PO DAILY 11/24/19 [History Confirmed 11/24/19] Lisinopril TAB* [Prinivil TAB 10 MG*] 20 mg PO BID 11/24/19 [History Confirmed 11/24/19] Metoprolol Succinate XL TAB* [Toprol XL TAB*] 50 mg PO BID 11/24/19 [History Confirmed 11/24/19] Multivitamins/Minerals TAB* [Theragran/minerals TAB*] 1 tab PO DAILY 11/24/19 [ History Confirmed 11/24/19] Nitroglycerin TAB 0.4 MG* 0.4 mg SL Q5M PRN 11/24/19 [History Confirmed 11/24/19 ] Omeprazole (Nf) [Prilosec (NF)] 40 mg PO DAILY 11/24/19 [History Confirmed 11/24] Ticagrelor* [Brilinta 90 MG*] 90 mg PO BID 11/24/19 [History Confirmed 11/24/19] Ubidecarenone [Co Q10] 200 mg PO DAILY 11/24/19 [History Confirmed 11/24/19] ValACYclovir (*) [Valtrex 500 mg (*)] 500 mg PO DAILY PRN 11/24/19 [History Confirmed 11/24/19] Venlafaxine EXT RELEASE CAP* [Effexor Xr CAP*] 37.5 mg PO EVERY OTHER DAY [History Confirmed 11/24/19] Venlafaxine EXT RELEASE CAP* [Effexor Xr CAP*] 75 mg PO EVERY OTHER DAY [History Confirmed 11/24/19] Nitroglycerin 0.2 MG/HR PATCH* [Nitroglycerin 5 MG PATCH*] 1 patch TRANSDERM DAILY@0900 #30 patch 11/25/19 [Rx] PMH/Surg Hx/FS Hx/Imm Hx Endocrine/Hematology History: Denies: Hx Diabetes, Hx Thyroid Disease Cardiovascular History: Reports: Hx Angina, Hx Coronary Artery Disease, Hx Hypercholesterolemia, Hx Hypertension, Hx Myocardial Infarction Denies: Hx Pacemaker/ICD, Hx Valvular Heart Disease Respiratory History: Denies: Hx Asthma, Hx Chronic Obstructive Pulmonary Disease (COPD) Musculoskeletal History: Reports: Hx Arthritis - GENERALIZED OSTEO, Hx Rheumatoid Arthritis, Hx Osteoporosis, Other Musculoskeletal History Denies: Hx Scoliosis Sensory History: Reports: Hx Contacts or Glasses Denies: Hx Hearing Aid Opthamlomology History: Reports: Hx Contacts or Glasses Neurological History: Denies: Hx Headaches, Other Neuro Impairments/Disorders Psychiatric History: Reports: Hx Depression - ON MEDS PT STATES CONTROLLED - Cancer History Hx Chemotherapy: No Hx Radiation Therapy: No - Surgical History Surgical History: Yes Surgery Procedure, Year, and Place: RIGHT SHOULDER REPAIR 1997 [facility] [place] DR S[place], hysterectomy 1991, appendix 1972. LAPAROSCOPY 1988. AP REPAIR DR LACEY 2002 [facility] [place] Hx Anesthesia Reactions: No Infectious Disease History: No Infectious Disease History: Denies: Hx Hepatitis, Traveled Outside the [place] in Last 30 Days - Family History Known Family History: Positive: Hypertension - Social History Alcohol Use: Daily Alcohol Amount: WINE Hx Substance Use: No Substance Use Type: Reports: None Hx Tobacco Use: No Smoking Status (MU): Never Smoked Tobacco Have You Smoked in the Last Year: No Review of Systems Negative: Fever, Chills Positive: Chest Pain Positive: Shortness Of Breath Gastrointestinal: Negative Genitourinary: Negative Positive: Weakness All Other Systems Reviewed And Are Negative: Yes Physical Exam - Summary Physical Exam Summary: VITAL SIGNS: Reviewed. GENERAL: Patient is a well-developed and nourished female who is lying comfortable in the stretcher. Patient is not in any acute respiratory distress. HEAD AND FACE: No signs of trauma. No ecchymosis, hematomas or skull depressions. No sinus tenderness. EYES: PERRLA, EOMI x 2, No injected conjunctiva, no nystagmus. EARS: Hearing grossly intact. Ear canals and tympanic membranes are within normal limits. MOUTH: Oropharynx within normal limits. NECK: Supple, trachea is midline, no adenopathy, no JVD, no carotid bruit, no c- spine tenderness, neck with full ROM. CHEST: Symmetric, no tenderness at palpation LUNGS: Clear to auscultation bilaterally. No wheezing or crackles. CVS: Regular rate and rhythm, S1 and S2 present, no murmurs or gallops appreciated. ABDOMEN: Soft, non-tender. No signs of distention. No rebound no guarding, and no masses palpated. Bowel sounds are normal. MSK: FROM in all major joints, no edema, no cyanosis or clubbing. NEURO: Alert and oriented x 3. No acute neurological deficits. Speech is normal and follows commands. SKIN: Dry and warm. Triage Information Reviewed: Yes Vital Signs On Initial Exam: Initial Vitals Temp Pulse Resp BP Pulse Ox 98.7 F 72 18 171/86 98 11/24/19 12:00 11/24/19 12:00 11/24/19 12:00 11/24/19 12:00 11/24/19 12:00 Vital Signs Reviewed: Yes Procedures - Sedation Patient Received Moderate/Deep Sedation with Procedure: No Diagnostics - Vital Signs Vital Signs Temp Pulse Resp BP Pulse Ox 11/24/19 12:00 98.7 F 72 18 171/86 98 - Laboratory Lab Results: Lab Results 11/24/19 Range/Units 12:10 WBC 7.1 (3.5-10.8) 10^3/uL RBC 4.20 (3.70-4.87) 10^6 /uL Hgb 12.9 (12.0-16.0) g/dL Hct 37 (35-47) % MCV 89 (80-97) fL MCH 31 (27-31) pg MCHC 35 (31-36) g/dL RDW 13 (10-15) % Plt Count 228 (150-450) 10^3/uL MPV 8.2 (7.4-10.4) fL Neut % (Auto) 69.5 % Lymph % (Auto) 20.2 % [place] % (Auto) 6.3 % Eos % (Auto) 3.0 % Baso % (Auto) 1.0 % Absolute Neuts (auto) 4.9 (1.5-7.7) 10^3/ul Absolute Lymphs (auto) 1.4 (1.0-4.8) 10^3/ul Absolute Monos (auto) 0.4 (0-0.8) 10^3/ul Absolute Eos (auto) 0.2 (0-0.6) 10^3/ul Absolute Basos (auto) 0.1 (0-0.2) 10^3/ul Absolute Nucleated RBC 0.0 10^3/ul Nucleated RBC % 0.0 Result Diagrams: 11/25/19 04:48 11/25/19 04:48 Lab Statement: Any lab studies that have been ordered have been reviewed, and results considered in the medical decision making process. - Radiology Chest XR Radiology Interpretation Completed By: Radiologist Summary of Radiographic Findings: IMPRESSION: No acute cardiopulmonary process by radiograph. Dr. Ricks has reviewed this report. - EKG 12:05 Cardiac Rate: NL - at 73 bpm EKG Rhythm: Sinus Rhythm EKG Comparison: No Significant Change - similar to previous on 08/06/19. Summary of EKG Findings: EKG at 1205 shows normal sinus rhythm at [address] elevatoins. Similar to previous on 08/06/19. This EKG was interpreted and reviewed by ED physician. Chest Pain Course/Dx - Course Assessment/Plan: This patient is a 69 y/[facility] female [facility] [facility]. Patient reports for the past 10 days she has been doing water aerobics in the pool and has been experiencing chest pain afterwards. She states usually after some rest her chest pain resolves, however, yesterday her chest pain persisted and was longer than usual. Additionally, yesterday the patient became very short of breath and weak. Patient notes yesterday it took longer to recuperate. Patient saw her PCP, Dr. Newell, today. Dr. Newell spoke with Dr. Little who originally planned for the patient to get nitro patch and Dr. Little would see the patient tomorrow. Dr. Newell spoke with Dr. Kay, who did a cardiac cath on the patient for an IA, and recommended for the patient to come to the ED for blood work, admission and to rule out ACS. Blood work without any significant abnormality. EKG is unchanged from previous EKG and has no ST elevations. Chest x-ray impression: No acute cardiopulmonary process. The patient continues to be asymptomatic. As per recommendation from Dr. Newell and Dr. Kay the patient will be admitted to the hospitalist services. I discussed my physical exam and test results with Dr. Taylor from the hospitalist services and he agrees to admit the patient to his services. The patient is hemodynamically stable, alert and oriented x 3. - Diagnoses Provider Diagnoses: Stable angina - Provider Notifications Discussed Care Of Patient With: Alfred Taylor - hospitalist Time Discussed With Above Provider: 13:23 Instructed by Provider To: Admit As Inpatient Discharge ED - Sign-Out/Discharge Documenting (check all that apply): Patient Departure - Admit to [facility] [facility] - Discharge Plan Condition: Stable Disposition: ADMITTED TO [facility] - Billing Disposition and Condition Condition: STABLE Disposition: Admitted to [facility] - Attestation Statements Document Initiated by Scribe: Yes Documenting Scribe: Renetta Block Provider For Whom Scribe is Documenting (Include Credential): Carlos Ricks MD Scribe Attestation: I, Renetta Block, scribed for Carlos Ricks MD on 11/26/19 at 0754. Scribe Documentation Reviewed: Yes Provider Attestation: The documentation as recorded by the Renetta banda accurately reflects the service I personally performed and the decisions made by me, Carlos Ricks MD Status of Scribe Document: Viewed
[2019-11-24 12:49] LABS: Albumin 4.7 g/dL (3.2-5.2); Albumin/Globulin Ratio 1.9 (1-3); CKMB ng/mL 1.5 ng/mL (0.6-6.3); Calcium 9.9 mg/dL (8.6-10.3); EGFR African American 90.2 (>60); EGFR Non-African American 74.5 (>60); Globulin 2.5 g/dL (2-4); Magnesium 2.1 mg/dL (1.9-2.7); Potassium 3.6 mmol/L (3.5-5.0); Total Bilirubin 0.5 mg/dL (0.2-1.0); Total Protein 7.2 g/dL (6.4-8.9)
[2019-11-24 13:53] LABS: TSH (Thyroid Stimulating Horm) 2.45 mcIU/mL (0.34-5.60)
[2019-11-24] MEDS ORDERED: Acetaminophen TAB* 325 MG PO PRN (15:00)
[2019-11-24] MEDS ORDERED: Enoxaparin(*) 40 MG/0.4 ML SYR SUBCUT SCH (18:00)
--- NOTE | 2019-11-24 21:03 | HP ---
CC: Dr. Newell; Dr. Little * HISTORY AND PHYSICAL: DATE OF ADMISSION: 11/24/19 PROVIDER: Sharon Deleon NP PRIMARY CARE PROVIDER: Dr. Newell. ATTENDING PHYSICIAN WHILE IN THE HOSPITAL: Dr. Alfred Taylor * (dictated by Sharon Deleon NP). CHIEF COMPLAINT: Chest pain. HISTORY OF PRESENT ILLNESS: Ms. Jiménez is a 69-year-old female with past medical history significant for hypertension, acid reflux, osteoarthritis, osteoporosis, anxiety, depression, coronary artery disease, systolic heart failure, who presented to the emergency room with complaints of chest pain. The patient reports that the beginning of October, she had a respiratory illness but her symptoms resolved. She reports that she went to [place] on and while in [place], she remained active in water aerobics. She reports she did 6 sessions of water aerobics. Initially, she had some slight shortness of breath. The patient reports that she participated in water aerobics yesterday , 11/23/19, and towards the end of that session of water aerobics, she became short of breath and developed chest pain in the center of her chest that did not radiate anywhere. The patient reports that the chest pain and shortness of breath subsided with rest. The patient does report that after water aerobics, she walked back to her sisters and took her blood pressure and noted that her pulse was 135. She does report that her pulse rate remained elevated for approximately 30 minutes after her water aerobics session. The patient reports that after this subsided, she has had no further chest pain. She denies any chest pain with walking upstairs or walking or any physical activity. She denies any associated nausea or vomiting with the chest pain. She denies any nausea or lightheadedness. She denies any cough, hemoptysis, shortness of breath. No diarrhea, abdominal pain. Denies any gross hematuria, dysuria, visual complaints, facial arthrosis, myalgias, rashes, lesions, open sores, psychosis, or anxiety. Due to the patient's reports today, she went and saw Dr. Newell. She mentioned her episode of chest pain while doing water aerobics. Dr. Newell called Dr. Little who had recommended outpatient treatment. Dr. Newell then contacted Dr. Kay who recommended the patient come to the emergency room and be evaluated for unstable angina, and admission for possible cardiac catheterization. While in the emergency room, the patient had routine lab work drawn. She had an EKG that showed no significant changes. She is currently chest pain free and asymptomatic. Due to the patient's complaints of chest pain, Hospital Medicine was asked to see and evaluate her for admission. PAST MEDICAL HISTORY: Significant for: 1. Coronary artery disease. 2. Depression. 3. Anxiety. 4. Hypertension. 5. Osteoporosis. 6. Osteoarthritis. 7. Acid reflux. 8. History of systolic heart failure. PAST SURGICAL HISTORY: 1. Shoulder surgery. 2. Appendectomy. 3. Hysterectomy. 4. Oophorectomy. 5. Right toe fusion. 6. Cardiac catheterization in February 2019 with stent placement in the LAD and first diagonal. HOME MEDICATIONS: Include: 1. CoQ10 200 mg once daily. 2. Metoprolol 50 mg twice daily. 3. Lisinopril 20 mg twice daily. 4. Venlafaxine HCl ER 37.5 alternating with 75 p.o. daily. 5. Fosamax 70 mg p.o. weekly on Sundays. 6. Valtrex 500 mg 1 tablet twice daily for 5 days as needed. 7. Aspirin 81 mg p.o. daily. 8. Brilinta 90 mg p.o. b.i.d. 9. Vitamin D 2000 units 1 cap p.o. daily. 10. Multivitamin 1 tablet p.o. daily. 11. Omeprazole 40 mg p.o. daily. ALLERGIES: To IBUPROFEN. FAMILY HISTORY: Father had a CABG at the age of 72, mother from lymphoma. No reported history of diabetes. SOCIAL HISTORY: The patient denies any smoking, alcohol, or illicit drug use. Surrogate decision maker in the event she is unable to make her own decisions is her . She is a full code. REVIEW OF SYSTEMS: A 14-point review of systems was completed. All pertinent positives were mentioned in the HPI. PHYSICAL EXAMINATION GENERAL: At this time, Ms. Jiménez is alert and oriented, resting on the stretcher in the emergency room. She is in no acute distress. VITAL SIGNS: Blood pressure 124/77, heart rate 72, respirations 16, O2 saturation 98%, temperature was 98.7. HEENT: Head is atraumatic, normocephalic. Eyes: EOMs are intact. Sclerae anicteric and not pale. Oral mucosa is moist. NECK: Supple. LUNGS: Clear to auscultation bilaterally. No wheezes, rales, or rhonchi. CARDIAC: S1, S2. No murmurs, rubs, or gallops. ABDOMEN: Soft and nontender. Bowel sounds are present x4. EXTREMITIES: She is able to move all 4 extremities. There is no clubbing or cyanosis. NEUROLOGIC: She is awake, alert, oriented x3. Speech is clear and thought process is intact. SKIN: Intact. DIAGNOSTIC STUDIES/LAB DATA: WBCs are 7.1, RBCs 4.20, hemoglobin 12.9, hematocrit 37, platelet count 228. Sodium 141, potassium 3.6, chloride 103, carbon dioxide was 29, anion gap was 9, BUN was 20, creatinine 0.77, glucose was 118, calcium 9.9, magnesium was 2.1. Total bilirubin 0.50, ASTs were 25, ALTs were 34, alkaline phosphatase was 54. CK was 55. Troponin was 0.00. Chest x-ray showed no acute cardiopulmonary process. She had an electrocardiogram, which showed sinus rhythm at a rate of 73, T-wave inversions in V1, V2, V3, and slight ST elevation in lead II. ASSESSMENT AND PLAN: Ms. Jiménez is a 69-year-old female with past medical history significant for coronary artery disease, status post cardiac stents in February 2019; hypertension; depression; anxiety; systolic heart failure; gastroesophageal reflux disease; osteoarthritis; osteoporosis, who presented to the emergency room with complaints of chest pain yesterday. She will be admitted under observation for: 1. Chest pain. The patient is experiencing chest pain. The patient will be brought in to rule out unstable angina. The patient does report that she had chest pain associated with physical activity of doing water aerobics. On Friday, the patient has had no further episodes of chest pain. She has been able to carry out her daily activities without any shortness of breath or chest pain. Due to the recommendations of her primary care provider, the patient presented to the emergency room for evaluation of chest pain. I did speak to Cardiology, Dr. Zavala, who will see the patient in consultation. The patient' s initial troponin is 0.00. We will continue to trend her troponins. I will place her on nitroglycerin patch starting tomorrow. She will continue on aspirin and Brilinta as previously prescribed as well as rosuvastatin and metoprolol 50 mg b.i.d. 2. Depression and anxiety. She will continue on Effexor as previously prescribed. 3. History of coronary artery disease. She will continue on Brilinta, Crestor , metoprolol, and aspirin as previously prescribed. 4. FEN: She can have a heart-healthy, caffeine okay diet. 5. Code status: She is a full code. 6. DVT prophylaxis: I will place her on Lovenox subcu. TIME SPENT: Time spent on this admission was 60 minutes, greater than half that time was spent at the bedside reviewing events leading thus far to her hospitalization, performing physical exam, and reviewing my plan of care. I have discussed this with my attending, Dr. Alfred Taylor; he is in agreement with my plan. SHARON DELEON, J[place] [id number]/[facility] #: [id number] ANA
[2019-11-24] MEDS: Ticagrelor* 90 MG TAB PO SCH (21:33)
[2019-11-24] MEDS: Metoprolol Succinate XL TAB* 50 MG PO SCH (21:33)
--- NOTE | 2019-11-25 00:39 | CONS ---
CC: Dr. Little; Dr. Newell * CARDIOLOGY CONSULTATION REPORT: DATE OF CONSULT: 11/24/19 REASON FOR CONSULTATION: Chest pain and abnormal stress test. HISTORY OF PRESENT ILLNESS: Ms. Jiménez is a 69-year-old woman with a past history of coronary artery disease who suffered a ST-elevation [place] 03/06/19 and underwent stenting to the proximal LAD with a drug-eluting stent. The patient underwent a stress test in September of this year, exercise Myoview that showed a large fixed defect in the anterior wall and ejection fraction of 49%. In September, the patient was free of chest pain and she went to [place], was doing water aerobics daily, would get winded with some of the certain exertion during this, and then yesterday the last day of her trip she developed substernal chest discomfort radiating a bit to the left side that cleared with rest. The patient's prior angina with chest pain radiating to the neck, jaw, and bilateral arms and the day before her myocardial infarction she had pain in the posterior neck/back. The patient thinks the pain she had yesterday with water aerobics is reminiscent , although not as strong as her anginal pain. The patient is chest pain free now. The patient had a regularly scheduled appointment with her primary care physician, Dr. Newell today, who after discussion with Dr. Little and Dr. Kay had the patient presented to the emergency room for further workup. PAST MEDICAL HISTORY: 1. Coronary artery disease, status post stent to the LAD February 2018. 2. Hypertension. 3. Osteoarthritis. 4. Reflux. 5. Anxiety and depression. 6. Osteoporosis. PAST SURGICAL HISTORY: 1. LAD stent February 2019. 2. Shoulder surgery. 3. Appendectomy. 4. Hysterectomy. 5. Oophorectomy. 6. Toe fusion. OUTPATIENT MEDICATIONS: Included: 1. Metoprolol 50 mg b.i.d. 2. Lisinopril 20 mg b.i.d. 3. Aspirin 81 mg a day. 4. Brilinta 90 mg b.i.d. 5. Coenzyme Q. 6. Venlafaxine HCL 37.5 alternating 75 mg a day. 7. Fosamax 70 mg weekly. 7. Valtrex 500 mg b.i.d. x5 days p.r.n. 8. Vitamin D 2000 units daily. 9. Multi-Vites. 10. Omeprazole 40 mg a day. ALLERGIES: Include IBUPROFEN. FAMILY HISTORY: Positive for coronary artery disease. Her father had bypass at age 72. Mother from lymphoma. SOCIAL HISTORY: The patient is a nonsmoker. No history of recreational drug use or significant alcohol intake. REVIEW OF SYSTEMS: Negative for recent changes in medications. No missed meds. No [id number] medications. Negative for problems during the airport travel back. Negative for orthopnea, PND. She denied any associated nausea or diaphoresis with the chest pressure event. No recent fevers, chills, sweats. No coughing, hematuria, dysuria, or diarrhea. All other 14-point review of systems was negative. PHYSICAL EXAM: The patient is 5 feet 4 inches, weighs 125 pounds with a BMI of 21.5. Vital Signs: Blood pressure 143/81, pulse was 75, afebrile, respiratory rate 16, oxygen saturation 99% on room air. General appearance: Petite, somewhat older woman, lying in bed, appears in no distress, smiling, happy, energetic appearing. Psychologically, pleasant and cooperative. Neurologically , awake, alert, oriented to person, place, and time. Cranial nerves II through XII intact. Grossly normal sensory and motor function in the upper and lower extremities on that exam. Skin: Age-appropriate changes, warm, dry without appreciable cyanosis or rashes. HEENT: Mucous membranes moist. Neck: Without increased JVP. Breath sounds clear with good effort. No wheezes, rales , or rhonchi. Coronary: S1, S2 regular without murmurs or rubs. Abdomen: Active bowel sounds, soft, and nontender. Lower extremities are free of edema. Strong dorsalis pedis and posterior tibial pulses. DIAGNOSTIC STUDIES/LAB DATA: The treadmill portion of her exercise stress test 10/08/19 showed she was able to achieve a work load of 10 METs. Study was limited by leg fatigue and occasional PVCs. No sustained dysrhythmias. Her resting blood pressure was 135/78, peak blood pressure at stage 3 of 207/91. The nuclear portion of the study was reviewed by myself personally and shows a large fixed defect of the anterior wall and ejection fraction of 49%, no reversibility. The gated portion of the study shows a small dyskinetic area of the apex and hypokinesis in the apex. The base of the heart shows vigorous contractility. Ecto June 2019: EF 45%, apical wall motion abnormality. A 12-lead ECG in the hospital today at noon shows normal sinus rhythm 73 beats per minute, QRS axis +60, normal AV and IV conduction time. She has anterior Qs V1 and V2. Subtle ST elevation and inverted T waves V1 through V3. Suggestive of an old anterior septal AZ. When this is compared with her EKG of 08/06/19, I do not appreciate significant changes. Chest x-ray done today showed no acute pulmonary disease. Cardiac catheterization from 03/08/19 showed near occlusion of the proximal LAD and small septal ground surveillance systems operator had thrombus and slow flow. First diagonal had tubular 80% occlusion, ejection fraction 30%. Elevated left ventricular end- diastolic pressure at 16 to 27. Circumflex dominant with no significant stenosis. The right coronary artery was codominant, proximal 30% occlusion. Labs today: White count 7.1, hematocrit 37, platelets 228. Sodium 141, potassium 3.6, chloride 103, bicarb 29, BUN 20, creatinine 0.77, glucose 118. AST 25, ALT 34. Troponin #1 0.00, troponin #2 0.00. BNP of 133. TSH 2.45. IMPRESSION AND PLAN: In summary, Pita Jiménez is a 69-year-old woman who presented in February of [address]-elevation myocardial infarction due to a tight proximal left anterior descending lesion, who underwent complex stenting which was successful and she was left on medical management with a 30% right coronary artery occlusion and an 80% diagonal branch occlusion. The patient has had exertional dyspnea on water aerobics in [place] and then yesterday had her shortness of breath and substernal chest pressure. For the patient's pain, there would be a large differential including crescendo angina, mild congestive heart failure, and noncardiac pain such as reflux. The concern is her recent stress test showing a large fixed defect that seems out of proportion to the wall motion abnormality noted. After discussion with Dr. Little and Dr. Kay as well as discussions with the patient, the current plan is to proceed with diagnostic catheterization to ensure that there has been no stent restenosis contributing to the combination of her symptoms of exertional dyspnea, chest discomfort, and findings in her nuclear stress test of a large fixed defect in the distribution of the LAD. Additional recommendations will be made pending the results of the stress test. Other than holding Eliquis, we will continue her current medications. [id number]/[facility] #: [id number] ANA
[2019-11-25 05:01] LABS: ABS Eosinophils 0.2 10^3/ul (0-0.6); ABS Lymphocytes 1.7 10^3/ul (1.0-4.8); ABS Monocytes 0.4 10^3/ul (0-0.8); ABS Neutrophils 3.6 10^3/ul (1.5-7.7); Eosinophil % 3.9 %; Hematocrit 34 % (35-47); Hemoglobin 11.9 g/dL (12.0-16.0); Lymphocyte % 28.2 %; Mean Corpuscular HGB Conc 35 g/dL (31-36); Mean Corpuscular Hemoglobin 31 pg (27-31); Mean Corpuscular Volume 89 fL (80-97); Mean Platelet Volume 8.1 fL (7.4-10.4); Nucleated Red Blood Cells % 0.1; Platelet Count 193 10^3/uL (150-450); Red Blood Count 3.87 10^6 /uL (3.70-4.87); Red Cell Distribution Width 13 % (10-15); White Blood Count 5.9 10^3/uL (3.5-10.8)
[2019-11-25 05:17] LABS: Calcium 9.1 mg/dL (8.6-10.3); Potassium 3.9 mmol/L (3.5-5.0)
[2019-11-25 05:22] LABS: BUN/Creatinine Ratio 26.4 (8-20); EGFR African American 97.5 (>60); EGFR Non-African American 80.6 (>60)
[2019-11-25] MEDS ORDERED: Pantoprazole TAB * 40 MG TAB PO SCH (09:00)
[2019-11-25] MEDS ORDERED: Aspirin EC TAB* 81 MG TAB.EC PO SCH (09:00)
[2019-11-25] MEDS ORDERED: Multivitamins/Minerals TAB PO SCH (09:00)
[2019-11-25] MEDS ORDERED: Nitroglycerin 0.2 MG/HR PATCH* (5 MG) TRANSDERM SCH (09:00)
[2019-11-25] MEDS ORDERED: Diazepam TAB(*) 5 MG PO PRN (09:03)
[2019-11-25] MEDS ORDERED: diPHENhydraMINE PO* 25 MG PO PRN (09:03)
[2019-11-25] MEDS ORDERED: NS 0.9% 1000 ML** 1,000 ML IV SCH ×2 (09:15→12:15)
[2019-11-25] MEDS: Ticagrelor* 90 MG TAB PO SCH (09:30)
[2019-11-25] MEDS: Metoprolol Succinate XL TAB* 50 MG PO SCH (09:31)
--- NOTE | 2019-11-25 10:03 | PN ---
Subjective Date of Service: 11/25/19 Interval History: Pt seen this morning sitting up in bed, in NAD. Very pleasant. Denies any CP, SOB, N/V/D, unusual numbness/tingling, visual changes. States that she had a mild headache this morning but that it is no longer present. States that she has not any further episodes of CP since her episode on 11/23. 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[employer] Enoxaparin Sodium (Lovenox(*)) 40 mg SUBCUT Q24H [facility] Last Admin: 11/24/19 18:11 Dose: 40 mg Sodium Chloride (Ns 0.9% 1000 Ml) 1,000 mls @ 100 mls/hr IV .per rate [facility] Metoprolol Succinate (Toprol Xl Tab*) 50 mg PO BID [facility] Last Admin: 11/25/19 09:31 Dose: 50 mg Multivitamins/Minerals (Theragran/Minerals Tab*) 1 tab PO DAILY [facility] Last Admin: 11/25/19 09:31 Dose: 1 tab Nitroglycerin (Nitroglycerin 5 Mg Patch*) 1 patch TRANSDERM DAILY@0900 [facility] Last Admin: 11/25/19 09:31 Dose: 1 patch Pantoprazole Sodium (Protonix Tab*) 40 mg PO DAILY [facility] Last Admin: 11/25/19 09:30 Dose: 40 mg Pharmacy Profile Note (Nitro Patch/Oint Remove*) 1 note PATCH OFF 2100 [facility] Rosuvastatin Calcium (Crestor (Nf)) 10 mg PO DAILY [facility]; Protocol Last Admin: 11/25/19 09:31 Dose: 10 mg Ticagrelor (Brilinta*) 90 mg PO BID [facility] Last Admin: 11/25/19 09:30 Dose: 90 mg Venlafaxine HCl (Effexor Xr Cap*) 37.5 mg PO EVERY OTHER DAY [facility] Venlafaxine HCl (Effexor Xr Cap*) 75 mg PO EVERY OTHER DAY [facility] Vital Signs - 8 hr 11/25/19 11/25/19 11/25/19 03:15 07:25 09:25 Temperature 97.5 F 96.7 F Pulse Rate 79 78 Respiratory 16 16 Rate Blood Pressure 103/56 102/58 108/56 (mmHg) O2 Sat by Pulse 100 96 Oximetry Oxygen Devices in Use Now: None Appearance: sitting up in bed comfortably, NAD, very pleasant Eyes: No Scleral Icterus, - - PERRL Ears/Nose/Mouth/Throat: Clear Oropharnyx, Mucous Membranes Moist Respiratory: Symmetrical Chest Expansion and Respiratory Effort, Clear to Auscultation Cardiovascular: RRR Abdominal: NL Sounds; No Tenderness; No Distention Extremities: No Edema Skin: - - warm, dry, intact Neurological: Alert and Oriented x 3 Nutrition: Taking PO's - clears prior to cardiac cath Result Diagrams: 11/25/19 04:48 11/25/19 04:48 Additional Lab and Data: Lab Results 11/24/19 Range/Units 12:10 WBC 7.1 (3.5-10.8) 10^3/uL RBC 4.20 (3.70-4.87) 10^6 /uL Hgb 12.9 (12.0-16.0) g/dL Hct 37 (35-47) % MCV 89 (80-97) fL MCH 31 (27-31) pg MCHC 35 (31-36) g/dL RDW 13 (10-15) % Plt Count 228 (150-450) 10^3/uL MPV 8.2 (7.4-10.4) fL Neut % (Auto) 69.5 % Lymph % (Auto) 20.2 % [place] % (Auto) 6.3 % Eos % (Auto) 3.0 % Baso % (Auto) 1.0 % Absolute Neuts (auto) 4.9 (1.5-7.7) 10^3/ul Absolute Lymphs (auto) 1.4 (1.0-4.8) 10^3/ul Absolute Monos (auto) 0.4 (0-0.8) 10^3/ul Absolute Eos (auto) 0.2 (0-0.6) 10^3/ul Absolute Basos (auto) 0.1 (0-0.2) 10^3/ul Absolute Nucleated RBC 0.0 10^3/ul Nucleated RBC % 0.0 Assess/Plan/Problems-Billing Assessment: is a 69yo F with pmHx significant for CAD, systolic HF, HTN, cardiac stents X2. She had an episode of CP with an elevated HR on 11/23 after doing water aerobics that lasted for approximately 30 min. She followed up with her PCP on 11/24 who ultimately sent her to the ED for evaluation. - Patient Problems (1) Chest pain Status: Acute Code(s): R07.9 - CHEST PAIN, UNSPECIFIED SNOMED Code(s): 46774822 Comment: Episode of CP, SOB which resolved after a few minutes, and elevated HR after water aerobics that lasted for approximately 30 minutes on 11/23. No episodes of CP or SOB since. EKG SR at 73 bpm with no appreciable changes from a 07/2019 EKG per . Hx STEMI in 02/2019. Stress test in 09/2019 that showed large fixed defect in anterior wall and an EF of 49%. Seen on 11/24 by . - Cardiac catheterization scheduled for today 11/25 - Resuming usual medications per cardiology recommendations (2) CAD (coronary artery disease) Status: Acute Code(s): I25.10 - ATHSCL HEART DISEASE OF [place] CORONARY ARTERY W/O ANG PCTRS SNOMED Code(s): 42145807 Comment: Again, continuing usual medications - Brilinta, crestor, metoprolol, ASA (3) Hx of essential hypertension Status: Acute Code(s): Z86.79 - PERSONAL HISTORY OF OTHER DISEASES OF THE CIRCULATORY SYSTEM SNOMED Code(s): 236379797 Comment: BPs have been stable, a little soft at times. Continue with usual medications as well as meds recommended by cardiology such as nitro patch. Again , meds affecting BP will be given/held per cardiology at this time as pt is awaiting cardiac cath procedure. (4) History of depression Status: Acute Code(s): Z86.59 - PERSONAL HISTORY OF OTHER MENTAL AND BEHAVIORAL DISORDERS SNOMED Code(s): 109486464 Comment: - Continue effexor (5) History of anxiety Status: Acute Code(s): Z86.59 - PERSONAL HISTORY OF OTHER MENTAL AND BEHAVIORAL DISORDERS SNOMED Code(s): 307321432 Comment: - Continue effexor (6) DVT prophylaxis Status: Acute Code(s): Z29.9 - ENCOUNTER FOR PROPHYLACTIC MEASURES, UNSPECIFIED SNOMED Code(s): 503693049 Comment: - Lovenox Status and Disposition: Status: stable Disposition: Telemetry unit Attending: Alfred Taylor
[2019-11-25] MEDS ORDERED: VERAPAMIL 2.5 MG/ML 2 ML VIAL ** 5 mg/2 ml ONE (11:05)
[2019-11-25] MEDS ORDERED: fentaNYL* 50 MCG/ML 2 ML VIAL (100 MCG VIAL) ONE (11:05)
[2019-11-25] MEDS ORDERED: Midazolam* 1 MG/ML 5 ML VIAL (5 MG) ONE (11:05)
[2019-11-25] MEDS ORDERED: Heparin(*) 1000 UNIT/ML 10 ML VIAL CATH LAB IV ONE (11:05)
[2019-11-25] MEDS ORDERED: Iohexol 350 (CONTRAST) 200 ML MDV IV ONE ×2 (11:06→11:50)
[2019-11-25] MEDS ORDERED: nitroGLYCERIN DRIP* 25,000 MCG/250 ML BTL ONE (11:06)
[2019-11-25] MEDS ORDERED: Lidocaine 1% INJ* 10 MG/ML 30 ML SDV ONE (11:06)
[2019-11-25] MEDS ORDERED: Heparin 2 UNITS/ML IVPREMIX* 2,000 ML IV ONE (11:06)
--- NOTE | 2019-11-25 14:15 | CATH ---
CC: Dr. Edin Newell; Dr. Hernesto Little, [facility] * CARDIAC CATHETERIZATION REPORT: DATE OF PROCEDURE: 11/25/19 - ROOM #448 INDICATION FOR THE PROCEDURE: Asked by Dr. Cami Zavala (weapons system instrument mechanic in the hospital) to perform diagnostic cardiac catheterization for recurrent symptomatology with a prior history of anterior wall presentation less than a year ago with two stents placed to the proximal to osteal LAD. PROCEDURE: Coronary arteriography, left heart catheterization, left ventriculography. CONSENT: The patient was interviewed and examined on the floor of the hospital where the risks and benefits were explained. She understood them and wished to proceed. APPROACH UTILIZED: The right radial artery was assessed for size and found to be acceptable and as such this was the approach taken. PRECARDIAC CATHETERIZATION LABORATORY RESULTS: Hemoglobin and hematocrit of 11.9 and 34 with a platelet count of 193,000. BUN 19, creatinine 0.72. Sodium 141, potassium 3.9, chloride 106, bicarb 29. Troponin 0.01. EQUIPMENT UTILIZED: 1. Right radial artery sheath was a 6-Vincentian Glidesheath Slender. 2. Diagnostic coronary catheter was a TIG4 curved 5-Vincentian catheter. 3. Diagnostic guidewire was a 260 length Carrillo curved guidewire. 4. The left heart catheterization catheter was a 5-Vincentian PIG short radial catheter. 5. The closure device utilized was a Vasc Band regular length. MEDICATIONS GIVEN DURING THE PROCEDURE: A radial artery cocktail including 3000 units of heparin, 300 mcg of nitroglycerin, and 3 mg of verapamil. 1% Xylocaine for local anesthesia. The patient had already been given her aspirin and Brilinta this morning. She also received Benadryl and Valium pre cardiac catheterization. DESCRIPTION OF PROCEDURE: The patient was brought to the cardiovascular laboratory where a formal time-out was performed. She was prepped and draped in sterile fashion. The right radial artery area was anesthetized with 1% lidocaine. The right radial artery was cannulated under ultrasound guidance and the sheath was placed. Coronary arteriography was performed. Following this, this catheter was exchanged using an exchange length catheter to the pigtail catheter. Pressures were recorded and a catheter was passed into the left ventricle and left ventriculography was formed utilizing a total of 24 cc of Omnipaque dye at a rate of 12 cc per second. The catheter was then pulled back across the aortic valve to recheck gradient. At the end of the case, the catheter and sheath were removed and hemostasis was obtained with a Vasc Band. The reverse Barbeau was a B. The total contrast used was 80 cc of Omnipaque dye. The radiation exposure included 4.8 minutes of fluoro time. The air kerma radiation was 352 mGy. The DAP radiation was 2044 microgray per meter squared. RESULTS: HEMODYNAMIC DATA: Left heart catheterization revealed central aortic pressure 122/62 with a mean of 89. Left ventricular pressure 125 over left ventricular end- diastolic pressure of 15 to 17. LEFT VENTRICULOGRAPHY: Performed in the ROJAS projection revealed normal contractility of the proximal with minimal mid inferior wall hypokinesis. Of note, the distal inferior wall contracted normally as did the inferior apical region. A small portion of the distal anterior apical region appears to move with only mild hypokinesis. The mid to distal anterior anterolateral wall was severely hypokinetic. The proximal to mid anterior wall has mild hypokinesis. The overall ejection fraction appears to be approximately 45%. There is no significant mitral regurgitation. CORONARY ARTERIOGRAPHY: A. Left coronary artery: 1. Left main - widely patent. 2. Left anterior descending artery. The left anterior descending artery supplied a very thin posteriorly directed first diagonal branch. Past this point and past the stent in the proximal LAD, the artery bifurcated into a large bifurcating diagonal branch, the lateral portion of which was posteriorly directed. It shows an eccentric 75% to 80% lesion and it is an extremely small caliber vessel. The more medial branch is a little bit larger, but not that much larger and does not appear to have any significant obstruction. The continuation of the LAD has mild to moderate diffuse disease, but no focal critical stenosis as it extends to the apical region. Of note, just past that mid diagonal branch, there is a 35% narrowing of the LAD relative to the distal vessel. 3. Circumflex artery - a nondominant vessel supplying a high trifurcation marginal branch/first obtuse marginal branch followed by 3 more obtuse marginal branches and ending in a low lying posterior left ventricular branch. No significant obstruction was noted throughout the course of these vessels. Of note, the distal posterior left ventricular branch parallels the PDA to supply a portion of the inferior wall as well. B. Right coronary artery - the right coronary artery was a dominant vessel supplying the PDA with a bifurcating acute marginal branch just prior to the PDA with only a thread-like small posterior left ventricular branch. There is mild disease noted in the proximal portion of 35%. OVERALL ASSESSMENT: No significant compromise to the stents placed in the proximal to osteal LAD. The continuation finding of a significant obstruction to the lateral branch of the second diagonal branch is present. Interestingly, on LV analysis , the most impressive hypokinetic to akinetic area is the mid to distal anterolateral wall. Initially, I thought it may have been related to the tightest branch being the lateral branch of the bifurcating second diagonal branch. On reviewing the prior cardiac catheterization during the myocardial infarction, interestingly it was the more medial branch of the second diagonal branch that had somewhat slower flow down it and may have accounted for this wall motion abnormality extending toward the apical region. Still we are left with the potential for the angina being caused by the lateral branch. It is too small for any type of intervention, and medical management most likely would be the best approach. This information was shared with both Dr. Edin Newell and with Dr. Hernesto Little, her primary weapons system instrument mechanic. Aggressive risk factor management with lowering her cholesterol with high dose statin therapy clearly is critical to her well being in general, in addition to dual-antiplatelet therapy at this point in time. She will have followup with my partner, Dr. Horner next week for a wound check and then after that with Dr. Hernesto Little for ongoing cardiac management. This information was also shared with Dr. Facundo Bishop, the weapons system instrument mechanic who is taking care of her while in the hospital on the day of the cardiac catheterization. [id number]/[facility] #: [id number] MTDD
[2019-11-25 17:01] VITALS: BP 100/61
[2019-11-25] MEDS ORDERED: Nitro Patch/OINT Remove PATCH OFF SCH (21:00)
--- NOTE | 2019-11-26 01:00 | DS ---
CC: Dr. Newell * DISCHARGE SUMMARY: DATE OF ADMISSION: 11/24/19 DATE OF DISCHARGE: 11/25/19 ATTENDING PHYSICIAN: Dr. Taylor * (DICTATED BY GEREMIAS BAILEY NP). PRIMARY CARE PROVIDER: Dr. Newell. CONSULTING PHYSICIANS: Dr. Zavala and Dr. Kay. PRIMARY DIAGNOSES: 1. Chest pain. 2. Status post cardiac catheterization. SECONDARY DIAGNOSES: 1. History of STEMI. 2. Coronary artery disease with stents x2. 3. Hypertension. 4. Systolic heart failure. PROCEDURES: Cardiac catheterization performed by Dr. Kay. HISTORY OF PRESENT ILLNESS AND HOSPITAL COURSE: The patient presented to the emergency department on 11/24/19 with a complaint of prior chest pain. She reported going to [place] on 11/14/19, and during this time, she was active in water aerobics. She reported that on 11/23/19 towards the end of her last session, she became short of breath and developed chest pain in the center of her chest that did not radiate anywhere. She then reported that she had chest pain and shortness of breath that subsided with rest. Stated that she had an increased heart rate for approximately 30 minutes after her water aerobics session. She denied any more recent episodes of chest pain or shortness of breath. After she got back home on 11/24/19, she had a scheduled appointment with her primary care physician, Dr. Newell. She mentioned the chest pain and Dr. Newell contacted Dr. Little and Dr. Kay who recommended the patient come to the emergency room to be evaluated for unstable angina. While in the emergency department, she had routine lab work drawn. She had an EKG that showed no significant changes and she was at that time chest pain free and asymptomatic. She was also seen by Dr. Zavala, who noted her history of STEMI on 03/06/19 and stenting to the proximal LAD with a drug-eluting stent. She also noted that the patient underwent a stress test in September of this year; exercise Myoview, that showed a large fixed defect in the anterior wall and ejection fraction of 49%. The patient did undergo a cardiac catheterization earlier today, 11/25/19, with Dr. Kay. Per his report, he notes that there is no significant compromise to the stents placed in the proximal to ostial LAD. He does note that there was a continuation finding of a significant obstruction to the lateral branch of the second diagonal branch was present and that there was an area which could very well have a potential to still cause angina in the future. This vessel, however, was noted to be too small for any type of intervention and Dr. Kay notes that medical management would most likely be the best approach. He notes that this information was shared with both Dr. Newell and Dr. Little. The patient has plans to follow up. Also, we will be continuing with medications per the recommendations of the cardiology team. Per Dr. Kay and Dr. Bishop, the patient is okay to be discharged later today. STUDIES AND PROCEDURES: Cardiac catheterization: Overall assessment per Dr. Kay, no significant compromise to the stents placed in the proximal to ostial LAD. The continuation finding of a significant obstruction to the lateral branch of the second diagonal branch is present. Interestingly, on LV analysis, the most impressive hypokinetic to akinetic area is the mid to distal anterolateral wall. Initially, thought it may have been related to the tightest branch being the lateral branch of the second diagonal branch. On reviewing the prior cardiac catheterization during the myocardial infarction, interestingly it was the more medial branch of the second diagonal branch that had somewhat slower flow down it and may have accounted for this wall motion abnormality extending toward the apical region. Still we are left with the potential for the angina being caused by the lateral branch. It is too small for any type of intervention, and medical management most likely would be the best approach. This information was shared with both Dr. Newell and Dr. Little , her primary healthcare administrative assistant. Aggressive risk factor management with lowering her cholesterol with high dose statin therapy clearly is critical to her well being in general ,in addition to dual-antiplatelet therapy at this point in time. She will have followup with Dr. Horner next week for a wound check and then after that with Dr. Little for ongoing cardiac management. EKG from 11/24/19 showed normal sinus rhythm at 73 beats per minute, no ST elevations, similar to EKG from July 2019. PERTINENT LAB DATA: On arrival on 11/24/19: CK-MB 1.5, troponin 0.00 x2 and then third troponin 0.01. BNP 133. Glucose levels slightly elevated at 118 and 103. Last H and H 11.9 and 34. See progress note for review of systems and physical exam. DISCHARGE PLAN: 1. Continue with the heart-healthy diet. 2. No equipment necessary for discharge. 3. Continue with usual activity level as tolerated. Follow restrictions per Interventional cardiology in relation to specific access site for cardiac catheterization. 4. Chest pain, status post cardiac catheterization without further intervention , coronary artery disease with stents x2. Plan to follow up with PCP in 1 to 2 weeks. Follow up with Interventional Cardiology, appointment has been made. Followup with Dr. Little in 1 to 2 weeks. Continue Brilinta, aspirin, metoprolol, statin. It was noted that pt was unable to tolerate a higher intensity statin. Continue with nitro patch daily. 5. History of hypertension, systolic heart failure. Again, continue with usual medications and plan is to follow up with primary care, Interventional Cardiology, as well as usual healthcare administrative assistant. 6. Return precautions. Call 911 if there is a loss of feeling distal from the access site, sudden persistent pain, or if the area distal to the access site looks pale or feels cold to the touch. If there is bleeding from the puncture site that will not stop by holding pressure on it. If there is persistent chest discomfort or any unusual shortness of breath. MEDICATIONS AT DISCHARGE: 1. Aspirin 81 mg p.o. daily. 2. Metoprolol succinate XL 50 mg p.o. b.i.d. 3. Multivitamin 1 tab p.o. daily. 4. Nitroglycerin 0.2 mg/hour patch transdermally daily. 5. Omeprazole 40 mg p.o. daily. 6. Rosuvastatin 10 mg p.o. daily. 7. Brilinta 90 mg p.o. b.i.d. 8. Effexor XR 75 mg p.o. every other day. 9. Effexor XR 37.5 mg p.o. every other day. 10. Alendronate 70 mg p.o. weekly. 11. Calcium and vitamin D soft chewable, 1 chewable p.o. daily. 12. Cholecalciferol 1000 units p.o. daily. 13. Lisinopril 20 mg p.o. b.i.d. 14. Ubidecarenone 200 mg p.o. daily. 15. Valacyclovir 500 mg p.o. daily p.r.n. 16. Nitroglycerin tab 0.4 mg sublingual q.5 minutes p.r.n. CONDITION AT DISCHARGE: Stable. DISPOSITION: Home. TIME SPENT: Approximately 70 minutes were spent on this discharge. This plan has been discussed with my attending physician, Dr. Taylor, and he agrees with this plan. GEREMIAS BAILEY NP [id number]/CPS #: [id number]
[2019-11-26] MEDS ORDERED: Venlafaxine EXT RELEASE CAP* 37.5 MG PO SCH (09:00)
[2019-11-26] MEDS ORDERED: Venlafaxine EXT RELEASE CAP* 75 MG PO SCH (09:00)
== END 2019-11-25 17:55 | disposition home or self-care (01) ==
LOC: ED 11:58 → MEDTELE 15:00
PROVIDERS: ADMIT Internal Medicine; ATTEND Internal Medicine
DX: R07.9 Chest pain, unspecified (principal); I25.2 Old myocardial infarction; I25.119 Atherosclerotic 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of native coronary artery with unspecified angina pectoris; Z95.5 Presence of coronary angioplasty implant and graft; I11.0 Hypertensive 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with heart failure; I50.20 Unspecified systolic (congestive) heart failure; K21.9 Gastro-esophageal reflux disease without esophagitis; M81.0 Age-related osteoporosis without current pathological fracture; F32.9 Major depressive disorder, single episode, unspecified; F41.9 Anxiety disorder, unspecified; R06.02 Shortness of breath; R94.31 Abnormal electrocardiogram [ECG] [EKG]; M19.90 Unspecified osteoarthritis, unspecified site; Z79.899 Other long term (current) drug therapy; Z79.82 Long term (current) use of aspirin
CPT/HCPCS: 36415; 71046; 76937; 80048; 80053; 82550; 82553; 83735; 83880; 84443; 84484; 85025; 93005; 93458; 96372; 99285; A9270-GY; G0378; J1644; J1650; J2250; J3010